=== PATIENT | female | born 1950 | race Caucasian/White ===

== ENCOUNTER → 2016-06-24 | Outpatient (CLI) | payer MEDICARE, BC ==
--- NOTE | 2016-06-27 09:24 | MM ---
Reason for exam: screening (asymptomatic). Last mammogram was performed 1 year and 2 months ago. History: Patient is postmenopausal. Family history of premenopausal breast cancer in sister at age 53. Excisional biopsy of the left breast, 1986. Taking estrogen for 15 years beginning at age 48. Physical Findings: A clinical breast exam by your physician is recommended on an annual basis and results should be correlated with mammographic findings. MG Screening Mammo w CAD Bilateral CC and MLO view(s) were taken. Prior study comparison: May 07, 2015, bilateral MG screening mammo w CAD. April 03, 2014, bilateral MG screening mammo w CAD. There are scattered fibroglandular densities. Finding: There are typically benign calcifications in both breasts. There is a chronic nodularity in the left breast. No significant changes in finding since May 07, 2015 and April 03, 2014. ASSESSMENT: Benign, BI-RAD 2 RECOMMENDATION: Routine screening mammogram of both breasts in 1 year.
== END | disposition home or self-care (01) ==
LOC: RADMAMWWP 10:40
PROVIDERS: ATTEND Obstetrics & Gynecology
DX: Z12.31 Encounter for screening mammogram for malignant neoplasm of breast (principal); Z80.3 Family history of malignant neoplasm of breast

== ENCOUNTER → 2016-08-15 | Outpatient (CLI) | payer MEDICARE, BC ==
--- NOTE | 2016-08-15 15:14 | BD ---
EXAMINATION TYPE: MG DEXA axial skeleton. DATE OF EXAM: 08/15/2016 1:08 PM COMPARISON: NONE CLINICAL HISTORY: 66-year-old female postmenopausal screening Height: 63 Weight: 202.4 FRAX RISK QUESTIONS: Alcohol (3 or more units per day): yes Family History (Parent hip fracture): no Glucocorticoids (More than 3mos): no (Ex: prednisone, prednisolone, methylprednisolone, dexamethasone, and hydrocortisone). History of Fracture in Adulthood: no Secondary Osteoporosis: 1. Type 1 Diabetes: no 2. Hyperthyroidism: no 3. Menopause before 45: no 4. Malnutrition: no 5. Chronic liver disease: no Rheumatoid Arthritis: no Current Tobacco Use: no RISK FACTORS HISTORY OF: Hip Fracture (Right/Left): no Spine Fracture: no History of Wrist Fracture: no Surgery to Spine/Hip(right/left)/Wrist (right/left): lumbar spine -fusion When: 2012 Family History of Osteoporosis: yes Active: yes Diet low in dairy products/other sources of calcium: no Postmenopausal woman: hysterectomy age 43 Lost more than 2 inches in height since high school: yes Frequent falls: no Poor Health: no Adrenal Insufficiency: no MEDICATIONS: Thyroid Medications: levothyroxine How Lon years Additional History: EXAM MEASUREMENTS: Bone mineral densitometry was performed using the [employer] System. Bone mineral density about the R hip (g/cm2): 1.242 Bone mineral density about the L hip (g/cm2): 1.192 T Score values are as follows: -----R Neck: 1.5 -----L Neck: 1.1 -----R Intertrochanter: 0.9 -----L Intertrochanter: 0.0 Bone mineral density has: baseline here IMPRESSION: Normal bone mineral density as measured in the hips. Rescreen in 5 years. NOTE: T-SCORE=SD OF THE YOUNG ADULT MEAN.
== END | disposition home or self-care (01) ==
LOC: RADBDWWP 12:49
PROVIDERS: ATTEND Internal Medicine
DX: M81.0 Age-related osteoporosis without current pathological fracture (principal)
CPT/HCPCS: 77080

== ENCOUNTER → 2017-02-08 | Outpatient (CLI) | payer MEDICARE, BC ==
[2017-02-08 13:52] LABS: Blood Urea Nitrogen 24 mg/dL (7-17); Non-African American GFR(MDRD) 50 (>60 ml/min/1.73 sqM)
--- NOTE | 2017-02-08 15:49 | CT ---
EXAMINATION TYPE: CT urogram wo/w con DATE OF EXAM: 02/08/2017 HISTORY: Microscopic hematuria CT DLP: 3228mGycm Automated Exposure Control for Dose Reduction was Utilized. CONTRAST: CT scan of the abdomen and pelvis is performed without and with IV Contrast, patient injected with 80 ml mL of Visipaque 320. Urogram protocol with Three-D reconstructed images created on independent wo rkstation and reviewed. COMPARISON: None. FINDINGS: KUB: Noncontrast images show no renal calculi identified bilaterally. Postcontrast images show symmet bret cortical medullary uptake and excretion from both kidneys without evidence of concerning renal ma ss or hydronephrosis seen bilaterally. Visualized portion of both ureters show no suspicious filling defect. Urinary bladder is satisfactorily distended without abnormal intraluminal mass or wall thicke vidal. There are few scattered small pelvic phlebolith inferior to the bladder. LUNG BASES: No significant abnormality is appreciated. LIVER/GB: Liver is diffusely low dense consistent with fatty infiltration. There is 3.0 x 2.0 cm simp le appearing cyst right hepatic lobe on axial image 26. PANCREAS: No significant abnormality is seen. SPLEEN: There is tiny splenule anteriorly and laterally to the spleen seen on axial series 6 image 26 ADRENALS: No significant abnormality is seen. BOWEL: Diverticula are seen scattered throughout the colon most prominent in the sigmoid colon. There is no CT evidence for acute diverticulitis. UTERUS/ADNEXA: Uterus is surgically absent. LYMPH NODES: No greater than 1cm abdominal or pelvic lymph nodes are appreciated. OSSEOUS STRUCTURES: There is multilevel posterior fusion hardware from L2 through S1 level in the lum bar spine. There is artifact metallic disc material L4-L5 level. There are multilevel bilateral michael ectomy defects and spinous process resection. There is moderate joint space loss and spurring in both hips. There is moderate multilevel spurring in the thoracic spine. OTHER: There is mild to moderate atherosclerotic change of aorta extending into branch vessels. IMPRESSION: No significant finding is seen to account for patient's clinical symptoms.
== END ==
LOC: RADCTMAIN 13:11
PROVIDERS: ATTEND Internal Medicine
DX: R31.29 Other microscopic hematuria (principal)
CPT/HCPCS: 82565; 84520; 74178; 36415; 74400; Q9967

== ENCOUNTER → 2017-07-27 | Outpatient (CLI) | payer MEDICARE, BC ==
--- NOTE | 2017-07-28 08:09 | MM ---
Reason for exam: screening (asymptomatic). Last mammogram was performed 1 year and 1 month ago. History: Patient is postmenopausal. Family history of premenopausal breast cancer in sister at age 53. Excisional biopsy of the left breast, 1986. Taking estrogen for 15 years beginning at age 48. Physical Findings: A clinical breast exam by your physician is recommended on an annual basis and results should be correlated with mammographic findings. MG 3D Screening Mammo W/Cad Bilateral CC and MLO view(s) were taken. Prior study comparison: June 24, 2016, bilateral MG screening mammo w CAD. May 07, 2015, bilateral MG screening mammo w CAD. There are scattered fibroglandular densities. There is no discrete abnormality. No significant changes when compared with prior studies. ASSESSMENT: Negative, BI-RAD 1 RECOMMENDATION: Routine screening mammogram of both breasts in 1 year.
== END | disposition home or self-care (01) ==
LOC: RADMAMWWP 12:17
PROVIDERS: ATTEND Obstetrics & Gynecology
DX: Z12.31 Encounter for screening mammogram for malignant neoplasm of breast (principal); Z80.3 Family history of malignant neoplasm of breast
CPT/HCPCS: 77063; 77067

== ENCOUNTER → 2017-08-11 | Outpatient (CLI) | payer MEDICARE, BC ==
--- NOTE | 2017-08-11 20:52 | CT ---
EXAMINATION TYPE: CT lumbar spine wo con DATE OF EXAM: 08/11/2017 6:26 PM COMPARISON: NONE HISTORY: Low back and bilateral hip pain, worse on right. CT DLP: 931 mGycm Automated exposure control for dose reduction was used. Unenhanced CT of the lumbar spine was performed. Bone and soft tissue window settings are submitted as well as coronal and sagittal reconstructions. There are rods and screws fusing posteriorly the lumbar spine from L2 to S1. There is a few millimete r anterior subluxation of L4 in relation L5 and also 5 mm subluxation of L3 in relation L4. There is a disc prosthesis at L4-5. This appears in good position. Exam is limited by the metal artifact. Ther e is no lumbar paraspinal mass. There is no compression fracture. There is multilevel laminectomy def ect. Sacroiliac joints are intact. I see no focal bone destruction. There is osteosclerosis on both s ides of the L1-2 disc. There is vacuum disc at L1-2. I do not see evidence of obvious bony spinal beti nosis at the surgery levels. The spinal canal is narrowed at L1-2 due to facet arthropathy and mild p osterior disc herniation.. IMPRESSION: Multilevel fusion surgery. Degenerative mild subluxation at L3-4 L4-5. There is a mild spinal stenosi s at L-1-2 level due to posterior central disc herniation and hypertrophic facet arthropathy. No comp ression fracture.
== END | disposition home or self-care (01) ==
LOC: RADCTMAIN 18:05
PROVIDERS: ATTEND Internal Medicine
DX: M51.26 Other intervertebral disc displacement, lumbar region (principal); M46.96 Unspecified inflammatory spondylopathy, lumbar region
CPT/HCPCS: 72131

== ENCOUNTER → 2017-09-11 | Outpatient (CLI) | payer MEDICARE, BC ==
[2017-09-06 15:03] VITALS: BMI 33.7
[2017-09-11 14:24] VITALS: BP 140/82; PULSE 94; RESP 16
--- NOTE | 2017-09-11 15:17 | P.CONS ---
History of Present Illness - Reason for Consult Consult date: 09/11/17 - Chief Complaint Lower back pain - History of Present Illness This is a 67-year-old pleasant patient with a history of chronic lower back pain with radiation to the left knee and occasionally to the left ankle. The patient denies any numbness or tingling in the left leg or any weakness. She also denies any bowel or bladder dysfunction. The pain wakes her up at night but she denies any weight loss recently. Her pain gets worse by prolonged activities and improves by sitting down or lying down in bed. The patient takes ibuprofen for her pain. She tried tramadol and baclofen that she had to stop using them because of side effects. She used small dose of [place] previously which helped her pain. The patient had 2 back surgeries one in 1982 and a second one in 2012 and ended with fusion between L2 and S1. She had a computed tomography scan of the lumbar spine in July 2017 which showed rods and screws using posteriorly the lumbar spine from L2 to S1 and a vacuum disc at L1-L2 level also it showed spinal stenosis at the L1-L2. The patient lives with her and she denies using tobacco Review of Systems Constitutional: Denies as per HPI, Denies anorexia, Denies chills, Denies chronic headaches, Denies chronic pain, Denies daytime sleepiness, Denies fatigue, Denies fever, Denies lethargy, Denies malaise, Denies night sweats, Denies poor appetite, Denies sweats, Denies weakness, Denies weight gain, Denies weight loss Eyes: denies blurred vision, denies pain Cardiovascular: Denies chest pain, Denies shortness of breath Respiratory: Denies cough Gastrointestinal: Denies abdominal pain, Denies diarrhea, Denies nausea, Denies vomiting Musculoskeletal: Reports as per HPI Past Medical History Past Medical History: Asthma, Hyperlipidemia, Thyroid Disorder Additional Past Medical History / Comment(s): varicose veins, allergy induced asthma, arthritis, degenerative disks, History of Any Multi-Drug Resistant Organisms: None Reported Past Surgical History: Back Surgery, Hysterectomy, Joint Replacement, Orthopedic Surgery, Tonsillectomy Additional Past Surgical History / Comment(s): spinal fusion, laminectomy, rt carpal tunnel, partial left knee replacement, rt knee replacement, COLONOSCOPY, EGD Past Anesthesia/Blood Transfusion Reactions: Motion Sickness Past Psychological History: No Psychological Hx Reported Smoking Status: Never smoker Past Alcohol Use History: Occasional Past Drug Use History: None Reported - Past Family History Father Family Medical History: Cancer Sister(s) Family Medical History: Cancer Medications and Allergies Home Medications Medication Instructions Recorded Confirmed Type Levothyroxine Sodium [Synthroid] 50 mcg PO DAILY 01/28/14 09/11/17 History Estrogens, Conjugated [Premarin] 0.3 mg PO DAILY 09/06/17 09/11/17 History Ibuprofen [Advil] 400 - 600 mg PO Q8HR PRN 09/06/17 09/11/17 History Loratadine [Claritin] 10 mg PO DAILY 09/06/17 09/11/17 History Allergies Allergy/AdvReac Type Severity Reaction Status Date / Time Sulfa (Sulfonamide Allergy swelling,hi Verified 09/11/17 14:07 Antibiotics) ves adhesive tape AdvReac raw skin Uncoded 09/11/17 14:07 Physical Exam Vitals: Vital Signs Pulse Resp BP 09/11/17 14:10 94 16 140/82 - Constitutional General appearance: obese - EENT Eyes: PERRLA - Neurologic Neurologic: CNII-XII intact - Psychiatric Psychiatric: A&O x's 3, appropriate affect, intact judgment & insight Neuro exam of the lower extremities showed normal muscle strength and symmetrically and decreased knee reflexes bilaterally plus absent ankle reflexes bilaterally. Straight leg raising test negative bilaterally. Positive tenderness around the left sacroiliac joint. Wagner's test positive on the left side. Internal and external rotation of the hip joint on the left side did not elicit any hip pain. She has well-healed lumbar scar from her previous surgeries. She has tenderness in the lumbar paravertebral area bilaterally. Assessment and Plan Plan: This is a 67-year-old female with history of chronic lower back pain with radiation to the left leg with no paresthesia. The patient also does not have any weakness in the lower extremities or any bowel or bladder dysfunction. She might have left sacroiliac joint dysfunction and inflammation/sacroiliitis. He also has lumbar postlaminectomy pain syndrome. The patient may benefit from getting left sacroiliac joint steroid injection under fluoroscopic guidance. If this procedure does not help the patient's pain then we'll try caudal epidural steroid injection with lysis of adhesions. The patient also may be a candidate for spinal cord stimulator in the future. I'll give the patient prescription for [place] 5 mg 60 pills for one month if needed for severe pain. I thank you for the consultation
== END | disposition home or self-care (01) ==
LOC: PNWHC3 13:20
PROVIDERS: ATTEND Anesthesiology
DX: G89.29 Other chronic pain (principal); M54.5 Low back pain; M48.061 Spinal stenosis, lumbar region without neurogenic claudication; M96.1 Postlaminectomy syndrome, not elsewhere classified; M46.1 Sacroiliitis, not elsewhere classified; M53.88 Other specified dorsopathies, sacral and sacrococcygeal region; E78.5 Hyperlipidemia, unspecified; E07.9 Disorder of thyroid, unspecified; J45.909 Unspecified asthma, uncomplicated; Z79.891 Long term (current) use of opiate analgesic; Z79.1 Long term (current) use of non-steroidal anti-inflammatories (NSAID); Z98.890 Other specified postprocedural states; Z98.1 Arthrodesis status; Z96.653 Presence of artificial knee joint, bilateral; Z79.899 Other long term (current) drug therapy; Z88.2 Allergy status to sulfonamides; Z88.8 Allergy status to other drugs, medicaments and biological substances; Z79.52 Long term (current) use of systemic steroids
CPT/HCPCS: 99211

== ENCOUNTER 2017-09-14 08:16 | Day surgery (SDC) | payer MEDICARE, BC ==
[2017-09-12 11:23] VITALS: BMI 34.3
[2017-09-14 09:33] VITALS: TEMP 98.1
[2017-09-14] MEDS ORDERED: LACTATED RINGERS 1,000 ML IV ONE (09:41)
[2017-09-14] MEDS ORDERED: LIDOCAINE 1% 20 ML VIAL (10MG/ML) FOR IV START INTRADERMA ONE (09:43)
--- NOTE | 2017-09-14 10:17 | P.PCN ---
Date of Procedure: 09/14/17 Surgeon: Salomón Yeung Description of Procedure: Preoperative diagnoses: Left sacroilitis Postoperative diagnoses: Left sacroilitis. Procedure: Left sacroiliac joint steroid injection under fluoroscopic guidance. Surgeon: Salomón Yeung MD Anesthesia: IV sedation per hospital guidelines EBL: None Procedure indication: The patient had a history of severe chronic low back pain , diagnosed with sacroiliitis and lumbar sacral facet arthropathy unresponsive to conservative treatment. She has a history of previous back surgery. She has pain in her back and also significantly in her left sacroiliac joint. It radiates down her leg as well. Procedure description: The patient was seen and identified in the preoperative holding area, risks and benefits and alternative of the procedure and possible complications discussed with the patient, and he agreed with the preceding, patient signed the consent, an IV was started, and vital signs were monitored and were stable throughout the procedure, patient was placed in the prone position or table and the lumbosacral area was prepped and draped with a sterile fashion, vital signs were closely monitored during the procedure, the fluoroscopy camera was placed in the contralateral oblique view on the left sacroiliac joint and the lower part of the joint was identified a 2 mL then a 25 -gauge Quincke-type spinal needle advanced slowly under fluoroscopy and placed in the posterior and inferior border of the left sacroiliac joint, placement confirmed with AP and lateral view, and after appropriate needle placement confirmed and after negative aspiration for heme and CSF and there was , 3 ml of Marcaine 0.5% and 40 mg of Kenalog injected after negative aspiration, no paresthesia during the injection, no resistance to injection, and the needle was removed. The entire same procedure was repeated for the left sacroiliac joint Patient tolerated the procedure well without any complication. The patient returned to supine position after the back was cleaned and a Band- Aid applied, the patient transported to recovery room in stable condition and he was monitored for 30 minutes before he was discharged home and then patient was reexamined before going home and patient was discharged in stable condition and patient will follow up for repeat of left sacroiliac joint injection followed by caudal epidural steroid injection.
[2017-09-14] MEDS ORDERED: IV FLUID CONTINUATION 1,000 ML IV ONE (10:32)
[2017-09-14 10:38] VITALS: RESP 18
[2017-09-14 10:51] VITALS: BP 168/78; PULSE 71
--- NOTE | 2017-09-14 11:12 | FL ---
EXAMINATION TYPE: FL guided pain mgmt statistic DATE OF EXAM: 09/14/2017 CLINICAL HISTORY: Low back and left sacroiliac joint pain. TECHNIQUE: Fluoroscopy. COMPARISON: None. FINDINGS: Fluoroscopic guidance was provided during pain relief procedure performed by Dr. Yeung . A total of 1 second of fluoroscopic time was utilized during the procedure and single spot fluorosco pic image is acquired. Single image acquired shows needle localization at level of right sacroiliac joint. There is partial visualization of surgical change in the lower lumbar spine. IMPRESSION: As Above.
== END 2017-09-14 11:04 | disposition home or self-care (01) ==
LOC: ORPAIN 08:16
PROVIDERS: ATTEND Anesthesiology
DX: G89.29 Other chronic pain (principal); M46.1 Sacroiliitis, not elsewhere classified; M96.1 Postlaminectomy syndrome, not elsewhere classified; M46.97 Unspecified inflammatory spondylopathy, lumbosacral region; Z98.1 Arthrodesis status; J45.909 Unspecified asthma, uncomplicated; E78.5 Hyperlipidemia, unspecified; E07.9 Disorder of thyroid, unspecified; I83.90 Asymptomatic varicose veins of unspecified lower extremity; M19.90 Unspecified osteoarthritis, unspecified site; Z96.653 Presence of artificial knee joint, bilateral; Z79.890 Hormone replacement therapy; Z79.899 Other long term (current) drug therapy; Z88.2 Allergy status to sulfonamides
CPT/HCPCS: J2250; J1030; G0260; 27096

== ENCOUNTER → 2017-10-09 | Outpatient (CLI) | payer MEDICARE, BC ==
[2017-10-09 13:28] VITALS: BP 145/89; PULSE 82; RESP 16
--- NOTE | 2017-10-09 13:51 | P.PN ---
Progress Note - Text Progress Note Date: 10/09/17 his is a 67-year-old female with history of chronic lower back pain with radiation to the left leg with no paresthesia. The patient also does not have any weakness in the lower extremities or any bowel or bladder dysfunction. She might have left sacroiliac joint dysfunction and inflammation/sacroiliitis. He also has lumbar postlaminectomy pain syndrome. The patient had more than 50% of pain relief after her sacroiliac joint steroid injection recently. She still gets pain in the right groin anteriorly and in the back of her right thigh. The patient was told by her primary care physician to stop using ibuprofen which she thinks it will be a hardship for her because of her dependence on this medicine for many years. She was only 3 pills of [place] since last time we saw her and she still has 37 pills left of the last prescription that she received from us for 60 pills. By physical exam she is alert oriented 3 in no apparent distress Neuro exam of the lower extremities within normal limits with no changes from previously. Internal and external rotation of the right hip joint did not elicit any pain. The patient is going to receive her second sacroiliac joint steroid injection tomorrow. The patient will come off ibuprofen and now she will depend completely on [place] for her pain. We will see how many pills of [place] we will be needed to control her pain. If the patient gets good results of the sacroiliac joint injection for the second time then we plan on doing RFA of L5,S1,2,3 MB in the future, however the patient understands that sometimes RFA does not give the same results as the SI injection injection. We will see the patient 4 weeks from now.
== END | disposition home or self-care (01) ==
LOC: PNWHC3 13:05
PROVIDERS: ATTEND Anesthesiology
DX: G89.29 Other chronic pain (principal); M53.3 Sacrococcygeal disorders, not elsewhere classified; M46.1 Sacroiliitis, not elsewhere classified; M96.1 Postlaminectomy syndrome, not elsewhere classified; Z79.891 Long term (current) use of opiate analgesic
CPT/HCPCS: 99211

== ENCOUNTER → 2017-10-10 | Day surgery (SDC) | payer MEDICARE, BC ==
[2017-10-04 16:12] VITALS: BMI 34.3
[~2017-10-10] MED LIST: IV FLUID CONTINUATION 1,000 ML IV ONE; LACTATED RINGERS 1,000 ML IV ONE; LACTATED RINGERS 1,000 ML IV SCH; LIDOCAINE 1% 20 ML VIAL (10MG/ML) FOR IV START INTRADERMA ONE
[2017-10-10 09:01] VITALS: RESP 16; TEMP 98.1
[2017-10-10 09:07] LABS: Glucose,Whole Blood 73 mg/dL (75-99)
--- NOTE | 2017-10-10 10:33 | P.PCN ---
Date of Procedure: 10/10/17 Surgeon: Deo Mueller Pathology: none sent Condition: stable Disposition: PACU Description of Procedure: PREOPERATIVE DIAGNOSIS: 1-Bilateral sacroiliitis. 2 Lumbar DDD POSTOPERATIVE DIAGNOSIS:. 1-Bilateral sacroiliitis. 2 Lumbar DDD PROCEDURES: Left Sacroiliac joint steroid injection with fluoroscopic guidance ANESTHESIA: Local with 1% lidocaine; conscious sedation EBL: Minimal. PROCEDURE INDICATIONS: This patient with a history of low back pain secondary to sacroiliitis and lumbar DDD unresponsive to conservative management, #2 in series. No use of blood thinners. PROCEDURE DESCRIPTION: The patient was seen and identified in the preoperative area. Risks, benefits, complications, and alternatives were discussed with the patient (including but not limited to incomplete pain relief, bleeding, infection, nerve damage, and allergies to medications), the patient agreed to proceed with the procedure and signed the consent after all questions were answered. Patient was taken to the OR and time out was completed to verify proper patient , position, laterality of pain, and allergies. Pt was placed in the prone position and a pillow was placed under the abdomen to reduce lumbar lordosis. The lumbosacral area was prepped and draped in the usual sterile fashion. Critical pause was taken. Vital signs were closely monitored during the procedure. The fluoroscopic camera was placed in contralateral oblique view and right sacroiliiac joint lower pole was identified. After local infiltration with 1% lidocaine 2 ml, Subsequently, a 22-gauge 3.5 inch spinal needle was introduced into the posteroinferior aspect of the left sacroiliac joint under direct fluoroscopic visualization. Subsequently, 4 ml of a solution of a total of 4 ml solution containing total 3 mL of 0.5% preservative-free bupivicaine mixed with 40 mg of Kenalog was injected after negative aspiration for CSF, blood, and air and negative for paresthesia. Needle was withdrawn intact. Skin was cleansed, and bandages were applied. COMPLICATIONS: None. COMMENTS: DISPOSITION / PLANS: The patient was placed in a supine position and transferred to the recovery area in a stable condition for observation and was discharged from the recovery room after meeting discharge criteria. Home discharge instructions given to the patient by the staff. The patient was reexamined prior to discharge and there were no issues. The patient will schedule a follow up visit in clinic in 4 weeks.
--- NOTE | 2017-10-10 10:40 | FL ---
EXAMINATION TYPE: FL guided pain mgmt statistic DATE OF EXAM: 10/10/2017 HISTORY: Flouroscopy time 9 seconds of fluoroscopy provided. IMPRESSION: 1. Fluoroscopy time.
[2017-10-10 10:55] VITALS: BP 150/84; PULSE 60
== END | disposition home or self-care (01) ==
LOC: ORPAIN 08:29
PROVIDERS: ATTEND Anesthesiology
DX: G89.29 Other chronic pain (principal); M46.1 Sacroiliitis, not elsewhere classified; M96.1 Postlaminectomy syndrome, not elsewhere classified; M51.16 Intervertebral disc disorders with radiculopathy, lumbar region; Z88.2 Allergy status to sulfonamides; Z91.048 Other nonmedicinal substance allergy status
CPT/HCPCS: J2250; J3301; Q9966; G0260; 27096

== ENCOUNTER → 2017-11-07 | Outpatient (CLI) | payer MEDICARE, BC ==
[2017-11-07 12:26] VITALS: BP 151/81; PULSE 76; RESP 16
--- NOTE | 2017-11-07 13:38 | P.PAINPG ---
Subjective Progress Note Date: 11/07/17 This is follow-up visit for this patient with a history of severe and chronic low back pain secondary to left sacroiliac joint dysfunction/sacroiliitis. We have done interventional pain procedures left sacroiliac joint steroid injections 2 and she gets good pain relief Patients currently on [place] 5/325 every 6 hours , she is currently cannot take any NSAIDs because she had deterioration of her kidney functions, he tried Ultram in the past without any significant benefit Patient denies any side effects of the medication, denies excessive drowsiness or sleepiness, denies suicidal ideation, and reports that the current pain medication is helping to control the pain and improve activity of daily living Patient denies any motor or sensory deficit , patient denies any fever or night sweats, denies any change in the bowel movements or urination Physical Examinations : 1-Constitutional : Cooperative , not in acute distress . 2-HEENT : nech ; supple , no Lymphadenopathy , no Thyromegaly , normal thyroid size . eyes : no ptosis , no icterus, no photophobia . ENT : normal of hearing , normal oropharynx , no Thrush . 3- Respiratory : Chest clear to auscultations Bilaterally , no wheezing , no Rhonchi . 4- Cardiovascular : regular rate and rhythem , S1 , S2 , no S3 , no S4. 5- Gastrointestinal : abdomen soft no tenderness , bowel sounds positive all four quadrents , no organomegally . 6- Genitourinary : Defferred . 7- neurologic: Cranial nerve II to XII intact , no focal neurological deffecit . 8- Psychatric: alert , oriented X 3 , appropriate affect , intact judgment and insight . 9- Lymphatic : no Lymphadenopathy . 10- Musculoskeltal : exams of the Lumber spine =motor strength lower extremities ,thigh and legs .5/5 deep tendon reflexes : normal Knee Jerk , normal ankle Jerk . lumber facet Loading Test positive strait leg raising test negative bilaterally Fabere test negative bilaterally Range of motion: Range of motion in flexion of the lumbar spine decreased Range of motion range of motion of extension of the lumbar spine and decreased Sever tenderness over the Sacroiliac joint on the Left side , moderate tenderness on the right sacroiliac joint Assessment and plan = Chronic low back pain secondary to left sacroiliac joint dysfunction, left sacroiliitis, (currently she is having bilateral sacroiliitis) Status post left side sacroiliac joint steroid injections 2 to get good result after the sacroiliac joint steroid injections should he had more than 80 % improvement after the first sacroiliac joint injection and the pain relief lasted for a few weeks, and she had pain relief after the second injection her VNS and dropped from 8/10 -2/10 for a few hours, chronic and current use of high-risk medication (Opioids). The patient was counseled about risk of opioid use, psychological risk associated with opioids and was orally counseled to not overuse , divert,or sell dictations to take medications as prescribed only , and to restore medication in safe location , the patient counseled against driving while using narcotic medications , and also not to use alcohol or any illicit recreational drugs, patient's verbalized understanding that the lack of compliance will result in failure to renew narcotic prescription and possible discharge from the clinic - diagnoses, prognosis, and treatment options including but not limited to physical therapy, surgical interventions, interventional therapies , and medication management including narcotics and adjuvant medication were discussed with the patient and all the questions answered Prescription refill for [place] 5/325 every 8 hours dispensed 60 with 1 refill Patient will be good candidate to have a radiofrequency ablation of the left L5-S1 facet prominence and the radiofrequency ablation of the left lateral branches of S1/S2/S3 Patient very hesitant to have radiofrequency ablation of the left sacroiliac joint , she preferred to have a steroid injection, and because patient currently complaining of pain in both sides she will be good candidate to have bilateral sacroiliac joint steroid injections under fluoroscopy guidance PQRS Measure Charge Sheet Measure #130: Documentation of Current Meds in Medical Chart: Patient's medications documented in chart Measure #226: Tobacco Use: Screen & Cessation Intervention: Pt not a tobacco user Measure #111: Pneumonia Vaccination: Pneumococcal vaccine administered or previously received Measure #47: Advance Care Plan: Advance care planning discussed & documented, plan or surrogate given Measure #412: Opioid Treatment Agreement: Documented signed opioid trtmnt agreemnt min once during opioid trtmnt Measure #408: Opioid Therapy Follow-up Evaluation: Patient had f/u eval minimum every 3 months during opioid therapy Measure #317: Preventitive Care & Scrn High Bld Press & F/U: Pre-hypertensive or hypertensive BP documented, pt will f/u with PCP Measure #128: Body Mass Index (BMI) Screening & Follow-up: BMI documented ABOVE normal parameters - f/u documented Measure #131: Pain Assessment & Follow-up: Pain positive & plan documented, Follow-up scheduled Measure #431: Unhealthy Alcohol Use Preventative Care & Scrn: Patient not identified as an unhealthy alcohol user PQRS Narrative: Smoking Status Never smoker Narcotic Agreement Date Signed 09/11/17 Hx Alcohol Use (MH) Yes: social Home Medications: Ambulatory Orders Estrogens, Conjugated [Premarin] 0.3 mg PO DAILY 09/06/17 Ibuprofen [Advil] 400 - 600 mg PO BID 09/06/17 Loratadine [Claritin] 10 mg PO DAILY PRN 09/06/17 Aspirin 325 mg PO DAILY 09/12/17 Calcium Carbonate [Calcium] 600 mg PO DAILY 09/12/17 Fluticasone Nasal [place] [Flonase Nasal [place]] 1 spray EA NOSTRIL DAILY PRN 09/12 Levothyroxine Sodium [Synthroid] 75 mcg PO DAILY 09/12/17 HYDROcodone/APAP 5-325MG [[place] 5-325] 1 tab PO BID 10/09/17 Controlled Substance Measures - Controlled Substance Measures Is patient prescribed a controlled substance at discharge?: Yes When asked, does pt state using other controlled substances?: Yes If prescribed controlled substance>3 days was MAPS reviewed?: Yes If Rx opioid, was Start Talking consent form obtained?: Yes If opioid is for acute pain is fill amount 7 days or less?: No Was information provided regarding opioid addiction?: Yes
== END | disposition home or self-care (01) ==
LOC: PNWHC3 12:01
PROVIDERS: ATTEND Specialist
DX: G89.29 Other chronic pain (principal); M53.3 Sacrococcygeal disorders, not elsewhere classified; M46.1 Sacroiliitis, not elsewhere classified; Z79.891 Long term (current) use of opiate analgesic; Z79.1 Long term (current) use of non-steroidal anti-inflammatories (NSAID); Z79.82 Long term (current) use of aspirin; Z79.899 Other long term (current) drug therapy
CPT/HCPCS: 99211

== ENCOUNTER 2017-11-22 06:05 | Day surgery (SDC) | payer MEDICARE, BC ==
[2017-11-16 12:44] VITALS: BMI 34.3
--- NOTE | 2017-11-22 06:48 | P.PCN ---
Date of Procedure: 11/22/17 Description of Procedure: PREOPERATIVE DIAGNOSIS: 1-Bilateral sacroiliitis. 2 Lumbar DDD POSTOPERATIVE DIAGNOSIS:. 1-Bilateral sacroiliitis. 2 Lumbar DDD PROCEDURES: Left Sacroiliac joint steroid injection with fluoroscopic guidance ANESTHESIA: Local with 1% lidocaine; conscious sedation EBL: Minimal. PROCEDURE INDICATIONS: This patient with a history of low back pain secondary to sacroiliitis and lumbar DDD unresponsive to conservative management, #2 in series. No use of blood thinners. PROCEDURE DESCRIPTION: The patient was seen and identified in the preoperative area. Risks, benefits, complications, and alternatives were discussed with the patient (including but not limited to incomplete pain relief, bleeding, infection, nerve damage, and allergies to medications), the patient agreed to proceed with the procedure and signed the consent after all questions were answered. Patient was taken to the OR and time out was completed to verify proper patient , position, laterality of pain, and allergies. Pt was placed in the prone position and a pillow was placed under the abdomen to reduce lumbar lordosis. The lumbosacral area was prepped and draped in the usual sterile fashion. Critical pause was taken. Vital signs were closely monitored during the procedure. The fluoroscopic camera was placed in contralateral oblique view and right sacroiliiac joint lower pole was identified. After local infiltration with 1% lidocaine 2 ml, Subsequently, a 25-gauge 3.5 inch spinal needle was introduced into the posteroinferior aspect of the left sacroiliac joint under direct fluoroscopic visualization. Subsequently, 4 ml of a solution of a total of 4 ml solution containing total 3 mL of 0.5% preservative-free bupivicaine mixed with 40 mg of Kenalog was injected after negative aspiration for CSF, blood, and air and negative for paresthesia. Needle was withdrawn intact. Skin was cleansed, and bandages were applied. COMPLICATIONS: None. COMMENTS: DISPOSITION / PLANS: The patient was placed in a supine position and transferred to the recovery area in a stable condition for observation and was discharged from the recovery room after meeting discharge criteria. Home discharge instructions given to the patient by the staff. The patient was reexamined prior to discharge and there were no issues. The patient will schedule a follow up visit in clinic in 4 weeks.
[2017-11-22 06:53] VITALS: RESP 16; TEMP 98.2
[2017-11-22] MEDS ORDERED: LIDOCAINE 1% 20 ML VIAL (10MG/ML) FOR IV START INTRADERMA ONE (06:53)
[2017-11-22] MEDS ORDERED: FAMOTIDINE 20 MG/2 ML VIAL ONE (06:54)
[2017-11-22] MEDS ORDERED: LACTATED RINGERS 1,000 ML IV SCH (07:00)
[2017-11-22] MEDS ORDERED: IV FLUID CONTINUATION 1,000 ML IV ONE ×2 (07:33)
--- NOTE | 2017-11-22 07:41 | FL ---
Fluoroscopy INDICATION: Pain FINDINGS: Fluoroscopy time: 36 seconds. Images obtained: 2. IMPRESSIONS: 1. Documentation of fluoroscopy.
[2017-11-22 07:54] VITALS: BP 149/82; PULSE 67
== END 2017-11-22 08:05 | disposition home or self-care (01) ==
LOC: ORPAIN 06:05
PROVIDERS: ATTEND Anesthesiology
DX: M46.1 Sacroiliitis, not elsewhere classified (principal); M51.36 Other intervertebral disc degeneration, lumbar region; Z79.899 Other long term (current) drug therapy; Z88.2 Allergy status to sulfonamides
CPT/HCPCS: J2250; J3301; J3010; G0260; 99152

== ENCOUNTER → 2017-12-25 | Outpatient (CLI) | payer MEDICARE, BC ==
[2017-12-25 12:03] VITALS: BP 149/84; PULSE 84; RESP 18
--- NOTE | 2017-12-25 15:02 | P.PAINPG ---
Subjective Progress Note Date: 12/25/17 This is follow-up visit for this patient with a history of severe and chronic low back pain secondary to lumbar postlaminectomy pain syndrome, left sacroiliitis, We have done an interventional pain procedure left sacroiliac joint steroid injection she got good relief but for short term The patient currently on [place] 5/325 twice a day and Motrin 600 mg when necessary Patient denies any side effect of the medication , patient denies any excessive drowsiness or sleepiness, patient denies any suicidal ideation, Patient reported that the current medication is helping to control the pain and improve the activity of daily livings, Patient denies any motor or sensory deficit, denies any change in the bowel movement or urination, patient denies any fever or night sweats. Patient here today for follow-up visit and medication refill Objective - Vital Signs Vital signs: Vital Signs Temp Pulse 84 12/25/17 11:54 Resp 18 12/25/17 11:54 BP 149/84 12/25/17 11:54 Pulse Ox 94 L 12/25/17 11:54 Intake & Output 12/24/17 12/25/17 12/25/17 18:59 06:59 18:59 Weight 90.718 kg - Exam Physical Examinations : 1-Constitutiona : Cooperative , not in acute distress . 2-HEENT : nech ; supple , no Lymphadenopathy , normal thyroid size . eyes : no ptosis , no icterus , no photophobia . ENT : normal of hearing , normal oropharynx , no Thrush . 3- Respiratory : Chest clear to auscultations Bilaterally , no wheezing , no Rhonchi . 4- Cardiovascular : regular rate and rhythem , S1 , S2 , no S3 , no S4. 5- Gastrointestinal : abdomen soft no tenderness , bowel sounds , no organomegally . 6- Genitourinary : Defferred . 7- neurologic : Cranial nerve II to XII intact , no focal neurological deffecit . 8-psychatric : alert , oriented X 3 , appropriate affect , intact judgment and insight . 9-Lymphatic : no Lymphadenopathy . 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, left sacroiliitis, she had good result after the left sacroiliac joint steroid injection but only for short chronic and current use of high-risk medication (opioids) Patient denies any side effects of the current pain medication and the current treatment/medication helping the patient to do activity of daily living , Diagnoses, prognosis, treatment options, including but not limited to physical therapy, medication management, interventional therapies, and surgery, were discussed with the patient All the questions answered The narcotic consent was signed and patient agreed and understood the side effects and complications of opioid treatment. Patient signed the narcotic agreement, and was orally counseled, not to overuse, not to abuse, not to Divert , not tp sell pain medication, and to take it as prescribed only, Patient was counseled not to drive or operate heavy equipment while using narcotic medication, and advised not to use alcohol or any Illicit drugs while using the narcotis, the patient's verbalized understanding that lack of compliance with any of the above instructions, will likely to cause discharge from, the pain service, not to renew his narcotic prescriptions Medication managements= patient will be given prescription refills for [place] 5/325 every 12 hours dispense 60 with 1 refill, Interventions= patient will be good candidate for radiofrequency ablation of the left-sided L5-S1 Dorsal ramus , and radiofrequency ablation of the left side lateral branches of S1/S2/S3 Procedure risk and benefit from alternative discussed with the patient she agreed with proceeding , PQRS Measure Charge Sheet Measure #130: Documentation of Current Meds in Medical Chart: Patient's medications documented in chart Measure #226: Tobacco Use: Screen & Cessation Intervention: Pt not a tobacco user Measure #111: Pneumonia Vaccination: Pneumococcal vaccine administered or previously received Measure #47: Advance Care Plan: Advance care planning discussed & documented, pt chose/unable to give Measure #412: Opioid Treatment Agreement: Documented signed opioid trtmnt agreemnt min once during opioid trtmnt Measure #408: Opioid Therapy Follow-up Evaluation: Patient had f/u eval minimum every 3 months during opioid therapy Measure #317: Preventitive Care & Scrn High Bld Press & F/U: Pre-hypertensive or hypertensive BP documented, pt will f/u with PCP Measure #128: Body Mass Index (BMI) Screening & Follow-up: BMI documented ABOVE normal parameters - f/u documented Measure #131: Pain Assessment & Follow-up: Pain positive & plan documented, Follow-up scheduled Measure #431: Unhealthy Alcohol Use Preventative Care & Scrn: Patient not identified as an unhealthy alcohol user PQRS Narrative: Smoking Status Never smoker Do You Want the Pneumonia Yes Vaccine AT THIS TIME? Narcotic Agreement Date Signed 09/11/17 Blood Pressure 149/84 Pain Intensity [Lower Back] 6 Scale Used Numeric (1 - 10) Hx Alcohol Use (MH) Yes: social Home Medications: Ambulatory Orders Estrogens, Conjugated [Premarin] 0.3 mg PO DAILY 09/06/17 Ibuprofen [Advil] 400 - 600 mg PO BID 09/06/17 Loratadine [Claritin] 10 mg PO DAILY PRN 09/06/17 Aspirin 325 mg PO DAILY 09/12/17 Calcium Carbonate [Calcium] 600 mg PO DAILY 09/12/17 Fluticasone Nasal [place] [Flonase Nasal [place]] 1 spray EA NOSTRIL DAILY PRN 09/12 Levothyroxine Sodium [Synthroid] 75 mcg PO DAILY 09/12/17 HYDROcodone/APAP 5-325MG [[place] 5-325] 1 tab PO BID #60 tab 12/25/17 Controlled Substance Measures - Controlled Substance Measures Is patient prescribed a controlled substance at discharge?: Yes When asked, does pt state using other controlled substances?: No If prescribed controlled substance>3 days was MAPS reviewed?: Yes If Rx opioid, was Start Talking consent form obtained?: Yes If opioid is for acute pain is fill amount 7 days or less?: No Was information provided regarding opioid addiction?: Yes
== END | disposition home or self-care (01) ==
LOC: PNWHC3 11:35
PROVIDERS: ATTEND Specialist
DX: G89.29 Other chronic pain (principal); M96.1 Postlaminectomy syndrome, not elsewhere classified; M46.1 Sacroiliitis, not elsewhere classified; Z79.1 Long term (current) use of non-steroidal anti-inflammatories (NSAID); Z79.899 Other long term (current) drug therapy; Z79.82 Long term (current) use of aspirin; Z79.891 Long term (current) use of opiate analgesic
CPT/HCPCS: 99211

== ENCOUNTER 2018-01-16 08:34 | Day surgery (SDC) | payer MEDICARE, BC ==
[2018-01-11 11:52] VITALS: BMI 34.3
[~2018-01-16 08:34] MED LIST changes: -IV FLUID CONTINUATION 1,000 ML IV ONE; -LACTATED RINGERS 1,000 ML IV ONE; -LIDOCAINE 1% 20 ML VIAL (10MG/ML) FOR IV START INTRADERMA ONE
[2018-01-16 10:29] VITALS: PULSE 87; RESP 18; TEMP 99.3
[2018-01-16] MEDS ORDERED: LIDOCAINE 1% 20 ML VIAL (10MG/ML) FOR IV START INTRADERMA ONE (10:42)
[2018-01-16 10:52] LABS: Glucose,Whole Blood 83 mg/dL (75-99)
--- NOTE | 2018-01-16 11:53 | P.PCN ---
Date of Procedure: 01/16/18 Procedure(s) Performed: PREOPERATIVE DIAGNOSIS: 1-Lumbosacral spondylosis with facet arthropathy without myelopathy. 2- sacroiliit. 3- Failed back surgery syndrome lumbar area post operative Diagnosis: . 1-Lumbosacral spondylosis with facet arthropathy without myelopathy. 2- sacroiliit. 3- Failed back surgery syndrome lumbar area PROCEDURES: 1- Left radiofrequency thermocoagulation/ablation of the L5 dorsal ramus. 2- Left multi-site radiofrequency thermocoagulation/ablation of the S1, S2, lateral branchs. The procedure was performed using fluoroscopic guidance during needle placement to assure proper position and maximize safety . ANESTHESIA: LOCAL ANESTHESIA = moderate sedation with intravenous versed 2 mg and Fentanyle 100 mcg EBL: NONE INDICATION/MEDICAL NECESSITY: History of low back pain secondary to sacroiliitis and lumbosacral arthropathy unresponsive to more conservative treatments. The patient reported more than 50 % relief of pain symptoms . PROCEDURE DESCRIPTION: The patient was seen and identified in the preoperative area. Risks, benefits, complications, and alternatives were discussed with the patient. The patient agreed to proceed with the procedure and signed the consent. Vital signs were checked before and after the procedure and they remained stable. Patient ambulated to the procedure room and time out was completed. The patient was placed in the prone position on the procedure table and a pillow was placed under the abdomen to reduce lumbar lordosis. The lumbosacral area was prepped and draped in the usual sterile fashion. Critical pause was taken. L5 Dorsal Ramus RF: Using right oblique fluoroscopy, the junction of the transverse process and the superior articular process of the Left S1 vertebra, which correspond to the fluoroscopic image of the "eye of the Chaz dog" was identified. Subsequently, a 10-cm 20 -gauge ( VENUM ) radiofrequency cannula with a 10-mm active tip was advanced under fluoroscopic guidance until contact was made with periosteum. At this level, the Sensory testing of the L5 dorsal ramus was performed at 50 Hz and 0 to 1 volt with production of concordant pain starting at 0.5 volt. Motor stimulation was done at 2.5 Hz with stimulation of mulitifidus muscle contration . No radicular symptoms or paresthesias were produced during the testing. Subsequently, the L5 dorsal ramus was subjected to a radiofrequency ablation at 80 degree celsius for 90 seconds . after 0.5% Bupivacaine 1 ml mixed with 20 mg Kenalog ,injected at each level after negative aspirations .. S1, S2 Lateral Branch RF: The lateral margins of the Left S1, S2, foramina were identified using AP fluoroscopy. Under fluoroscopic guidance, three 10-cm 20 -gauge ( VENUM ) radiofrequency cannula with a 10-mm active tip were inserted at 8-10 mm peripheral to the posterior S1 foramen, at various locations using clock-face coordinates. The center of the clock was registered at the lateral margin of the foramen. The 9:30, 8:00, and 6:30 oclock positions were used. At this level , the sensory testing of the S1 lateral branch was performed at 50 Hz and 0 to 1 volt at the three levels with production of concordant pain starting at 0.5 volt. Motor stimulation was done at 2.5 Hz. No radicular symptoms or paresthesias were produced during the testing. Subsequently, the S1 lateral branch was subjected to a radiofrequency ablation at a mode of 90 seconds at 80 degrees Celsius at the 3 levels after negative motor and sensory testing and after injecting 0.5 ml of preservative free Bupivacaine 0.5 %. The same procedure was performed at the level of the S2 foramen. I was not able to visualize S3 foramina The needle was withdrawn intact after each injection. COMPLICATIONS: The patient tolerated the procedure well without any acute complications. DISPOSTION/PLAN: The patient ambulated to the recovery area after the procedure in a stable condition for observation. Patient was reexamined prior to discharge. Patient was observed for 30 minutes in the recovery area and was discharged home, accompanied by an adult, after meeting discharged criteria. Discharge instructions were give to the patient by the staff. Patient was specifically instructed not to drive today and to rest for the rest of the day. The patient will schedule a follow up visit in the clinic in weeks or earlier if needed.
[2018-01-16] MEDS ORDERED: IV FLUID CONTINUATION 1,000 ML IV ONE (11:56)
--- NOTE | 2018-01-16 11:59 | FL ---
Fluoroscopy HISTORY: Pain 13 seconds fluoroscopy time supplied to the referring clinician. 7 intraoperative C-arm images docum ent the procedure. See dictated report from anesthesia.
[2018-01-16 12:30] VITALS: BP 153/72
== END 2018-01-16 12:34 | disposition home or self-care (01) ==
LOC: ORPAIN 08:34
PROVIDERS: ATTEND Specialist
DX: M47.817 Spondylosis without myelopathy or radiculopathy, lumbosacral region (principal); M46.1 Sacroiliitis, not elsewhere classified; M96.1 Postlaminectomy syndrome, not elsewhere classified; Z88.2 Allergy status to sulfonamides; Z91.048 Other nonmedicinal substance allergy status; Z90.710 Acquired absence of both cervix and uterus
CPT/HCPCS: 64640; 64635; J2250; J3301; J3010; 99152; 99153

== ENCOUNTER → 2018-02-01 | Outpatient (CLI) | payer MEDICARE, BC ==
[2018-02-01 13:40] VITALS: BP 135/86; PULSE 91; RESP 16
--- NOTE | 2018-02-01 14:04 | P.PN ---
Subjective Progress Note Date: 02/01/18 This is a 68-year-old lady with history of chronic lower back pain due to failed back surgery syndrome. The patient underwent left sacroiliac joint residency ablation lately which relieved part of her pain however she still has pain at the L5-S1 junction. Recently also she notes swelling around the left elbow however she denies any fever or chills. The patient has been taking 2 pills a day of [place] 5 mg for her lower back pain. Today, pt denies new-onset weakness, bowel/bladder incontinence, or any other signs or symptoms of cauda equina syndrome. There are no signs of acute intoxication, and no indications of medication diversion or overuse. In addition to above, 13-point review of systems is also negative for chest pain , shortness of breath, changes in vision, changes in hearing, new onset weakness , abdominal pain, diarrhea, extreme fatigue, malaise, fever, skin changes, homicidal or suicidal ideation, or bowel or bladder incontinence. Vital Signs: Reviewed in EMR Gen: AAOx3, NAD HEENT: PERRLA,hearing grossly normal Pulm: resp unlabored,CTA Heart:S1,S2, No Mur Neck: supple, trachea midline Positive tenderness in the left lumbar paravertebral area Neuro: CN II-XII grossly intact, Imaging: Reviewed in EMR/chart Assessment: Failed back surgery syndrome Lumbar spondylosis without myelopathy Bursitis in the left elbow with possible infection Plan: 1. Explanation: Opioid and psychological risk scores were reviewed. Diagnoses , prognoses, and multiple treatment options including but not limited to physical therapy, interventional therapies, adjuvant medical therapies, narcotic medication therapies, and surgery were discussed with the patient and all questions were answered to the patient's satisfaction. 2. Opioid agreement: Signed with the patient and the patient is warned not to use opioids while driving or before driving and not to combine opioids with benzodiazepines or alcohol. 3. Counseling: The patient was counseled extensively on SMOKING CESSATION, BODY MASS INDEX, EXERCISE. Specifically, the patient was instructed regarding the importance of smoking cessation, obesity, and exercise in the context of both chronic pain and overall health. 4. Procedures: none at this point however she might benefit from getting caudal epidural steroid injection in the future 5. Consultations: The patient will see Dr. Aldridge for possible course of antibiotics because of her left elbow bursitis 6. Investigations: None 7. Medications: Continue [place] 5 mg twice a day and I will give her prescription for 60 pills today 8. Disposition: Return to clinic in 4 weeks from now 9. Maps were reviewed and were appropriate. Objective - Vital Signs Vital signs: Vital Signs Temp Pulse 91 02/01/18 13:30 Resp 16 02/01/18 13:30 BP 135/86 02/01/18 13:30 Pulse Ox Intake & Output 01/31/18 02/01/18 02/01/18 18:59 06:59 18:59 Weight 90.718 kg
== END | disposition home or self-care (01) ==
LOC: PNWHC3 13:14
PROVIDERS: ATTEND Anesthesiology
DX: G89.29 Other chronic pain (principal); M54.5 Low back pain; M96.1 Postlaminectomy syndrome, not elsewhere classified; M47.816 Spondylosis without myelopathy or radiculopathy, lumbar region; M70.32 Other bursitis of elbow, left elbow; Z79.891 Long term (current) use of opiate analgesic
CPT/HCPCS: 99211

== ENCOUNTER → 2018-03-01 | Outpatient (CLI) | payer MEDICARE, BC ==
[2018-03-01 14:12] VITALS: BP 145/79; PULSE 91; RESP 18
--- NOTE | 2018-03-03 14:35 | P.PAINPG ---
Subjective Progress Note Date: 03/01/18 This is follow-up visit for this patient with a history of severe and chronic low back pain secondary to lumbar postlaminectomy pain syndrome, left sacroiliitis, We have done an interventional pain procedure radiofrequency ablation of the left sacroiliac joint steroid injection ( done 2 monthes ago ), which was successful ,she reported that her pain in the low back area on the left side improved significantly, currently she is complaining of severe low back pain on the right side of low back The patient currently on [place] 5/325 twice a day and Motrin 600 mg when necessary Patient denies any side effect of the medication , patient denies any excessive drowsiness or sleepiness, patient denies any suicidal ideation, Patient reported that the current medication is helping to control the pain and improve the activity of daily livings, Patient denies any motor or sensory deficit, denies any change in the bowel movement or urination, patient denies any fever or night sweats. Patient here today for follow-up visit and medication refill Physical Examinations : 1-Constitutiona : Cooperative , not in acute distress . 2-HEENT : nech ; supple , no Lymphadenopathy , normal thyroid size . eyes : no ptosis , no icterus , no photophobia . ENT : normal of hearing , normal oropharynx , no Thrush . 3- Respiratory : Chest clear to auscultations Bilaterally , no wheezing , no Rhonchi . 4- Cardiovascular : regular rate and rhythem , S1 , S2 , no S3 , no S4. 5- Gastrointestinal : abdomen soft no tenderness , bowel sounds , no organomegally . 6- Genitourinary : Defferred . 7- neurologic : Cranial nerve II to XII intact , no focal neurological deffecit . 8-psychatric : alert , oriented X 3 , appropriate affect , intact judgment and insight . 9-Lymphatic : no Lymphadenopathy . 10- musculoskeltal : Lumber spine moter stegnth lower extremities ,thigh and legs 5/5 Right side , 5/5 Left side deep tendon reflexes : normal Knee Jerk , normal ankle Jerk positive lumber facet Loading Test Sever tenderness over the Sacroiliac joint on the Right sides ( new ) , no tenderness on the left side Straight leg raising test negative bilaterally. Wagner test negative bilaterally Assessment and plan= chronic low back pain secondary to lumbar failed back surgery syndrome, left sacroiliitis, she had good result after the radiofrequency ablation of left sacroiliac joint, Patient currently having clinical finding of right sacroiliitis chronic and current use of high-risk medication (opioids) Patient denies any side effects of the current pain medication and the current treatment/medication helping the patient to do activity of daily living , Diagnoses, prognosis, treatment options, including but not limited to physical therapy, medication management, interventional therapies, and surgery, were discussed with the patient All the questions answered The narcotic consent was signed and patient agreed and understood the side effects and complications of opioid treatment. Patient signed the narcotic agreement, and was orally counseled, not to overuse, not to abuse, not to Divert , not tp sell pain medication, and to take it as prescribed only, Patient was counseled not to drive or operate heavy equipment while using narcotic medication, and advised not to use alcohol or any Illicit drugs while using the narcotis, understanding that lack of compliance with any of the above instructions, will likely to cause discharge from, the pain service, not to renew his narcotic prescriptions Medication managements= patient will be given prescription refills for [place] 5/325 every 12 hours dispense 60 with 1 refill, Interventions= patient will be good candidate to have right side sacroiliac joint steroid injection Procedure risk and benefit from alternative discussed with the patient she agreed with proceeding , Objective - Vital Signs Vital signs: Vital Signs Temp Pulse 91 03/01/18 14:04 Resp 18 03/01/18 14:04 BP 145/79 03/01/18 14:04 Pulse Ox 96 03/01/18 14:04 PQRS Measure Charge Sheet Measure #130: Documentation of Current Meds in Medical Chart: Patient's medications documented in chart Measure #226: Tobacco Use: Screen & Cessation Intervention: Pt not a tobacco user Measure #111: Pneumonia Vaccination: Pneumococcal vaccine administered or previously received Measure #47: Advance Care Plan: Advance care planning discussed & documented, pt chose/unable to give Measure #412: Opioid Treatment Agreement: Documented signed opioid trtmnt agreemnt min once during opioid trtmnt Measure #408: Opioid Therapy Follow-up Evaluation: Patient had f/u eval minimum every 3 months during opioid therapy Measure #317: Preventitive Care & Scrn High Bld Press & F/U: Pre-hypertensive or hypertensive BP documented, pt will f/u with PCP Measure #128: Body Mass Index (BMI) Screening & Follow-up: BMI documented ABOVE normal parameters - f/u documented Measure #131: Pain Assessment & Follow-up: Pain positive & plan documented, Follow-up scheduled Measure #431: Unhealthy Alcohol Use Preventative Care & Scrn: Patient not identified as an unhealthy alcohol user PQRS Narrative: Smoking Status Never smoker Do You Want the Pneumonia Vaccine Up to Date Vaccine AT THIS TIME? Narcotic Agreement Date Signed 09/11/17 Blood Pressure 145/79 Pain Intensity [Right Buttock] 4 Scale Used Numeric (1 - 10) Hx Alcohol Use (MH) Yes: social Home Medications: Ambulatory Orders Estrogens, Conjugated [Premarin] 0.3 mg PO DAILY 09/06/17 Loratadine [Claritin] 10 mg PO DAILY PRN 09/06/17 Aspirin 325 mg PO DAILY 09/12/17 Calcium Carbonate [Calcium] 600 mg PO DAILY 09/12/17 Fluticasone Nasal [place] [Flonase Nasal [place]] 1 spray EA NOSTRIL DAILY PRN 09/12 Levothyroxine Sodium [Synthroid] 75 mcg PO DAILY 09/12/17 HYDROcodone/APAP 5-325MG [[place] 5-325] 1 tab PO BID #60 tab 12/25/17 Controlled Substance Measures - Controlled Substance Measures Is patient prescribed a controlled substance at discharge?: Yes When asked, does pt state using other controlled substances?: No If prescribed controlled substance>3 days was MAPS reviewed?: Yes If Rx opioid, was Start Talking consent form obtained?: Yes If opioid is for acute pain is fill amount 7 days or less?: No Was information provided regarding opioid addiction?: Yes
== END | disposition home or self-care (01) ==
LOC: PNWHC3 13:42
PROVIDERS: ATTEND Specialist
DX: G89.29 Other chronic pain (principal); M54.5 Low back pain; M96.1 Postlaminectomy syndrome, not elsewhere classified; M46.1 Sacroiliitis, not elsewhere classified; F11.90 Opioid use, unspecified, uncomplicated; Z98.890 Other specified postprocedural states; Z79.1 Long term (current) use of non-steroidal anti-inflammatories (NSAID); Z79.82 Long term (current) use of aspirin
CPT/HCPCS: 99211

== ENCOUNTER → 2018-03-06 | Day surgery (SDC) | payer MEDICARE, BC ==
[2018-03-06 09:23] VITALS: TEMP 98.1
--- NOTE | 2018-03-06 09:48 | P.PCN ---
Date of Procedure: 03/06/18 Procedure(s) Performed: Procedure= Right sacral iliac joints steroid injection under fluoroscopy guidance Preoperative diagnosis= 1- Right sacroiliitis 2-lumbar facet arthropathy Postoperative diagnosis= same as preop diagnosis Complication = none Condition= stable . Anesthesia= moderate sedation with intravenous Versed 2 mg , and fentanyl 50 micrograms and local infiltration with lidocaine 1% 3 mL Indication for the procedure= patient complaining of low back pain , examination was positive for severe tenderness over the right sacroiliac joints , patient diagnosed with sacroiliitis, for this reason , she was good candidate for sacroiliac joint steroid injection. Description of the procedure= procedure risk and benefits discussed with the patient, including but not limited, risk of infection and bleeding, and ALLERGIC reaction to the medication and not complete pain relief and patient agreed with the preceding patient taken to the operating room, placed in prone position or standard monitors applied to the patient then after induction of anesthesia back prepped with chlorhexidine 3 times , Then under strict sterile technique, the right sacroiliac joint the which was identified under fluoroscopy guidance been local infiltration of the skin and subcu interstitial with lidocaine 1% then 25-gauge [place] Needle advanced slowly under fluoroscopy and placed in the right sacroiliac joint needle placement confirmed with AP and oblique and lateral view and after appropriate needle placement confirmed and after negative aspiration, or heme , then Ropivacaine 0.5% 4 mL, and 40 mg of Kenalog mixed together and injected in the right sacroiliac joint after negative aspiration patient tolerated the procedure well without any complication.
[2018-03-06 10:00] VITALS: RESP 18
--- NOTE | 2018-03-06 10:10 | FL ---
Fluoroscopy INDICATION: Pain FINDINGS: Fluoroscopy time: 2 seconds. Images obtained: 1. IMPRESSIONS: 1. Documentation of fluoroscopy.
[2018-03-06 10:35] VITALS: BP 163/80; PULSE 68
== END ==
LOC: ORPAIN 09:07
PROVIDERS: ATTEND Specialist
DX: G89.29 Other chronic pain (principal); M96.1 Postlaminectomy syndrome, not elsewhere classified; M46.1 Sacroiliitis, not elsewhere classified; Z79.891 Long term (current) use of opiate analgesic; Z79.82 Long term (current) use of aspirin; Z79.890 Hormone replacement therapy; Z79.899 Other long term (current) drug therapy; Z88.2 Allergy status to sulfonamides; Z91.048 Other nonmedicinal substance allergy status
CPT/HCPCS: J2250; J3301; J3010; G0260; 27096; 99152

== ENCOUNTER → 2018-03-26 | Day surgery (SDC) | payer MEDICARE, BC ==
[2018-03-19 09:13] VITALS: BMI 34.3
[~2018-03-26] MED LIST changes: -LACTATED RINGERS 1,000 ML IV SCH; +SODIUM CHLORIDE 0.9% 500 ML 500 ML IV ONE; +SODIUM CHLORIDE 0.9% 500 ML 500 ML IV SCH
[2018-03-26 07:21] VITALS: TEMP 98.1
--- NOTE | 2018-03-26 07:49 | P.PCN ---
Date of Procedure: 03/26/18 Procedure(s) Performed: Procedure= Right sacral iliac joints steroid injection under fluoroscopy guidance Preoperative diagnosis= 1-sacroiliitis 2-Failed Back surgery syndrome lumbar area 3-lumbar facet arthropathy Postoperative diagnosis=1-sacroiliitis 2-failed back surgery syndrome and lumbar area 3-lumbar facet arthropathy Complication = none Condition= stable Anesthesia= moderate sedation with intravenous Versed 2 mg , and fentanyl 100 micrograms . Indication for the procedure= patient complaining of low back pain , examination was positive for severe tenderness over the sacroiliac joints bilaterally and patient diagnosed with sacroiliitis, for this reason he/ she was good candidate for sacroiliac joint steroid injection. Description of the procedure= procedure risk and benefits discussed with the patient, including but not limited, risk of infection and bleeding, and ALLERGIC reaction to the medication and not complete pain relief and patient agreed with the preceding patient taken to the operating room, placed in prone position or standard monitors applied to the patient then after induction of anesthesia back prepped with chlorhexidine 3 times , Then under strict sterile technique, first I did the right sacroiliac joint the which was identified under fluoroscopy guidance been local infiltration of the skin and subcu interstitial with lidocaine 1% then 22-gauge [place] Needle advanced slowly under fluoroscopy and placed in the right sacroiliac joint needle placement confirmed with AP and oblique and lateral view and after appropriate needle placement confirmed and after negative aspiration, or heme , then Ropivacaine 0.5% 3 mL, and 40 mg of Depo-Medrol mixed together and injected in the right sacroiliac joint after negative aspiration patient tolerated the procedure well without any complication.,and she will follow up in clinic 3 weeks
[2018-03-26 07:55] VITALS: RESP 18
[2018-03-26 08:11] VITALS: BP 151/82; PULSE 66
--- NOTE | 2018-03-26 08:26 | FL ---
EXAMINATION TYPE: FL guided pain mgmt statistic DATE OF EXAM: 03/26/2018 COMPARISON: NONE HISTORY: Back pain and sacroiliac joint pain TECHNIQUE: Fluoroscopy. FINDINGS/ IMPRESSION: Fluoroscopic guidance was provided during procedure performed by Dr. Martinez. A total of 3 seconds of fluoroscopic time was utilized during the procedure and 1 spot images was acquired de monstrating localization of the sacroiliac joint.
== END | disposition home or self-care (01) ==
LOC: ORPAIN 06:27
PROVIDERS: ATTEND Specialist
DX: M46.1 Sacroiliitis, not elsewhere classified (principal); M96.1 Postlaminectomy syndrome, not elsewhere classified; Z88.2 Allergy status to sulfonamides; Z91.048 Other nonmedicinal substance allergy status
CPT/HCPCS: J2250; J1030; J3010; G0260; 27096

== ENCOUNTER → 2018-04-16 | Outpatient (CLI) | payer MEDICARE, BC ==
--- NOTE | 2018-04-16 15:42 | P.PN ---
Subjective Progress Note Date: 04/16/18 This is follow-up visit for this patient with a history of severe and chronic low back pain secondary to lumbar postlaminectomy pain syndrome, Bilateral sacroiliitis, We have done an interventional pain procedure radiofrequency ablation of the left sacroiliac joint steroid injection,she reported that her pain in the low back area on the left side improved significantly, later on she was complaining of severe low back pain on the right side, and right side sacroiliac joint steroid injection, pain on the right side improved significantly RVS before the block was 7-8/10 dropped to 0 after the block on 2 different occasions, she reported that her pain still under control since within the last right sacroiliac joint steroid injection a totalThe patient currently on [place] 5/325 twice a day and Motrin 600 mg when necessary Patient denies any side effect of the medication , patient denies any excessive drowsiness or sleepiness, patient denies any suicidal ideation, Patient reported that the current medication is helping to control the pain and improve the activity of daily livings, Patient denies any motor or sensory deficit, denies any change in the bowel movement or urination, patient denies any fever or night sweats. Patient here today for follow-up visit and medication refill Physical Examinations : 1-[place]stitutiona : Cooperative , not in acute distress . 2-HEENT : nech ; supple , no Lymphadenopathy , normal thyroid size . eyes : no ptosis , no icterus , no photophobia . ENT : normal of hearing , normal oropharynx , no Thrush . 3- Respiratory : Chest clear to auscultations Bilaterally , no wheezing , no Rhonchi . 4- Cardiovascular : regular rate and rhythem , S1 , S2 , no S3 , no S4. 5- Gastrointestinal : abdomen soft no tenderness , bowel sounds , no organomegally . 6- Genitourinary : Defferred . 7- neurologic : Cranial nerve II to XII intact , no focal neurological deffecit . 8-psychatric : alert , oriented X 3 , appropriate affect , intact judgment and insight . 9-Lymphatic : no Lymphadenopathy . 10- musculoskeltal : Lumber spine moter stegnth lower extremities ,thigh and legs 5/5 Right side , 5/5 Left side deep tendon reflexes : normal Knee Jerk , normal ankle Jerk positive lumber facet Loading Test Sever tenderness over the Sacroiliac joint on the Right sides , mild tenderness on the left side Straight leg raising test negative bilaterally. Wagner test negative bilaterally Assessment and plan= chronic low back pain secondary to lumbar failed back surgery syndrome, bilateral sacroiliitis, she had good result after the radiofrequency ablation of left sacroiliac joint, Patient currently having clinical finding of right sacroiliitis ,pain improved after the right-sided sacroiliac joint steroid injection chronic and current use of high-risk medication (opioids) Patient denies any side effects of the current pain medication and the current treatment/medication helping the patient to do activity of daily living , Diagnoses, prognosis, treatment options, including but not limited to physical therapy, medication management, interventional therapies, and surgery, were discussed with the patient All the questions answered The narcotic consent was signed and patient agreed and understood the side effects and complications of opioid treatment. Patient signed the narcotic agreement, and was orally counseled, not to overuse, not to abuse, not to Divert , not tp sell pain medication, and to take it as prescribed only, Patient was counseled not to drive or operate heavy equipment while using narcotic medication, and advised not to use alcohol or any Illicit drugs while using the narcotis, understanding that lack of compliance with any of the above instructions, will likely to cause discharge from, the pain service, not to renew his narcotic prescriptions Medication managements= patient will be given prescription refills for [place] 5/325 every 12 hours dispense 60 with 1 refill, Interventions= patient will be good candidate to have radiofrequency ablation right side sacroiliac joint but because patient reported that her pain improved significantly After the injection we will not schedule her for now, in the future if she had pain,she will be scheduled to have RFA on the right sacroiliac joint Patient will follow up in the pain clinic in 2 months for medication refill , Objective - Vital Signs Vital signs: Intake & Output 04/15/18 04/16/18 04/16/18 18:59 06:59 18:59 Weight 90.718 kg
== END ==
LOC: PNWHC3 14:16
PROVIDERS: ATTEND Specialist
DX: G89.29 Other chronic pain (principal); M46.1 Sacroiliitis, not elsewhere classified; M96.1 Postlaminectomy syndrome, not elsewhere classified; Z79.891 Long term (current) use of opiate analgesic; Z79.899 Other long term (current) drug therapy
CPT/HCPCS: 99211

== ENCOUNTER → 2018-05-02 | Outpatient (CLI) | payer MEDICARE, BC ==
--- NOTE | 2018-05-02 18:56 | US ---
EXAMINATION TYPE: US venous doppler duplex LE BI DATE OF EXAM: 05/02/2018 6:44 PM COMPARISON: NONE CLINICAL HISTORY: R60.9 Edema. Bilateral leg edema. SIDE PERFORMED: Bilateral TECHNIQUE: The lower extremity deep venous system is examined utilizing real time linear array sonog serjio with graded compression, doppler sonography and color-flow sonography. VESSELS IMAGED: External Iliac Vein (EIV) Common Femoral Vein Deep Femoral Vein Greater Saphenous Vein * Femoral Vein Popliteal Vein Small Saphenous Vein * Proximal Calf Veins (* superficial vessels) Right Leg: Negative for DVT Left Leg: Negative for DVT No evidence of DVT bilateral legs. IMPRESSION: Normal bilateral leg duplex venous sonogram.
== END | disposition home or self-care (01) ==
LOC: RADUSMAIN 18:05
PROVIDERS: ATTEND Internal Medicine
DX: R60.9 Edema, unspecified (principal)
CPT/HCPCS: 93970

== ENCOUNTER → 2018-05-14 | Outpatient (CLI) | payer MEDICARE, BC ==
--- NOTE | 2018-05-15 06:07 | XR ---
EXAMINATION TYPE: XR tibia fibula LT DATE OF EXAM: 05/14/2018 CLINICAL HISTORY: Distal pain and swelling. TECHNIQUE: Two views of the left leg are obtained. COMPARISON: None. FINDINGS: There is no acute fracture or dislocation seen in the left tibia or fibula. Metallic hardw are from left knee MARGOT-plasty is identified. Left ankle joint appears within normal limits. There is mild diffuse subcutaneous edema. A few scattered soft tissue phleboliths are noted. IMPRESSION: As above.
== END ==
LOC: RADXRMAIN 15:45
PROVIDERS: ATTEND Internal Medicine
DX: M79.605 Pain in left leg (principal)

== ENCOUNTER → 2018-06-26 | Outpatient (CLI) | payer MEDICARE, BC ==
[2018-06-26 12:28] VITALS: BP 169/92; PULSE 76; RESP 20
--- NOTE | 2018-06-27 19:37 | P.PN ---
Subjective Progress Note Date: 06/26/18 This is follow-up visit for this patient with a history of severe and chronic low back pain secondary to lumbar postlaminectomy pain syndrome, Bilateral sacroiliitis, We have done an interventional pain procedure radiofrequency ablation of the left sacroiliac joint , and also later on we did right-sided sacroiliac joint steroid injection x2 Patient currently complaining of severe localized pain in the left buttock area , pain is not radiated to the lower extremity , she continued to use [place] 5/ 325 when necessary Patient denies any side effect of the medication , patient denies any excessive drowsiness or sleepiness, patient denies any suicidal ideation, Patient reported that the current medication is helping to control the pain and improve the activity of daily livings, Patient denies any motor or sensory deficit, denies any change in the bowel movement or urination, patient denies any fever or night sweats. Physical Examinations : -[place]stitutiona : Cooperative , not in acute distress . -HEENT : nech ; supple , no Lymphadenopathy , normal thyroid size . eyes : no ptosis , no icterus , no photophobia . - musculoskeltal : Lumber spine moter stegnth lower extremities ,thigh and legs 5/5 Right side , 5/5 Left side deep tendon reflexes : normal Knee Jerk , normal ankle Jerk lumber facet Loading Test, negative bilaterally Sever tenderness in the left buttock area, localized, at the location of the gluteus minor muscle Straight leg raising test negative bilaterally. Wagner test negative bilaterally Assessment and plan= chronic low back pain secondary to lumbar failed back surgery syndrome, bilateral sacroiliitis, THE patient having localized pain, and the location of the gluteus minor muscle ( left ) Patient could benefit from lidocaine 5% ointment to be applied to the left area , and then also patient could benefit from massage therapy to the left buttock area, In the future patient could be referred for physical therapy evaluation and treatment if she continued to have severe left buttock pain chronic and current use of high-risk medication (opioids) Patient denies any side effects of the current pain medication and the current treatment/medication helping the patient to do activity of daily living , Diagnoses, prognosis, treatment options, including but not limited to physical therapy, medication management, interventional therapies, and surgery, were discussed with the patient All the questions answered The narcotic consent was signed and patient agreed and understood the side effects and complications of opioid treatment. Patient signed the narcotic agreement, and was orally counseled, not to overuse, not to abuse, not to Divert , not tp sell pain medication, and to take it as prescribed only, Patient was counseled not to drive or operate heavy equipment while using narcotic medication, and advised not to use alcohol or any Illicit drugs while using the narcotis, understanding that lack of compliance with any of the above instructions, will likely to cause discharge from, the pain service, not to renew his narcotic prescriptions Medication managements= patient will be given prescription refills for [place] 5/325 every 12 hours dispense 60 with 1 refill, , Objective - Vital Signs Vital signs: Vital Signs Temp Pulse 76 06/26/18 12:22 Resp 20 06/26/18 12:22 BP 169/92 06/26/18 12:22 Pulse Ox
== END ==
LOC: PNWHC3 12:08
PROVIDERS: ATTEND Specialist
DX: G89.29 Other chronic pain (principal); M96.1 Postlaminectomy syndrome, not elsewhere classified; M46.1 Sacroiliitis, not elsewhere classified; Z79.891 Long term (current) use of opiate analgesic
CPT/HCPCS: 99211

== ENCOUNTER → 2018-08-21 | Outpatient (CLI) | payer MEDICARE, BC ==
[2018-08-21 14:00] VITALS: BP 136/75; PULSE 85; RESP 16
--- NOTE | 2018-08-21 19:10 | P.PAINPG ---
Subjective Progress Note Date: 08/21/18 This is follow-up visit for this patient with a history of severe and chronic low back pain secondary to lumbar postlaminectomy pain syndrome, Bilateral sacroiliitis, We have done an interventional pain procedure radiofrequency ablation of the left sacroiliac joint steroid injection, currently she is complaining of increasing low back pain mainly on the right side, previously we have done right-sided sacroiliac joint steroid injection which helped her low back pain on the right side significantly a totalThe patient currently on [place] 5/325 twice a day and Motrin 600 mg when necessary Patient denies any side effect of the medication , patient denies any excessive drowsiness or sleepiness, patient denies any suicidal ideation, Patient reported that the current medication is helping to control the pain and improve the activity of daily livings, Patient denies any motor or sensory deficit, denies any change in the bowel movement or urination, patient denies any fever or night sweats. Patient here today for follow-up visit and medication refill Physical Examinations : -Constitutiona : Cooperative , not in acute distress . -HEENT : nech ; supple , no Lymphadenopathy , normal thyroid size . eyes : no ptosis , no icterus, no photophobia .. - musculoskeltal : Lumber spine moter stegnth lower extremities ,thigh and legs 5/5 Right side , 5/5 Left side deep tendon reflexes : normal Knee Jerk , normal ankle Jerk positive lumber facet Loading Test Range of motion of the lumbar spine Flexion 30 degrees, extension 10 degrees strait leg raising test negative bilaterally Fabere test negative bilaterally Sever tenderness over the Sacroiliac joint on the Right sides , mild tenderness on the left side [place] test positive bilaterally. Seated flexion test positive bilaterally. Assessment and plan= chronic low back pain secondary to lumbar failed back surgery syndrome, bilateral sacroiliitis, she had good result after the radiofrequency ablation of left sacroiliac joint, Patient currently having clinical finding of right sacroiliitis , patient had good pain relief after right sacroiliac steroid injections 2 chronic and current use of high-risk medication (opioids) Patient denies any side effects of the current pain medication and the current treatment/medication helping the patient to do activity of daily living , Diagnoses, prognosis, treatment options, including but not limited to physical therapy, medication management, interventional therapies, and surgery, were discussed with the patient All the questions answered The narcotic consent was signed and patient agreed and understood the side effects and complications of opioid treatment. Patient signed the narcotic agreement, and was orally counseled, not to overuse, not to abuse, not to Divert , not tp sell pain medication, and to take it as prescribed only, Patient was counseled not to drive or operate heavy equipment while using narcotic medication, and advised not to use alcohol or any Illicit drugs while using the narcotis, understanding that lack of compliance with any of the above instructions, will likely to cause discharge from, the pain service, not to renew his narcotic prescriptions Medication managements= patient will be given prescription refills for [place] 5/325 every 12 hours dispense 60 with 1 refill, MAPS reviewed and it was appropriate Interventions= patient will be good candidate to have radiofrequency ablation right side sacroiliac joint (RFA of L5 and S1 dorsal drowsiness and RFA Lateral branches S1 ,S2 ,S3 Patient will follow up in the pain clinic in 2 months for medication refill . , Objective - Vital Signs Vital signs: Vital Signs Temp Pulse 85 08/21/18 13:50 Resp 16 08/21/18 13:50 BP 136/75 08/21/18 13:50 Pulse Ox 98 08/21/18 13:50 Intake & Output 08/21/18 08/21/18 08/22/18 06:59 18:59 06:59 Weight 88.451 kg PQRS Measure Charge Sheet Measure #130: Documentation of Current Meds in Medical Chart: Patient's medications documented in chart Measure #226: Tobacco Use: Screen & Cessation Intervention: Pt not a tobacco user Measure #111: Pneumonia Vaccination: Pneumococcal vaccine NOT administered or previously given Measure #47: Advance Care Plan: Advance care planning discussed & documented, pt chose/unable to give Measure #412: Opioid Treatment Agreement: Documented signed opioid trtmnt agreemnt min once during opioid trtmnt Measure #408: Opioid Therapy Follow-up Evaluation: Patient had f/u eval minimum every 3 months during opioid therapy Measure #317: Preventitive Care & Scrn High Bld Press & F/U: Normal blood pressure, f/u not required Measure #128: Body Mass Index (BMI) Screening & Follow-up: BMI documented ABOVE normal parameters - f/u documented Measure #131: Pain Assessment & Follow-up: Pain positive & plan documented, Follow-up scheduled Measure #431: Unhealthy Alcohol Use Preventative Care & Scrn: Patient not identified as an unhealthy alcohol user PQRS Narrative: Smoking Status Never smoker Do You Want the Pneumonia Vaccine Up to Date Vaccine AT THIS TIME? Narcotic Agreement Date Signed 09/11/17 Blood Pressure 136/75 Pain Intensity [Bilateral 7 Lower Back] Scale Used Numeric (1 - 10) Hx Alcohol Use (MH) Yes: social Home Medications: Ambulatory Orders Loratadine [Claritin] 10 mg PO DAILY PRN 09/06/17 Aspirin 325 mg PO DAILY 09/12/17 Calcium Carbonate [Calcium] 600 mg PO DAILY 09/12/17 Fluticasone Nasal [place] [Flonase Nasal [place]] 1 spray EA NOSTRIL DAILY PRN 09/12/17 Levothyroxine Sodium [Synthroid] 75 mcg PO DAILY 09/12/17 HYDROcodone/APAP 5-325MG [[place] 5-325] 1 tab PO BID #60 tab 12/25/17 Atorvastatin [Lipitor] 20 mg PO DAILY 06/26/18 Ibuprofen [Advil] 3 tab PO TID PRN 08/21/18 Controlled Substance Measures - Controlled Substance Measures Is patient prescribed a controlled substance at discharge?: Yes When asked, does pt state using other controlled substances?: No If prescribed controlled substance>3 days was MAPS reviewed?: Yes If Rx opioid, was Start Talking consent form obtained?: Yes If opioid is for acute pain is fill amount 7 days or less?: No Was information provided regarding opioid addiction?: Yes
== END | disposition home or self-care (01) ==
LOC: PNWHC3 13:09
PROVIDERS: ATTEND Specialist
DX: G89.29 Other chronic pain (principal); M96.1 Postlaminectomy syndrome, not elsewhere classified; M46.1 Sacroiliitis, not elsewhere classified; F11.90 Opioid use, unspecified, uncomplicated; Z98.890 Other specified postprocedural states; Z79.1 Long term (current) use of non-steroidal anti-inflammatories (NSAID); Z79.82 Long term (current) use of aspirin
CPT/HCPCS: 99211

== ENCOUNTER 2018-09-03 09:29 | Day surgery (SDC) | payer MEDICARE, BC ==
[2018-08-29 16:13] VITALS: BMI 33.5
[~2018-09-03 09:29] MED LIST changes: +LACTATED RINGERS 1,000 ML IV SCH; -SODIUM CHLORIDE 0.9% 500 ML 500 ML IV ONE; -SODIUM CHLORIDE 0.9% 500 ML 500 ML IV SCH
[2018-09-03 10:17] VITALS: TEMP 99
[2018-09-03] MEDS ORDERED: LIDOCAINE 1% 20 ML VIAL (10MG/ML) FOR IV START INTRADERMA ONE (10:23)
[2018-09-03] MEDS ORDERED: LACTATED RINGERS 1,000 ML IV ONE (11:31)
[2018-09-03 11:35] VITALS: BP 181/89; PULSE 80; RESP 18
--- NOTE | 2018-09-03 11:45 | FL ---
EXAMINATION TYPE: FL guided pain mgmt statistic DATE OF EXAM: 09/03/2018 HISTORY: Pain 24sec fluoro time,4 images scanned
--- NOTE | 2018-09-03 12:00 | P.PCN ---
Date of Procedure: 09/03/18 Procedure(s) Performed: PREOPERATIVE DIAGNOSIS: 1-Lumbosacral spondylosis with facet arthropathy without myelopathy. 2- Bilateral sacroiliit. 3-failed back surgery syndrome lumbar post operative Diagnosis: . 1-Lumbosacral spondylosis with facet arthropathy without myelopathy. 2-Bilateral sacroiliit. 3-failed back surgery syndrome lumbar PROCEDURES: . 1- Right multi-site radiofrequency thermocoagulation/ablation of the S1, S2, and S3 lateral branchs. The procedure was performed using fluoroscopic guidance during needle placement to assure proper position and maximize safety . ANESTHESIA: LOCAL ANESTHESIA = moderate sedation with intravenous versed 2 mg and Fentanyle 150 mcg EBL: NONE INDICATION/MEDICAL NECESSITY: History of low back pain secondary to bilateral sacroiliitis and lumbosacral arthropathy unresponsive to more conservative treatments. The patient reported more than 50% relief of pain symptoms following 2 previous diagnostic blocks with Bupivacaine. PROCEDURE DESCRIPTION: The patient was seen and identified in the preoperative area. Risks, benefits, complications, and alternatives were discussed with the patient. The patient agreed to proceed with the procedure and signed the consent. Vital signs were checked before and after the procedure and they remained stable. Patient ambulated to the procedure room and time out was completed. The patient was placed in the prone position on the procedure table and a pillow was placed under the abdomen to reduce lumbar lordosis. The lumbosacral area was prepped and draped in the usual sterile fashion. Critical pause was taken. L5 Dorsal Ramus RF: I was not able to do it, because patient had a lot of hardware, and the location of the hardware was at the location of the L5 dorsal ramus, S1, S3, and S3 Lateral Branch RF: The lateral margins of the Right S1, S2, and S3 foramina were identified using AP fluoroscopy. Under fluoroscopic guidance, three 10-cm 20 -gauge radiofrequency cannula with a 10-mm active tip were inserted at 8-10 mm peripheral to the posterior S1 foramen, at various locations using clock-face coordinates. The center of the clock was registered at the lateral margin of the foramen. The 2:30, 4:00, and 5:30 o clock positions were used. At this level, the sensory testing of the S1 lateral branch was performed at 50 Hz and 0 to 1 volt at the three levels with production of concordant pain starting at 0.5 volt. Motor stimulation was done at 2.5 Hz. there was radicular symptoms and paresthesias were produced during the testing for the S1 and S2 and S3, for this reason , I changed the location of the needle to the medial aspect of the right sacroiliac joint, total of 6 needle was placed at the medial aspect of the right sacroiliac joint starting from the inferior border of the joint going superiorly, then we did the motor stimulation which was negative for any contractions in the right lower extremity, and we did the sensory testing which was positive for paresthesia at 0.5 volts , then after that thermocoagulation done at 80C for 90 seconds, the thermocoagulation done through all 6 needles, and before the needles removed ropivacaine 0.5% 6 a N mixed with 40 mg of Kenalog and 1 mL injected through each needle after negative aspiration . . COMPLICATIONS: The patient tolerated the procedure well without any acute complications. DISPOSTION/PLAN: The patient ambulated to the recovery area after the procedure in a stable condition for observation. Patient was reexamined prior to discharge. Patient was observed for 30 minutes in the recovery area and was discharged home, accompanied by an adult, after meeting discharged criteria. Discharge instructions were give to the patient by the staff. Patient was specifically instructed not to drive today and to rest for the rest of the day. The patient will schedule a follow up visit in the clinic in weeks or earlier if needed.
== END 2018-09-03 12:01 | disposition home or self-care (01) ==
LOC: ORPAIN 09:29
PROVIDERS: ATTEND Specialist
DX: M47.817 Spondylosis without myelopathy or radiculopathy, lumbosacral region (principal); M96.1 Postlaminectomy syndrome, not elsewhere classified; E03.9 Hypothyroidism, unspecified; M46.1 Sacroiliitis, not elsewhere classified; Z88.2 Allergy status to sulfonamides; Z91.048 Other nonmedicinal substance allergy status
CPT/HCPCS: 64640 ×3; J2250; J1030; J3010; 64635; 64636; 99152; 99153

== ENCOUNTER → 2018-10-05 | Outpatient (CLI) | payer MEDICARE, BC ==
--- NOTE | 2018-10-05 12:00 | BD ---
EXAMINATION TYPE: Axial Bone Density DATE OF EXAM: 10/05/2018 COMPARISON: 08.15.2016 CLINICAL HISTORY: 68 YR OLD FEMALE....ICD-10 CODE: M81.0 AGE RELATED OSTEOPOROSIS Height: 62 Weight: 194 FRAX RISK QUESTIONS: Glucocorticoids (More than 3mos): YES, INJECTIONS (Ex: prednisone, prednisolone, methylprednisolone, dexamethasone, and hydrocortisone). RISK FACTORS HISTORY OF: HX OF CLAVICLE FX A CHILD Surgery to Spine RODDING AND FUSION L2-S1 IN 2012 Postmenopausal woman: YES HYST AT AGE 45...HORMONES FOR 15 YRS, NONE NOW Lost more than 2 inches in height since high school: YES MEDICATIONS: Prednisone or other steroids: STEROIDAL BACK INJECTIONS FROM PAIN CLINIC ON REG. BASIS Thyroid Medications: GEN. SYNTHROID, 10 YRS Additional Medications: CALCIUM WITH D, ZANTAC PRN, STATIN FOR CHOLESTEROL, IBUPROFEN, PAIN MEDS Additional History: ARTHRITIS, BILAT KNEE REPLACEMENTS, EXAM MEASUREMENTS: Bone mineral densitometry was performed using the [email or web address] System. SPINE NOT SCANNED.....JENNIE AND FUSION LUMBAR SPINE Bone mineral density about the R hip (g/cm2): 1.254 Bone mineral density about the L hip (g/cm2): 1.214 T Score values are as follows: -----R Neck: 1.7 -----L Neck: 1.5 -----R Total: 2.0 -----L Total: 1.6 Bone mineral density has: Increased 3.5% since study of: 08.15.2016 FRAX%s: THERE IS A 7.8% CHANCE FOR A MAJOR OSTEOPOROTIC FX AND 0.2% FOR HIP....PROBABILITY FOR FX IN 10 YRS TIME Bone mineral density about the L Wrist (g/cm2): 0.627 T Score values are as follows: -----Dist. R+U: 2.2 -----Prox. R+U: 0.4 -----Radius total: 0.0 Bone mineral density FIRST WRIST SCAN FOR PATIENT.....BASELINE STUDY IMPRESSION: Normal (Values between +1 and -1 indicate normal bone mass). Consider repeating this study in 5 year s or sooner if there is some new clinical indication. NOTE: T-SCORE=SD OF THE YOUNG ADULT MEAN.
--- NOTE | 2018-10-08 09:35 | MM ---
Reason for exam: screening (asymptomatic). Last mammogram was performed 1 year and 2 months ago. History: Patient is postmenopausal. Family history of premenopausal breast cancer in sister at age 53. Excisional biopsy of the left breast, 1986. Taking estrogen for 15 years beginning at age 48. Physical Findings: A clinical breast exam by your physician is recommended on an annual basis and results should be correlated with mammographic findings. MG 3D Screening Mammo W/Cad Bilateral CC and MLO view(s) were taken. Prior study comparison: July 27, 2017, bilateral MG 3d screening mammo w/cad. June 24, 2016, bilateral MG screening mammo w CAD. There are scattered fibroglandular densities. No suspicious abnormality. No significant changes when compared with prior studies. ASSESSMENT: Negative, BI-RAD 1 RECOMMENDATION: Routine screening mammogram of both breasts in 1 year.
== END | disposition home or self-care (01) ==
LOC: RADMAMWWP 10:29
PROVIDERS: ATTEND Internal Medicine
DX: Z12.31 Encounter for screening mammogram for malignant neoplasm of breast (principal); M81.0 Age-related osteoporosis without current pathological fracture
CPT/HCPCS: 77063; 77067; 77080

== ENCOUNTER → 2018-10-16 | Outpatient (CLI) | payer MEDICARE, BC ==
[2018-10-16 14:12] VITALS: BP 158/80; PULSE 95; RESP 18
--- NOTE | 2018-10-16 14:45 | P.PAINPG ---
Subjective Progress Note Date: 10/16/18 This is follow-up visit for this 68 years old female with a history of severe and chronic low back pain secondary to lumbar postlaminectomy pain syndrome, Bilateral sacroiliitis, recently We have done an interventional pain procedure radiofrequency ablation of the Right sacroiliac joint steroid injection, currently she is complaining of severe left hip pain, and the pain increases with any hip movement a totalThe patient currently on [place] 5/325 twice a day and Motrin 600 mg when necessary Patient denies any side effect of the medication , patient denies any excessive drowsiness or sleepiness, patient denies any suicidal ideation, Patient reported that the current medication is helping to control the pain and improve the activity of daily livings, Patient denies any motor or sensory deficit, denies any change in the bowel movement or urination, patient denies any fever or night sweats. Patient here today for follow-up visit and medication refill Physical Examinations : -Constitutiona : Cooperative , not in acute distress . -HEENT : nech ; supple , no Lymphadenopathy , normal thyroid size . eyes : no ptosis , no icterus, no photophobia .. - musculoskeltal : Lumber spine moter stegnth lower extremities ,thigh and legs 5/5 Right side , 5/5 Left side deep tendon reflexes : normal Knee Jerk , normal ankle Jerk positive lumber facet Loading Test Range of motion of the lumbar spine Flexion 30 degrees, extension 10 degrees strait leg raising test negative bilaterally Fabere test negative bilaterally mild tenderness over the Sacroiliac joint on the Right sides , mild tenderness on the left side Abduction and abduction and lateral rotation of the left hip associated with severe pain Assessment and plan= chronic low back pain secondary to lumbar failed back surgery syndrome, bilateral sacroiliitis, Patient currently having symptoms of of left hip osteoarthritis, patient already scheduled appointment to see orthopedic surgeon Dr. Perez for evaluation chronic and current use of high-risk medication (opioids) Patient denies any side effects of the current pain medication and the current treatment/medication helping the patient to do activity of daily living , Diagnoses, prognosis, treatment options, including but not limited to physical therapy, medication management, interventional therapies, and surgery, were discussed with the patient All the questions answered The narcotic consent was signed and patient agreed and understood the side effects and complications of opioid treatment. Patient signed the narcotic agreement, and was orally counseled, not to overuse, not to abuse, not to Divert , not tp sell pain medication, and to take it as prescribed only, Patient was counseled not to drive or operate heavy equipment while using narcotic medication, and advised not to use alcohol or any Illicit drugs while using the narcotis, understanding that lack of compliance with any of the above instructions, will likely to cause discharge from, the pain service, not to renew his narcotic prescriptions Medication managements= patient will be given prescription refills for [place] 5/325 every 12 hours dispense 60 with 1 refill, MAPS reviewed and it was appropriate Interventions= none , Objective - Vital Signs Vital signs: Vital Signs Temp Pulse 95 10/16/18 14:07 Resp 18 10/16/18 14:07 BP 158/80 10/16/18 14:07 Pulse Ox 97 10/16/18 14:07 Intake & Output 10/15/18 10/16/18 10/16/18 18:59 06:59 18:59 Weight 88.451 kg PQRS Measure Charge Sheet Measure #130: Documentation of Current Meds in Medical Chart: Patient's medications documented in chart Measure #226: Tobacco Use: Screen & Cessation Intervention: Pt not a tobacco user Measure #111: Pneumonia Vaccination: Pneumococcal vaccine administered or previously received Measure #47: Advance Care Plan: Advance care planning discussed & documented, pt chose/unable to give Measure #412: Opioid Treatment Agreement: Documented signed opioid trtmnt agreemnt min once during opioid trtmnt Measure #408: Opioid Therapy Follow-up Evaluation: Patient had f/u eval minimum every 3 months during opioid therapy Measure #317: Preventitive Care & Scrn High Bld Press & F/U: Pre-hypertensive or hypertensive BP documented, pt will f/u with PCP Measure #128: Body Mass Index (BMI) Screening & Follow-up: BMI documented ABOVE normal parameters - f/u documented Measure #131: Pain Assessment & Follow-up: Pain positive & plan documented, Follow-up scheduled Measure #431: Unhealthy Alcohol Use Preventative Care & Scrn: Patient not identified as an unhealthy alcohol user PQRS Narrative: Smoking Status Never smoker Narcotic Agreement Date Signed 09/11/17 Blood Pressure 158/80 Pain Intensity [Left Hip] 4 Scale Used Numeric (1 - 10) Hx Alcohol Use (MH) Yes: social Home Medications: Ambulatory Orders Loratadine [Claritin] 10 mg PO DAILY PRN 09/06/17 Aspirin 325 mg PO DAILY 09/12/17 Calcium Carbonate [Calcium] 600 mg PO DAILY 09/12/17 Fluticasone Nasal [place] [Flonase Nasal [place]] 1 spray EA NOSTRIL DAILY PRN 09/12/17 Levothyroxine Sodium [Synthroid] 75 mcg PO DAILY 09/12/17 HYDROcodone/APAP 5-325MG [[place] 5-325] 1 tab PO BID #60 tab 12/25/17 Atorvastatin [Lipitor] 20 mg PO DAILY 06/26/18 Ibuprofen [Advil] 3 tab PO TID PRN 08/21/18 Controlled Substance Measures - Controlled Substance Measures Is patient prescribed a controlled substance at discharge?: Yes When asked, does pt state using other controlled substances?: No If prescribed controlled substance>3 days was MAPS reviewed?: Yes If Rx opioid, was Start Talking consent form obtained?: Yes If opioid is for acute pain is fill amount 7 days or less?: No Was information provided regarding opioid addiction?: Yes
== END | disposition home or self-care (01) ==
LOC: PNWHC3 13:44
PROVIDERS: ATTEND Specialist
DX: G89.29 Other chronic pain (principal); M96.1 Postlaminectomy syndrome, not elsewhere classified; M46.1 Sacroiliitis, not elsewhere classified; Z98.890 Other specified postprocedural states; Z79.891 Long term (current) use of opiate analgesic
CPT/HCPCS: 99211

== ENCOUNTER → 2018-11-30 | Outpatient (CLI) | payer MEDICARE, BC ==
[2018-11-30 13:12] LABS: Basophils # (A) 0.1 k/uL (0-0.2); Basophils % (A) 1 %; Eosinophils # (A) 0.6 k/uL (0-0.7); Eosinophils % (A) 7 %; HCT 42.4 % (34.0-46.0); HGB 13.5 gm/dL (11.4-16.0); Lymphocytes # (A) 2.7 k/uL (1.0-4.8); Lymphocytes % (A) 28 %; MCH 30.1 pg (25.0-35.0); MCHC 31.9 g/dL (31.0-37.0); MCV 94.5 fL (80.0-100.0); Mean Platelet Volume 6.7; Monocytes # (A) 0.6 k/uL (0-1.0); Monocytes % (A) 6 %; Neutrophils # (A) 5.4 k/uL (1.3-7.7); Neutrophils % (A) 56 %; Platelet Count 333 k/uL (150-450); RBC 4.48 m/uL (3.80-5.40); RDW 13.9 % (11.5-15.5); WBC 9.7 k/uL (3.8-10.6)
[2018-11-30 13:18] LABS: INR 0.9 (<1.2); Prothrombin Time 9.9 sec (9.0-12.0)
[2018-11-30 13:21] LABS: Potassium 3.9 mmol/L (3.5-5.1)
== END | disposition home or self-care (01) ==
LOC: LABPAT 12:28
PROVIDERS: ATTEND Orthopaedic Surgery
DX: R58 Hemorrhage, not elsewhere classified (principal); Z01.812 Encounter for preprocedural laboratory examination; M16.12 Unilateral primary osteoarthritis, left hip
CPT/HCPCS: 36415; 80051; 85025; 85610; 86850; 86900; 86901; 87070

== ENCOUNTER 2018-12-10 10:15 | Inpatient (IN) | payer MEDICARE, BC ==
[2018-12-03 14:22] VITALS: BMI 33.5
--- NOTE | 2018-12-09 10:03 | HP ---
HISTORY AND PHYSICAL SURGERY: 12/10/2018 Elba Haas is a 68-year-old patient seen with symptomatic left hip osteoarthritis. We discussed options for treatment. She elected to proceed with left total hip arthroplasty. Consent regarding the procedure was obtained. Medical clearance was provided by Dr. Yi. PAST MEDICAL HISTORY: Hypothyroidism. PAST SURGICAL HISTORY: Hysterectomy, total knee arthroplasty, cervical fusion. DAILY MEDICATIONS: Synthroid, ibuprofen, Lipitor, [place]. ALLERGIES: SULFA. SOCIAL HISTORY: She denies current tobacco use. PHYSICAL EXAMINATION: Evaluation of the left hip: There is limited range of motion with severe pain. Positive hip impingement sign. Straight leg raise is negative. Her distal neurovascular exam is intact. RADIOGRAPHS: Radiographs of the left hip reveal severe osteoarthritis. IMPRESSION: 1. Left hip osteoarthritis. 2. Hypothyroidism. PLAN: Direct anterior left total hip arthroplasty. MMODL / IJN: [id number] /
[~2018-12-10 10:15] MED LIST changes: +ACETAMINOPHEN TAB 500 MG TAB PO ONE; +DEXAMETHASONE SOD PHOSPHATE 10 MG/ML 1 ML VIAL IV ONE; +HYDROmorphone 0.5 MG/0.5 ML SYRINGE IVP PRN; -LACTATED RINGERS 1,000 ML IV SCH; +LIDOCAINE 1% 20 ML VIAL (10MG/ML) FOR IV START INTRADERMA PRN; +MELOXICAM 7.5 MG TAB PO ONE; +ONDANSETRON 4 MG/2 ML VIAL IVP PRN; +TRANEXAMIC ACID 1,000 MG in SODIUM CHLORIDE 0.9% 100 ML IVPB ONE; +VANCOMYCIN 1,250 MG in SODIUM CHLORIDE 0.9% 250 ML IVPB ONE
[2018-12-10] MEDS: LACTATED RINGERS 1,000 ML IV SCH ×2 (11:51→21:09)
[2018-12-10] MEDS ORDERED: MIDAZOLAM (PF) 2 MG/2 ML VIAL IVP ONE (11:58)
[2018-12-10] MEDS ORDERED: ROPIVACAINE 246.25 MG, EPINEPHrine 0.5 MG, KETOROLAC 30 MG, cloNIDine HCL/PF 80 MCG, WA... MISCELLANE ONE ×5 (12:51)
[2018-12-10] MEDS ORDERED: PROPOFOL 10 MG/ML 20 ML VIAL IV ONE (13:29)
[2018-12-10] MEDS ORDERED: TRANEXAMIC ACID 1,000 MG/10 ML VIAL ONE (13:29)
[2018-12-10] MEDS ORDERED: fentaNYL (PF) 50 MCG/ML 2 ML AMP ONE (13:29)
[2018-12-10] MEDS ORDERED: MIDAZOLAM 2 MG/2 ML VIAL ONE (13:29)
[2018-12-10] MEDS ORDERED: LIDOCAINE 1% INJ 10MG/ML (20 ML MDV) ONE (13:29)
[2018-12-10] MEDS ORDERED: ROCURONIUM BROMIDE 10 MG/ML 10 ML VIAL IV ONE (13:29)
[2018-12-10] MEDS ORDERED: GLYCOPYRROLATE 0.2 MG/ML 2 ML VIAL ONE (13:29)
[2018-12-10] MEDS ORDERED: SUCCINYLCHOLINE CHLORIDE 100 MG/5 ML SYR IV ONE (13:29)
[2018-12-10] MEDS ORDERED: SODIUM CHLORIDE 0.9% 100 ML BAG ONE (13:29)
[2018-12-10] MEDS ORDERED: HYDROmorphone (PF) 1 MG/ML ONE (13:29)
[2018-12-10] MEDS ORDERED: NEOSTIGMINE 1 MG/ML 10 ML VIAL ONE (13:29)
[2018-12-10] MEDS ORDERED: ceFAZolin 3,000 MG in SODIUM CHLORIDE 0.9% IRRIGATIO 3,000 ML IRRIGATION ONE (14:17)
[2018-12-10] MEDS ORDERED: ONDANSETRON 4 MG/2 ML VIAL IVP PRN (15:30)
[2018-12-10] MEDS ORDERED: HYDROcodone/APAP 5-325MG 1 EACH TAB PO PRN (15:30)
[2018-12-10] MEDS ORDERED: NALOXONE 0.4 MG/ML 1 ML VIAL IV PRN (15:30)
[2018-12-10] MEDS ORDERED: HYDROmorphone 0.5 MG/0.5 ML SYRINGE IVP PRN ×2 (15:30)
--- NOTE | 2018-12-10 15:30 | P.OP ---
Date of Procedure: 12/10/18 Preoperative Diagnosis: Left hip osteoarthritis Postoperative Diagnosis: Left hip osteoarthritis Procedure(s) Performed: Direct anterior left total hip arthroplasty Implants: 1. Depuy Corail KA size 11 press-fit femoral stem 2. Depuy pinnacle 54 mm press-fit multi hole acetabular shell 3. Depuy pinnacle polyethylene acetabular liner 54 mm OD 36 mm ID 4. Biolox delta ceramic femoral head +1.5 36 mm Anesthesia: BAILEYA, local Surgeon: Horacio Perez Poultry Sexer #1: Rafael Ga Estimated Blood Loss (ml): 300 Pathology: other (Femoral head) Condition: stable Disposition: PACU Indications for Procedure: 68-year-old patient seen with symptomatic left hip osteoarthritis. After having treatment options discussed, she elected to proceed with total hip arthroplasty. Operative Findings: See description of procedure Description of Procedure: The patient was taken to the operative suite. Patient underwent a general anesthetic by the department of anesthesia. Patient was then transferred to the [place] table. Patient was given preoperative IV antibiotics and TXA. Both lower extremities were placed in standard leg spars. The hip was then prepped and draped in the normal sterile orthopedic fashion. A standard anterior incision was made beginning 3 cm lateral and 1 cm distal to the ASIS extending 10 cm. Dissection was then carried down through the subcutaneous soft tissues down to the fascia overlying the tensor fascia eron. An incision was now made through the fascia. Careful dissection was taken down exposing the tensor fascia eron muscle. A Cobra retractor was now placed along the medial femoral neck and a second one along the lateral femoral neck. The venous circumflex vessels were now identified, cauterized and clipped. We identified the anterior hip capsule. An incision was made through the hip capsule along the lateral border. I performed a partial anterior capsulectomy. Retractors were now placed around the femoral neck itself. A femoral neck cut was now made with a sagittal saw. It was completed with an osteotome at the lateral neck area. The femoral head was now removed without difficulty. The extremity was now rotated to 45 of external rotation. It was locked in position. Residual labrum was now debrided out. Serial reaming was performed of the acetabulum while Cachorro DC assisted holding an anterior retractor for exposure. Once we reached the appropriate size and a trial was position and fit nicely. The appropriate size was now chosen opened and made available. It was introduced into the acetabulum without difficulty. The C-arm/fluoroscopy was now brought into the operative field. We made sure we had a true AP pelvic view. We now under direct C- arm/fluoroscopy introduced into the acetabular component with appropriate version and inclination. I held the cup in appropriate position well Cachorro DC used a mallet to seat the acetabular component. I noted the component now to be well seated and stable. Acetabular cup introduce her was removed. The C-arm was pulled back. An appropriate liner was introduced and clicked into position. It was felt to be stable. At this point retractors were removed. The extremity was now placed into 125 external rotation with no traction. The leg was now dropped to the ground and adducted. Appropriate retractors were now positioned along the proximal femur. We also placed our femoral look into position. Additional capsular releasing was performed to gain access to the proximal femur. We now used a box osteotome. A canal finder was now utilized. Serial broaching was now performed with the assistance of Cachorro DC tapping the broaches down with a mallet while held the broach in appropriate rotation and position. This was done until we reached the appropriate size with good overall rotational stability. Appropriate calcar planing was performed. A trial head/neck was placed into position. The hip was now reduced. The C- arm/fluoroscopy was brought back into the operative field. There appeared be good positioning of the components. Lesser trochanters appeared to align evenly confirming adequate leg length alignment. The C-arm/fluoroscopy was pulled back. Retractors were repositioned and the hip was dislocated. The leg was again taken down to the ground and adducted. Appropriate retractors were repositioned as well as the femoral hook. All trial components were removed. The femoral implant was opened along with the femoral head. The femoral implant was introduced on the appropriate handle into our pre-broached area. I held the component position well Cachorro DC used a mallet to seat the femoral component. The femoral component was now noted to be well seated and stable.. The femoral head was introduced with good positioning and fixation noted. Retractors were now removed. The hip was now reduced. There appeared be good positioning of the hip confirmed on intraoperative fluoroscopy. Spot films were obtained to document this. A second gram of TXA was given. The deep and superficial soft tissues were infiltrated with local analgesic. Bipolar cautery had been utilized intermittently through the procedure for hemostasis. The wound was irrigated copiously with pulse lavage mechanical irrigation. The fascia was repaired with Vicryl suture. The subcutaneous soft tissues were re paired in layers with Vicryl suture. The skin was approximated with pernio/Dermabond. Sterile dressings were applied. Patient was then awakened, transferred to a bed and taken to recovery in stable condition. Cachorro DC assisted with the complex procedure.
--- NOTE | 2018-12-10 15:36 | XR ---
Fluoroscopy History: HARDWARE PLACEMENT 18 sec fluoro, 1 image scanned
[2018-12-10] MEDS: HYDROmorphone 0.5 MG/0.5 ML SYRINGE IVP PRN ×3 (15:55→21:03)
[2018-12-10] MEDS: SENNOSIDES-DOCUSATE SODIUM 1 EACH TAB PO SCH (21:07)
[2018-12-11] MEDS: HYDROmorphone 0.5 MG/0.5 ML SYRINGE IVP PRN (00:11)
[2018-12-11] MEDS: HYDROcodone/APAP 5-325MG 1 EACH TAB PO PRN ×3 (06:01→18:27)
[2018-12-11] MEDS: LACTATED RINGERS 1,000 ML IV SCH ×3 (07:21→17:23)
[2018-12-11 07:22] LABS: Basophils # (A) 0.1 k/uL (0-0.2); Basophils % (A) 1 %; Eosinophils # (A) 0.3 k/uL (0-0.7); Eosinophils % (A) 4 %; HCT 31.9 % (34.0-46.0); Lymphocytes # (A) 2.1 k/uL (1.0-4.8); Lymphocytes % (A) 23 %; MCH 30.8 pg (25.0-35.0); MCHC 32.6 g/dL (31.0-37.0); MCV 94.4 fL (80.0-100.0); Mean Platelet Volume 7.2; Monocytes # (A) 0.5 k/uL (0-1.0); Monocytes % (A) 6 %; Neutrophils # (A) 5.8 k/uL (1.3-7.7); Neutrophils % (A) 65 %; Platelet Count 238 k/uL (150-450); RBC 3.38 m/uL (3.80-5.40); RDW 14.7 % (11.5-15.5)
[2018-12-11 07:30] LABS: HGB 10.4 gm/dL (11.4-16.0)
[2018-12-11] MEDS ORDERED: LORATADINE 10 MG TAB PO PRN (09:34)
[2018-12-11] MEDS ORDERED: FLUTICASONE 50MCG/SPRAY NASAL 16GM EA NOSTRIL PRN (09:34)
[2018-12-11] MEDS: ENOXAPARIN 40 MG/0.4 ML SYRINGE SQ SCH (09:47)
[2018-12-11] MEDS: MELOXICAM 7.5 MG TAB PO SCH (09:48)
[2018-12-11] MEDS: FAMOTIDINE 20 MG TAB PO SCH (09:48)
--- NOTE | 2018-12-11 12:52 | P.PN ---
Subjective Progress Note Date: 12/11/18 Principal diagnosis: Status post left total hip arthroplasty Patient evaluated at bedside today, she is resting in a hospital chair. She states she didn't sleep very well last night, she's had some increase in pain in the leg region. She is ambulating well with therapy. She denies any chest pain or shortness of breath. Objective - Vital Signs Vital signs: Vital Signs Temp 98.3 F 12/11/18 07:44 Pulse 79 12/11/18 07:44 Resp 16 12/11/18 04:00 BP 101/60 12/11/18 07:44 Pulse Ox 94 L 12/11/18 07:44 Intake & Output 12/10/18 12/11/18 12/11/18 18:59 06:59 18:59 Intake Total 651 Output Total 300 Balance 351 Intake: IV 651 Output: Estimated Blood Loss 300 Other: Voiding Method Toilet # Voids 1 - Exam Left lower extremity: Incision is clean, dry, and intact. The candido is in good condition. There is minimal soft tissue swelling and ecchymosis surrounding the medial and lateral aspects of the incision. Calf is soft, no tenderness with palpation. Plantar flexion, dorsiflexion, EHL, FHL are intact. Sensory exam to light touch throughout the extremity is intact, dorsal pedis pulses 2+. - Labs CBC & Chem 7: 12/11/18 06:36 Labs: Abnormal Lab Results - Last 24 Hours (Table) 12/11/18 Range/Units 06:36 RBC 3.38 L (3.80-5.40) m/uL Hgb 10.4 L D (11.4-16.0) gm/dL Hct 31.9 L (34.0-46.0) % Assessment and Plan Plan: Assessment: Postoperative day #1 status post right anterior left total hip arthroplasty Plan: Pain control, continue use of current medication GI and DVT prophylaxis, continue current medication Daily dressing changes/ice the hip region Continue work with physical therapy Encourage incentive spirometer Medical recommendations Discharge planning: Hopeful discharge to home tomorrow Time with Patient: Less than 30
--- NOTE | 2018-12-11 12:54 | P.DS ---
Providers Date of admission: 12/10/18 12:50 Attending physician: Horacio Perez Consults: 12/10/18 15:30 Consult Physician Routine Consulting Provider: Kendall Wilkins Reason/Comments: Medical management Do you want consulting provider notified?: Yes Primary care physician: Ania Yi Hospital Course: Date of admission: 12/10/2018 Date of discharge: [] Admission diagnosis: Status post direct anterior left total hip arthroplasty Discharge diagnosis: Same Attending physician: Dr. Perez Surgical procedures: Direct anterior left total hip arthroplasty Brief history: Patient is a 68-year-old female with a history of progressive primary left posterior arthritis. At this point patient has failed conservative treatment measures and has opted to proceed with a elective direct anterior left total hip arthroplasty. Hospital course: Details of patient's surgery can be found in operative report. Patient tolerated the procedure well and was subsequently transported to orthopedic floor. Patient's orthopeidc and medical care was provided daily. Patient had daily laboratory tests performed for evaluation of overall blood counts. Patient had daily physical therapy to include strengthening range of motion as well as education with walker ambulation. Patient was treated with Lovenox for their postoperative DVT prophylaxis during their inpatient stay. Patient was noted to have a relatively uneventful postoperative course. Patient reported satisfactory pain control with oral pain medications by postoperative day 0. Patient showed satisfactory progress with physical therapy. Patient moved steadily through the program and had no difficulty meeting the goals by postoperative day []. Given patient's otherwise satisfactory course and having met physical therapy goals, plan is to discharge patient [home] on postoperative day []. Discharge condition/disposition: Patient will be discharged [home] in stable condition. Discharge medications: Instructions are given on resumption of patient's normal daily medications per primary care recommendation, in addition patient will be prescribed []. Discharge instructions: 1. Wound care and infection precautions, [keep incision dry and covered while showering], no lotions, creams, moisturizers. No soaking, tubs, pools, hottubs. Do not scrub over the incision. 2. Weight-bear [as tolerated] with walker / cane until follow-up. 3. Ice and elevate when necessary. Do not exceed 20 minutes per hour with ice pack. 4. Utilize compression sleeve until seen at first follow up appointment. 5. Visiting nursing care. 6. Home physical therapy 7. Pain meds and anticoagulants per prescription. 8. Pain medication has potential to cause constipation. Increase oral fluid and fiber intake. Contact primary care provider if you have not had a bowel movement within 48 hours after discharge 9. No anti-inflammatory medication until discussed at first post operative visit, this including Motrin, Aleve, Mobic, Diclofenac 10. Follow up in office at 2 weeks postop with Cachorro Ga PA-C 11. Follow up with your primary care doctor 7-10 days after discharge. 12. Contact [facility] with any questions, . Procedures: Direct anterior left total hip arthroplasty Patient Condition at Discharge: Good Plan - Discharge Summary Discharge Rx Participant: Yes New Discharge Prescriptions: No Action Loratadine [Claritin] 10 mg PO DAILY PRN PRN Reason: congestion Levothyroxine Sodium [Synthroid] 75 mcg PO QAM Aspirin 325 mg PO DAILY Fluticasone Nasal [place] [Flonase Nasal [place]] 1 spray EA NOSTRIL DAILY PRN PRN Reason: Allergy Symptoms Calcium Carbonate [Calcium] 600 mg PO DAILY HYDROcodone/APAP 5-325MG [[place] 5-325] 1 tab PO BID #60 tab Atorvastatin [Lipitor] 20 mg PO DAILY Ibuprofen [Advil] 600 mg PO TID PRN PRN Reason: Pain Discharge Medication List Loratadine [Claritin] 10 mg PO DAILY PRN 09/06/17 [History] Aspirin 325 mg PO DAILY 09/12/17 [History] Calcium Carbonate [Calcium] 600 mg PO DAILY 09/12/17 [History] Fluticasone Nasal [place] [Flonase Nasal [place]] 1 spray EA NOSTRIL DAILY PRN 09/12/17 [History] Levothyroxine Sodium [Synthroid] 75 mcg PO QAM 09/12/17 [History] HYDROcodone/APAP 5-325MG [[place] 5-325] 1 tab PO BID #60 tab 12/25/17 [Rx] Atorvastatin [Lipitor] 20 mg PO DAILY 06/26/18 [History] Ibuprofen [Advil] 600 mg PO TID PRN 08/21/18 [History] Follow up Appointment(s)/Referral(s): Rafael Ga PAC [PHYSICIAN TRACTOR OPERATOR] - 2 Weeks Activity/Diet/Wound Care/Special Instructions: Orthopedic Discharge Instructions: 1. Wound care and infection precautions, keep incision dry and covered while showering, no lotions, creams, moisturizers. No soaking, pools, hot tubs. Do not scrub over incision. 2. Weight-bear as tolerated with walker / cane until follow-up. 3. Ice and elevate when necessary. Do not exceed 20 minutes per hour with ice pack. 4. Utilize compression sleeve until seen at first follow up appointment. 5. Pain meds and anticoagulants per prescription. 6. Pain medication has potential to cause constipation. Increase oral fluid and fiber intake. Contact primary care provider if you have not had a bowel movement within 48 hours after discharge. 7. No anti-inflammatory medication until discussed at first post operative visit, this including Motrin, Aleve, Mobic, Diclofenac. 8. Follow up in office at 2 weeks postop with Cachorro Ga PA-C 9. Follow up with your primary care doctor 7-10 days after discharge. 10. Contact [facility] with any questions, . Discharge Disposition: HOME WITH HOME HEALTH SERVICES
[2018-12-11] MEDS: traMADol 50 MG TAB PO PRN ×2 (14:44→22:02)
--- NOTE | 2018-12-11 15:25 | P.CONS ---
History of Present Illness - Reason for Consult Consult date: 12/11/18 Medical management - History of Present Illness This is a 68-year-old female patient Dr. Yi with past medical history of hyperlipidemia, gastroesophageal disease, hypothyroidism, degenerative disc disease and chronic back pain, generalized osteoarthritis. Patient has been brought into the hospital at care Dr. Perez status post left total hip arthroplasty, anterior approach. The patient is seen on post operative day #1. She has been afebrile, heart rate was 79, blood pressure 101/60, pulse ox 94% on room air. Hemoglobin is 10.5. Patient denies any nausea or vomiting. Pain has been issues through the night. She is complaining of left thigh discomfort. The patient's discharge plan is to return home. She has been started on Lovenox for DVT prophylaxis. Review of Systems All systems: negative Constitutional: Denies chills, Denies fatigue, Denies fever, Denies weight loss Eyes: denies blurred vision, denies pain Ears, nose, mouth and throat: Denies dysphagia, Denies headache, Denies nasal congestion, Denies nasal discharge, Denies sore throat, Denies vertigo Cardiovascular: Denies chest pain, Denies dyspnea on exertion, Denies edema, Denies leg edema, Denies lightheadedness, Denies shortness of breath, Denies syncope Respiratory: Denies cough, Denies cough with sputum, Denies dyspnea, Denies excessive sputum, Denies hemoptysis, Denies home oxygen, Denies wheezing Gastrointestinal: Denies abdominal pain, Denies diarrhea, Denies loss of appetite, Denies nausea, Denies vomiting Genitourinary: Denies dysuria, Denies hematuria Musculoskeletal: Denies myalgias Integumentary: Denies pruritus, Denies rash Neurological: Denies aphasia, Denies change in mentation, Denies confusion, Denies convulsions, Denies numbness, Denies weakness Psychiatric: Denies anxiety, Denies depression Endocrine: Denies fatigue, Denies weight change Past Medical History Past Medical History: GERD/Reflux, Hyperlipidemia, Osteoarthritis (OA), Thyroid Disorder Additional Past Medical History / Comment(s): varicose veins, degenerative disks, hx hiatal hernia, lichens planus History of Any Multi-Drug Resistant Organisms: None Reported Past Surgical History: Back Surgery, Hysterectomy, Joint Replacement, Orthopedic Surgery, Tonsillectomy Additional Past Surgical History / Comment(s): spinal fusion, laminectomy, rt carpal tunnel, partial left knee replacement, rt knee replacement, COLONOSCOPY, EGD, PAIN CLINIC PROCEDURES Past Anesthesia/Blood Transfusion Reactions: Motion Sickness Additional Past Anesthesia/Blood Transfusion Reaction / Comm: no hx blood transfusion complications Smoking Status: Never smoker Additional Past Alcohol Use History / Comment(s): Patient is a lifelong nonsmoker. Occasional alcohol use. No illicit drug use. Patient is - Past Family History Father Family Medical History: Cancer Additional Family Medical History / Comment(s): Father at age 64 from lung cancer. Sister(s) Family Medical History: Cancer Additional Family Medical History / Comment(s): Patient has 2 sisters. One has from brain cancer. One assist survivor of breast cancer. Mother Additional Family Medical History / Comment(s): Mother at age 81 from CVA consultations. She had her first CVA at age 70. Patient has 1 brother with no major medical problems. Patient has 3 sons with no major medical problems. Medications and Allergies Home Medications Medication Instructions Recorded Confirmed Type Loratadine [Claritin] 10 mg PO DAILY PRN 09/06/17 12/10/18 History Aspirin 325 mg PO DAILY 09/12/17 12/10/18 History Calcium Carbonate [Calcium] 600 mg PO DAILY 09/12/17 12/10/18 History Fluticasone Nasal [place] [Flonase 1 spray EA NOSTRIL DAILY PRN 09/12/17 12/10/18 History Nasal [place]] Levothyroxine Sodium [Synthroid] 75 mcg PO QAM 09/12/17 12/10/18 History HYDROcodone/APAP 5-325MG [[place] 1 tab PO BID #60 tab 12/25/17 12/10/18 Rx 5-325] Atorvastatin [Lipitor] 20 mg PO DAILY 06/26/18 12/10/18 History Ibuprofen [Advil] 600 mg PO TID PRN 08/21/18 12/10/18 History Allergies Allergy/AdvReac Type Severity Reaction Status Date / Time Sulfa (Sulfonamide Allergy swelling,hi Verified 12/10/18 15:39 Antibiotics) ves "mycin antibiotic unsure AdvReac severe Uncoded 12/10/18 15:40 exact 1" nausea adhesive tape AdvReac raw skin Uncoded 12/10/18 15:40 Physical Exam Vitals: Vital Signs Temp Pulse Resp BP Pulse Ox 12/11/18 07:44 98.3 F 79 101/60 94 L 12/11/18 04:00 16 12/11/18 00:41 98.2 F 74 14 93/52 94 L 12/10/18 23:50 14 12/10/18 21:00 14 12/10/18 19:30 71 99/63 12/10/18 19:15 84 100/59 12/10/18 19:00 86 100/62 12/10/18 18:45 84 116/63 12/10/18 18:30 83 110/60 12/10/18 18:15 88 116/89 12/10/18 18:00 67 131/84 12/10/18 17:57 72 18 114/70 98 12/10/18 17:45 70 114/70 12/10/18 17:30 98.2 F 62 12 120/68 97 12/10/18 16:55 72 16 126/62 97 12/10/18 16:40 73 18 128/65 96 12/10/18 16:25 64 18 132/63 95 12/10/18 16:10 64 16 111/55 100 12/10/18 15:55 50 L 16 138/75 99 12/10/18 15:41 97.8 F 73 16 158/80 98 Intake and Output 12/10/18 12/11/18 12/11/18 22:59 06:59 14:59 Intake Total 0 Output Total 300 Balance -300 Intake: IV 0 Output: Estimated Blood Loss 300 Other: Voiding Method Toilet Toilet # Voids 1 1 Gen: This is a 68-year-old female. She is resting in a recliner appears to be comfortable and in no acute distress. HEENT: Head is atraumatic, normocephalic. Pupils equal, round. Sclerae is anicteric. NECK: Supple. No JVD. No lymphadenopathy. No thyromegaly. LUNGS: Clear to auscultation. No wheezes or rhonchi. No intercostal retractions. HEART: Regular rate and rhythm. No murmur. ABDOMEN: Soft. Bowel sounds are present. No masses. No tenderness. EXTREMITIES: No pedal edema. No calf tenderness. Small wound to the left anterior chest with no significant erythema, edema, drainage. NEUROLOGICAL: Patient is awake, alert and oriented x3. Cranial nerves 2 through 12 are grossly intact. Results CBC & Chem 7: 12/11/18 06:36 Labs: Abnormal Lab Results - Last 24 Hours (Table) 12/11/18 Range/Units 06:36 RBC 3.38 L (3.80-5.40) m/uL Hgb 10.4 L D (11.4-16.0) gm/dL Hct 31.9 L (34.0-46.0) % Assessment and Plan Plan: 1. Osteoarthritis status post left total knee arthroplasty. Patient has had no postop comp occasions. She is on Lovenox for DVT prophylaxis. Continue current pain management per orthopedics. Continue PT OT per orthopedics. 2. Hyperlipidemia. Continue Lipitor 20 mg daily. 3. Seasonal ALLERGIES. Continue Claritin and Flonase. Discharge plan: home Impression and plan of care have been directed as dictated by the signing physician. Alma Redmond nurse practitioner acting as scribe for signing physician.
[2018-12-11] MEDS: SENNOSIDES-DOCUSATE SODIUM 1 EACH TAB PO SCH (22:02)
[2018-12-12] MEDS: HYDROcodone/APAP 5-325MG 1 EACH TAB PO PRN ×2 (00:31→07:58)
[2018-12-12] MEDS: traMADol 50 MG TAB PO PRN ×2 (05:35→12:34)
[2018-12-12] MEDS: LACTATED RINGERS 1,000 ML IV SCH ×2 (05:41)
[2018-12-12] MEDS ORDERED: LEVOTHYROXINE 75 MCG TAB PO SCH (06:30)
[2018-12-12 07:35] VITALS: BP 123/61; PULSE 83; RESP 16; TEMP 98.2
[2018-12-12] MEDS: MELOXICAM 7.5 MG TAB PO SCH (07:56)
[2018-12-12] MEDS: FAMOTIDINE 20 MG TAB PO SCH (07:56)
[2018-12-12] MEDS: ENOXAPARIN 40 MG/0.4 ML SYRINGE SQ SCH (07:56)
[2018-12-12] MEDS ORDERED: ATORVASTATIN 20 MG TAB PO SCH (09:00)
--- NOTE | 2018-12-12 11:26 | P.PN ---
Subjective Progress Note Date: 12/12/18 Principal diagnosis: Status post left total hip arthroplasty Patient evaluated at bedside today, she is resting in a hospital bed. She is ambulating well with therapy. She denies any chest pain or shortness of breath. Objective - Vital Signs Vital signs: Vital Signs Temp 98.2 F 12/12/18 07:33 Pulse 83 12/12/18 07:33 Resp 16 12/12/18 07:33 BP 123/61 12/12/18 07:33 Pulse Ox 97 12/12/18 07:33 Intake & Output 12/11/18 12/12/18 12/12/18 18:59 06:59 18:59 Intake Total 1000 200 Balance 1000 200 Intake: Oral 1000 200 Other: Voiding Method Toilet Toilet # Voids 4 1 - Exam Left lower extremity: Incision is clean, dry, and intact. The candido is in good condition. There is minimal soft tissue swelling and ecchymosis surrounding the medial and lateral aspects of the incision. Calf is soft, no tenderness with palpation. Plantar flexion, dorsiflexion, EHL, FHL are intact. Sensory exam to light touch throughout the extremity is intact, dorsal pedis pulses 2+. - Labs CBC & Chem 7: 12/11/18 06:36 Assessment and Plan Plan: Assessment: Postoperative day #2 status post right anterior left total hip arthroplasty Plan: Pain control, plan for discharge on oral medication GI and DVT prophylaxis, will resume aspirin 325 mg daily Daily dressing changes/ice the hip region Continue work with physical therapy Encourage incentive spirometer Medical recommendations Discharge planning: Plan for discharge home today Time with Patient: Less than 30
--- NOTE | 2018-12-12 11:35 | P.DS ---
Providers Date of admission: 12/10/18 12:50 Expected date of discharge: 12/12/18 Attending physician: Horacio Perez Consults: 12/10/18 15:30 Consult Physician Routine Consulting Provider: Kendall Wilkins Reason/Comments: Medical management Do you want consulting provider notified?: Yes Primary care physician: Ania Yi Hospital Course: Date of admission: 12/10/2018 Date of discharge: 12/12/2018 Admission diagnosis: Status post direct anterior left total hip arthroplasty Discharge diagnosis: Same Attending physician: Dr. Perez Surgical procedures: Direct anterior left total hip arthroplasty Brief history: Patient is a 68-year-old female with a history of progressive primary left hip osteoarthritis. At this point patient has failed conservative treatment measures and has opted to proceed with a elective direct anterior left total hip arthroplasty. Hospital course: Details of patient's surgery can be found in operative report. Patient tolerated the procedure well and was subsequently transported to orthopedic floor. Patient's orthopeidc and medical care was provided daily. Patient had daily laboratory tests performed for evaluation of overall blood counts. Patient had daily physical therapy to include strengthening range of motion as well as education with walker ambulation. Patient was treated with Lovenox for their postoperative DVT prophylaxis during their inpatient stay. Patient was noted to have a relatively uneventful postoperative course. Patient reported satisfactory pain control with oral pain medications by postoperative day 0. Patient showed satisfactory progress with physical therapy. Patient moved steadily through the program and had no difficulty meeting the goals by postoperative day 2. Given patient's otherwise satisfactory course and having met physical therapy goals, plan is to discharge patient home on postoperative day 2. Discharge condition/disposition: Patient will be discharged home in stable cond ition. Discharge medications: Instructions are given on resumption of patient's normal daily medications per primary care recommendation, in addition patient will be prescribed [place] 5 mg/325 mg, Colace 100 mg ,tramadol 50 mg. Discharge instructions: 1. Wound care and infection precautions, keep incision dry and covered while showering, no lotions, creams, moisturizers. No soaking, tubs, pools, hottubs. Do not scrub over the incision. 2. Weight-bear as tolerated with walker / cane until follow-up. 3. Ice and elevate when necessary. Do not exceed 20 minutes per hour with ice pack. 4. Utilize compression sleeve until seen at first follow up appointment. 5. Visiting nursing care. 6. Home physical therapy. 7. Pain meds and anticoagulants per prescription. 8. Pain medication has potential to cause constipation. Increase oral fluid and fiber intake. Contact primary care provider if you have not had a bowel movement within 48 hours after discharge 9. No anti-inflammatory medication until discussed at first post operative visit, this including Motrin, Aleve, Mobic, Diclofenac. 10. Follow up in office at 2 weeks postop with Cachorro Ga PA-C 11. Follow up with your primary care doctor 7-10 days after discharge. 12. Contact [facility] with any questions, . Procedures: Direct anterior left total hip arthroplasty Patient Condition at Discharge: Good Plan - Discharge Summary Discharge Rx Participant: Yes New Discharge Prescriptions: New Docusate [Colace] 100 mg PO DAILY #30 capsule Hydrocodone/Acetaminophen [[place] 5-325] 1 - 2 each PO Q6HR PRN #56 tab PRN Reason: Pain traMADol HCl [Ultram] 50 mg PO Q6H PRN #28 tab PRN Reason: Pain Continue Loratadine [Claritin] 10 mg PO DAILY PRN PRN Reason: congestion Levothyroxine Sodium [Synthroid] 75 mcg PO QAM Aspirin 325 mg PO DAILY Fluticasone Nasal [place] [Flonase Nasal [place]] 1 spray EA NOSTRIL DAILY PRN PRN Reason: Allergy Symptoms Calcium Carbonate [Calcium] 600 mg PO DAILY Atorvastatin [Lipitor] 20 mg PO DAILY Ibuprofen [Advil] 600 mg PO TID PRN PRN Reason: Pain Discharge Medication List Loratadine [Claritin] 10 mg PO DAILY PRN 09/06/17 [History] Aspirin 325 mg PO DAILY 09/12/17 [History] Calcium Carbonate [Calcium] 600 mg PO DAILY 09/12/17 [History] Fluticasone Nasal [place] [Flonase Nasal [place]] 1 spray EA NOSTRIL DAILY PRN 09/12/17 [History] Levothyroxine Sodium [Synthroid] 75 mcg PO QAM 09/12/17 [History] Atorvastatin [Lipitor] 20 mg PO DAILY 06/26/18 [History] Ibuprofen [Advil] 600 mg PO TID PRN 08/21/18 [History] Docusate [Colace] 100 mg PO DAILY #30 capsule 12/12/18 [Rx] Hydrocodone/Acetaminophen [[place] 5-325] 1 - 2 each PO Q6HR PRN #56 tab 12/12/18 [Rx] traMADol HCl [Ultram] 50 mg PO Q6H PRN #28 tab 12/12/18 [Rx] Follow up Appointment(s)/Referral(s): [facility], [NON-STAFF] - Ania Yi MD [Primary Care Provider] - 12/19/18 1:30 pm Rafael Ga PAC [PHYSICIAN G[employer]ER] - 12/26/18 2:30 pm Activity/Diet/Wound Care/Special Instructions: Orthopedic Discharge Instructions: 1. Wound care and infection precautions, keep incision dry and covered while showering, no lotions, creams, moisturizers. No soaking, pools, hot tubs. Do not scrub over incision. 2. Weight-bear as tolerated with walker / cane until follow-up. 3. Ice and elevate when necessary. Do not exceed 20 minutes per hour with ice pack. 4. Utilize compression sleeve until seen at first follow up appointment. 5. Pain meds and anticoagulants per prescription. 6. Pain medication has potential to cause constipation. Increase oral fluid and fiber intake. Contact primary care provider if you have not had a bowel movement within 48 hours after discharge. 7. No anti-inflammatory medication until discussed at first post operative visit, this including Motrin, Aleve, Mobic, Diclofenac. 8. Follow up in office at 2 weeks postop with Cachorro Ga PA-C 9. Follow up with your primary care doctor 7-10 days after discharge. 10. Contact [facility] with any questions, . Discharge Disposition: HOME WITH HOME HEALTH SERVICES
--- NOTE | 2018-12-12 14:38 | P.PN ---
Subjective Progress Note Date: 12/12/18 This is a 68-year-old female patient Dr. Yi with past medical history of hyperlipidemia, gastroesophageal disease, hypothyroidism, degenerative disc disease and chronic back pain, generalized osteoarthritis. Patient has been brought into the hospital at care Dr. Perez status post left total hip arthroplasty, anterior approach. The patient is seen on postoperative day #1. She has been afebrile, heart rate was 79, blood pressure 101/60, pulse ox 94% on room air. Hemoglobin is 10.5. Patient denies any nausea or vomiting. Pain has been issues through the night. She is complaining of left thigh discomfort. The patient's discharge plan is to return home. She has been started on Lovenox for DVT prophylaxis. 12/12: Patient states that her pain is much more controlled today. She is scheduled for discharge home. She is on full-strength aspirin for DVT prophylaxis. She has been afebrile, heart rate 83, blood pressure 123/61, pulse ox 97% on room air Objective - Vital Signs Vital signs: Vital Signs Temp 98.2 F 12/12/18 07:33 Pulse 83 12/12/18 07:33 Resp 16 12/12/18 07:33 BP 123/61 12/12/18 07:33 Pulse Ox 97 12/12/18 07:33 Intake & Output 12/11/18 12/12/18 12/12/18 18:59 06:59 18:59 Intake Total 1000 200 Balance 1000 200 Intake: Oral 1000 200 Other: Voiding Method Toilet Toilet # Voids 4 1 - Exam Review of Systems Constitutional: Denies chills, Denies fatigue, Denies fever, Denies weight loss Eyes: denies blurred vision, denies pain Ears, nose, mouth and throat: Denies dysphagia, Denies headache, Denies nasal congestion, Denies nasal discharge, Denies sore throat, Denies vertigo Cardiovascular: Denies chest pain, Denies dyspnea on exertion, Denies edema, Denies leg edema, Denies lightheadedness, Denies shortness of breath, Denies syncope Respiratory: Denies cough, Denies cough with sputum, Denies dyspnea, Denies excessive sputum, Denies hemoptysis, Denies home oxygen, Denies wheezing Gastrointestinal: Denies abdominal pain, Denies diarrhea, Denies loss of appetite, Denies nausea, Denies vomiting Genitourinary: Denies dysuria, Denies hematuria Musculoskeletal: Denies myalgias, pain left hip Integumentary: Denies pruritus, Denies rash Neurological: Denies aphasia, Denies change in mentation, Denies confusion, Denies convulsions, Denies numbness, Denies weakness Psychiatric: Denies anxiety, Denies depression Endocrine: Denies fatigue, Denies weight change Gen: This is a 68-year-old female. She is resting in a recliner appears to be comfortable. HEENT: Head is atraumatic, normocephalic. Pupils equal, round. Sclerae is anicteric. NECK: Supple. No JVD. No lymphadenopathy. No thyromegaly. LUNGS: Clear to auscultation. No wheezes or rhonchi. No intercostal retractions. HEART: Regular rate and rhythm. No murmur. ABDOMEN: Soft. Bowel sounds are present. No masses. No tenderness. EXTREMITIES: No pedal edema. No calf tenderness. Small wound to the left anterior chest with no significant erythema, edema, drainage. NEUROLOGICAL: Patient is awake, alert and oriented x3. Cranial nerves 2 through 12 are grossly intact. - Labs CBC & Chem 7: 12/11/18 06:36 Assessment and Plan Plan: 1. Osteoarthritis status post left total knee arthroplasty. Patient has had no postop comp occasions. She is on aspirin for DVT prophylaxis. Continue current pain management per orthopedics. Continue PT OT per orthopedics. 2. Hyperlipidemia. Continue Lipitor 20 mg daily. 3. Seasonal ALLERGIES. Continue Claritin and Flonase. Discharge plan: home Impression and plan of care have been directed as dictated by the signing physician. Alma Redmond nurse practitioner acting as scribe for signing physician.
== END 2018-12-12 13:00 | disposition home or self-care (01) | DRG 470 ==
LOC: 2ORMAIN 12:50 → 4SSUR 16:38
PROVIDERS: ADMIT Orthopaedic Surgery; ATTEND Orthopaedic Surgery
PROC: 0SRB03A Replacement of Left Hip Joint with Ceramic Synthetic Substitute, Uncemented, Open Approach (ICD-10-PCS; principal; 2018-12-10 13:00)
DX: M16.12 Unilateral primary osteoarthritis, left hip (principal); E03.9 Hypothyroidism, unspecified; E78.5 Hyperlipidemia, unspecified; G89.29 Other chronic pain; K21.9 Gastro-esophageal reflux disease without esophagitis; Z96.653 Presence of artificial knee joint, bilateral; M19.90 Unspecified osteoarthritis, unspecified site; J30.2 Other seasonal allergic rhinitis; Z79.82 Long term (current) use of aspirin; Z79.890 Hormone replacement therapy; Z79.899 Other long term (current) drug therapy; Z80.1 Family history of malignant neoplasm of trachea, bronchus and lung; Z80.3 Family history of malignant neoplasm of breast; Z80.8 Family history of malignant neoplasm of other organs or systems; Z82.3 Family history of stroke; Z90.710 Acquired absence of both cervix and uterus; Z98.1 Arthrodesis status; Z88.2 Allergy status to sulfonamides; Z90.89 Acquired absence of other organs; Z90.49 Acquired absence of other specified parts of digestive tract; Z88.1 Allergy status to other antibiotic agents; Z91.048 Other nonmedicinal substance allergy status
CPT/HCPCS: 36415; 73501; 85025; 86850; 86900; 86901; 88300

== ENCOUNTER 2019-01-04 11:16 | Inpatient (IN) | payer MEDICARE, BC ==
[2019-01-04] MEDS ORDERED: MORPHINE SULFATE 4 MG/ML SYRINGE IVP STA (11:25)
--- NOTE | 2019-01-04 11:41 | ED ---
Lower Extremity Injury HPI - General Source: patient, EMS, RN notes reviewed Mode of arrival: EMS Limitations: physical limitation <Darrian Crews - Last Filed: 01/04/19 13:27> <Mckinley Rojas - Last Filed: 01/04/19 13:35> - General Chief Complaint: Extremity Injury, Lower Stated Complaint: LEFT HIP PAIN FROM FALL, POST OP 3 WEEKS Time Seen by Provider: 01/04/19 11:19 - History of Present Illness Initial Comments: 68-year-old female presents emergency department via EMS chief complaint of left hip pain. Patient is 3 weeks postop hip replacement by Dr. Perez. Patient states that she was going to discharge states that she bent over slightly and felt a pop. Patient states then she fell directly to the ground. Patient states she has extreme pain to her left hip and buttocks region. Patient was given fentanyl placed by EMS. Patient denies any head injury no loss conscious. Patient did contact orthopedics office. (Darrian Crews) - Related Data Home Medications Medication Instructions Recorded Confirmed Loratadine [Claritin] 10 mg PO DAILY PRN 09/06/17 12/10/18 Aspirin 325 mg PO DAILY 09/12/17 12/10/18 Calcium Carbonate [Calcium] 600 mg PO DAILY 09/12/17 12/10/18 Fluticasone Nasal [place] [Flonase 1 spray EA NOSTRIL DAILY PRN 09/12/17 12/10/18 Nasal [place]] Levothyroxine Sodium [Synthroid] 75 mcg PO QAM 09/12/17 12/10/18 Atorvastatin [Lipitor] 20 mg PO DAILY 06/26/18 12/10/18 Ibuprofen [Advil] 600 mg PO TID PRN 08/21/18 12/10/18 Previous Rx's Medication Instructions Recorded Docusate [Colace] 100 mg PO DAILY #30 capsule 12/12/18 Hydrocodone/Acetaminophen [[place] 1 - 2 each PO Q6HR PRN #56 tab 12/12/18 5-325] traMADol HCl [Ultram] 50 mg PO Q6H PRN #28 tab 12/12/18 Allergies Allergy/AdvReac Type Severity Reaction Status Date / Time Sulfa (Sulfonamide Allergy swelling,hi Verified 12/10/18 15:39 Antibiotics) ves "mycin antibiotic unsure AdvReac severe Uncoded 12/10/18 15:40 exact 1" nausea adhesive tape AdvReac raw skin Uncoded 12/10/18 15:40 Review of Systems ROS Other: All systems not noted in ROS Statement are negative. <Darrian Crews - Last Filed: 01/04/19 13:27> ROS Other: All systems not noted in ROS Statement are negative. <Mckinley Rojas - Last Filed: 01/04/19 13:35> ROS Statement: Those systems with pertinent positive or pertinent negative responses have been documented in the HPI. Past Medical History Past Medical History: GERD/Reflux, Hyperlipidemia, Thyroid Disorder Additional Past Medical History / Comment(s): varicose veins, degenerative disks, hx hiatal hernia, lichens planus History of Any Multi-Drug Resistant Organisms: None Reported Past Surgical History: Back Surgery, Hysterectomy, Joint Replacement, Orthopedic Surgery, Tonsillectomy Additional Past Surgical History / Comment(s): spinal fusion, laminectomy, rt carpal tunnel, partial left knee replacement, rt knee replacement, COLONOSCOPY, EGD, PAIN CLINIC PROCEDURES, left hip replacement Past Anesthesia/Blood Transfusion Reactions: Motion Sickness Additional Past Anesthesia/Blood Transfusion Reaction / Comment(s): no hx blood transfusion complications Past Psychological History: No Psychological Hx Reported Smoking Status: Never smoker Past Alcohol Use History: Occasional Past Drug Use History: None Reported - Past Family History Father Family Medical History: Cancer Additional Family Medical History / Comment(s): Father at age 64 from lung cancer. Sister(s) Family Medical History: Cancer Additional Family Medical History / Comment(s): Patient has 2 sisters. One has from brain cancer. One assist survivor of breast cancer. Mother Additional Family Medical History / Comment(s): Mother at age 81 from CVA consultations. She had her first CVA at age 70. Patient has 1 brother with no major medical problems. Patient has 3 sons with no major medical problems. <Darrian Crews - Last Filed: 01/04/19 13:27> General Exam Limitations: no limitations General appearance: alert, in no apparent distress Neck exam: Present: normal inspection, full ROM. Absent: tenderness, meningismus, lymphadenopathy Respiratory exam: Present: normal lung sounds bilaterally. Absent: respiratory distress, wheezes, rales, rhonchi, stridor Cardiovascular Exam: Present: regular rate, normal rhythm, normal heart sounds. Absent: systolic murmur, diastolic murmur, rubs, gallop, clicks Extremities exam: Present: other (Left lower extremity noted shortening on the left, healing incision to left anterior hip region with palpable seroma, neurovascular intact there is tenderness in the posterior aspect) Skin exam: Present: warm, dry, intact, normal color. Absent: rash <Darrian Crews M - Last Filed: 01/04/19 13:27> Course <BobMckinley - Last Filed: 01/04/19 13:35> Vital Signs 01/04/19 01/04/19 01/04/19 11:24 11:32 13:05 Temperature 98.6 F Pulse Rate 90 97 87 Respiratory 18 18 Rate Blood Pressure 148/94 164/86 O2 Sat by Pulse 97 99 100 Oximetry 01/04/19 01/04/19 13:13 13:21 Temperature Pulse Rate 90 83 Respiratory 16 18 Rate Blood Pressure 158/86 148/75 O2 Sat by Pulse 99 100 Oximetry - Reevaluation(s) Reevaluation #1: 01/04/19 13:30 PA supervision: I proceeded a [id number] evaluation the patient she did recently have a left hip replacement. She did apparently bent over this morning felt a pop in the hip subsequently subluxed. Attempt was made to reduce the subluxation under moderate sedation without success. Case is discussed with multiple family members as well as with Dr. Alcantara Patient will be admitted. (Mckinley Rojas) Procedures - Procedural Sedation Procedural Sedation Start Time: 13:10 Procedural Sedation Stop Time: 13:00 ASA Class: II Mallampati Airway Score: 2 Preparation: ekg monitor tech applied, pulse oximeter, capnometry used, supplemental O2 applied, reversal agents at bedside, suction/airway equipment at bedside, IV secured IV Propofol Dose (mgs): 90 Patient Tolerated Procedure: other (Patient did tolerate the procedure however we were unsuccessful in reducing the subluxation.) <Mckinley Rojas - Last Filed: 01/04/19 13:35> Medical Decision Making <Darrian Crews - Last Filed: 01/04/19 13:27> - Medical Decision Making 68-year-old female presented for left hip pain. Patient has a dislocation of her prosthesis. Patient case discussed with Dr. Cintron covering for Dr. Perez. Patient hip attempted to be reduced in the emergency department unsuccessful. Patient be admitted to be reduced in the operating room (Darrian Crews) Disposition <Darrian Crews - Last Filed: 01/04/19 13:27> <Mckinley Rojas - Last Filed: 01/04/19 13:35> Clinical Impression: Hip dislocation, left Disposition: ADMITTED IP TO THIS HOSP Referrals: Kendall Wilkins MD [Primary Care Provider] - 1-2 days
--- NOTE | 2019-01-04 12:17 | XR ---
EXAMINATION TYPE: XR Hip LT and AP Pelvis DATE OF EXAM: 01/04/2019 COMPARISON: NONE HISTORY: Left hip pain and dislocation TECHNIQUE: A single AP view of the pelvis is obtained. Two views of the left hip are obtained. FINDINGS: Superolateral left hip arthroplasty dislocation is seen. No gross fracture is seen of the a cetabular or femoral components nor of the [place] surrounding bone. Postsurgical changes of the lumbo sacral spine are present. Overall pelvic osseous structures appear grossly intact. IMPRESSION: Superolateral left hip arthroplasty dislocation.
[2019-01-04] MEDS: PROPOFOL 10 MG/ML 20 ML VIAL IV STA ×2 (13:10→13:12)
[2019-01-04] MEDS ORDERED: HYDROmorphone 0.5 MG/0.5 ML SYRINGE IVP STA (13:16)
[2019-01-04] MEDS ORDERED: LORazepam 2 MG/ML INJ IV STA (13:16)
[2019-01-04] MEDS ORDERED: HYDROmorphone 1 MG/ML 1 ML SYRINGE IVP PRN (13:17)
[2019-01-04] MEDS ORDERED: ONDANSETRON 4 MG/2 ML VIAL IVP PRN (13:18)
[2019-01-04] MEDS ORDERED: HYDROmorphone 0.5 MG/0.5 ML SYRINGE IVP PRN (13:18)
[2019-01-04] MEDS ORDERED: LACTATED RINGERS 1,000 ML IV ONE (15:19)
[2019-01-04] MEDS: fentaNYL (PF) 50 MCG/ML 2 ML AMP IV ONE ×2 (15:37→16:28)
[2019-01-04] MEDS ORDERED: MIDAZOLAM (PF) 2 MG/2 ML VIAL IV ONE ×2 (15:37)
[2019-01-04] MEDS ORDERED: ONDANSETRON 4 MG/2 ML VIAL IVP ONE (15:43)
[2019-01-04] MEDS ORDERED: SUCCINYLCHOLINE CHLORIDE 100 MG/5 ML SYR IV ONE (16:31)
[2019-01-04] MEDS ORDERED: PROPOFOL 10 MG/ML 20 ML VIAL IV ONE (16:31)
[2019-01-04] MEDS ORDERED: fentaNYL (PF) 50 MCG/ML 2 ML AMP ONE (16:31)
[2019-01-04] MEDS ORDERED: LIDOCAINE 1% INJ 10MG/ML (20 ML MDV) ONE (16:31)
--- NOTE | 2019-01-04 16:39 | P.HPOR ---
History of Present Illness H&P Date: 01/04/19 Chief Complaint: Left hip pain The patient's a 68-year-old female who underwent left total hip arthroplasty by Dr. Perez on 12/10/2018 presents after injuring herself today. She notes she was trying to clean the base of her shower and bent over. She felt a pop and was unable to bear weight after that. She had been ambulating without any assistive devices up until this point. She recently was started on oral antibiotics per her PCP for left hip swelling. She denies any fevers or chills. Review of Systems Constitutional: Reports as per HPI (No fevers or chills) Past Medical History Past Medical History: GERD/Reflux, Hyperlipidemia, Thyroid Disorder Additional Past Medical History / Comment(s): varicose veins, degenerative disks, hx hiatal hernia, lichens planus History of Any Multi-Drug Resistant Organisms: None Reported Past Surgical History: Back Surgery, Hysterectomy, Joint Replacement (Bilateral total knee arthroplasty, left anterior total hip arthroplasty), Orthopedic Surgery, Tonsillectomy Additional Past Surgical History / Comment(s): spinal fusion, laminectomy, rt carpal tunnel, partial left knee replacement, rt knee replacement, COLONOSCOPY, EGD, PAIN CLINIC PROCEDURES, left hip replacement Past Anesthesia/Blood Transfusion Reactions: Motion Sickness Additional Past Anesthesia/Blood Transfusion Reaction / Comment(s): no hx blood transfusion complications Past Psychological History: No Psychological Hx Reported Smoking Status: Never smoker Past Alcohol Use History: Occasional Additional Past Alcohol Use History / Comment(s): Patient is a lifelong nonsmoker. Occasional alcohol use. No illicit drug use. Patient is Past Drug Use History: None Reported - Past Family History Father Family Medical History: Cancer Additional Family Medical History / Comment(s): Father at age 64 from lung cancer. Sister(s) Family Medical History: Cancer Additional Family Medical History / Comment(s): Patient has 2 sisters. One has from brain cancer. One assist survivor of breast cancer. Mother Additional Family Medical History / Comment(s): Mother at age 81 from CVA consultations. She had her first CVA at age 70. Patient has 1 brother with no major medical problems. Patient has 3 sons with no major medical problems. Medications and Allergies Home Medications Medication Instructions Recorded Confirmed Type Loratadine [Claritin] 10 mg PO DAILY PRN 09/06/17 01/04/19 History Aspirin 325 mg PO DAILY 09/12/17 01/04/19 History Calcium Carbonate [Calcium] 600 mg PO DAILY 09/12/17 01/04/19 History Fluticasone Nasal [place] [Flonase 1 spray EA NOSTRIL DAILY PRN 09/12/17 01/04/19 History Nasal [place]] Levothyroxine Sodium [Synthroid] 75 mcg PO QAM 09/12/17 01/04/19 History Atorvastatin [Lipitor] 20 mg PO DAILY 06/26/18 01/04/19 History Ibuprofen [Advil] 600 mg PO TID PRN 08/21/18 01/04/19 History Docusate [Colace] 100 mg PO DAILY #30 capsule 12/12/18 01/04/19 Rx traMADol HCl [Ultram] 50 mg PO Q6H PRN #28 tab 12/12/18 01/04/19 Rx Doxycycline Hyclate 100 mg PO BID 01/04/19 01/04/19 History Hydrocodone/Acetaminophen [[place] 1 - 2 tab PO Q6HR PRN 01/04/19 01/04/19 History 5-325] Allergies Allergy/AdvReac Type Severity Reaction Status Date / Time Sulfa (Sulfonamide Allergy swelling,hi Verified 01/04/19 15:15 Antibiotics) ves adhesive tape AdvReac RAW SKIN Verified 01/04/19 15:15 "mycin antibiotic unsure AdvReac severe Uncoded 01/04/19 15:15 exact 1" nausea Physical Examination - Hip left Gait: other (Nonambulatory) Tenderness with palpation: anterior (Moderate anterior incisional swelling, no warmth or erythema or drainage) Pain with motion: other (Pain with any attempted passive motion, shortening flexion and external rotation left leg) ROM: extension: 0 degrees ROM: flexion: 30 degrees Results - Diagnostic results Hip x-ray: image reviewed (Left anterior/superior hip dislocation, no definite fracture) Assessment and Plan Assessment: Left hip dislocation status post total hip arthroplasty Plan: I talked with the patient and her family regarding her condition and options at this point. We will attempt closed reduction utilizing anesthesia and fluoroscopy. Risks and benefits were discussed at length in layman's terms. Time with Patient: Greater than 30
[2019-01-04] MEDS ORDERED: HYDROcodone/APAP 7.5-325MG 1 EACH TAB PO PRN (16:50)
[2019-01-04] MEDS ORDERED: NALOXONE 0.4 MG/ML 1 ML VIAL IV PRN (16:50)
[2019-01-04] MEDS: HYDROcodone/APAP 7.5-325MG 1 EACH TAB PO PRN (21:31)
--- NOTE | 2019-01-04 22:10 | P.OP ---
Date of Procedure: 01/04/19 Preoperative Diagnosis: Left hip dislocation/status post total hip arthroplasty Postoperative Diagnosis: same Procedure(s) Performed: closed reduction left hip dislocation with general anesthesia/fluoroscopy Anesthesia: SANDRA Surgeon: Jacob Alcantara Estimated Blood Loss (ml): 0 Pathology: none sent Condition: stable Disposition: PACU Indications for Procedure: The patient is a 68 year old female who underwent left total hip arthroplasty [address] Perez who presents after dislocation today after bending over. A discussion of the risks and benefits of attempted closed reduction of her dislocation was made with the patient and her family. She opted to proceed. Operative Findings: as below Description of Procedure: The patient was brought to the operating room and after induction of general anesthesia, the left hip was reduced with longitudinal traction and manipulation. This was verified with fluoroscopy. Stability was checked in extension and 90 degrees of flexion. An abductor pillow was placed and the patient was awoken from general anesthesia. She was transferred to the recovery room in good condition. No complications were incurred. There was no blood loss.
[2019-01-05] MEDS: HYDROcodone/APAP 7.5-325MG 1 EACH TAB PO PRN ×2 (02:05→08:29)
[2019-01-05 07:11] LABS: Basophils # (A) 0.1 k/uL (0-0.2); Basophils % (A) 1 %; Eosinophils # (A) 0.5 k/uL (0-0.7); Eosinophils % (A) 6 %; HCT 30.7 % (34.0-46.0); Lymphocytes # (A) 2.6 k/uL (1.0-4.8); Lymphocytes % (A) 34 %; MCH 30.6 pg (25.0-35.0); MCHC 32.5 g/dL (31.0-37.0); Mean Platelet Volume 7.2; Monocytes # (A) 0.5 k/uL (0-1.0); Monocytes % (A) 7 %; Neutrophils # (A) 3.7 k/uL (1.3-7.7); Neutrophils % (A) 48 %; Platelet Count 294 k/uL (150-450); RBC 3.26 m/uL (3.80-5.40); WBC 7.6 k/uL (3.8-10.6)
[2019-01-05 08:25] VITALS: BP 121/69; PULSE 85; RESP 16; TEMP 98.1
[2019-01-05] MEDS ORDERED: ASPIRIN 325 MG TAB PO SCH (09:00)
[2019-01-05] MEDS ORDERED: FLUTICASONE 50MCG/SPRAY NASAL 16GM EA NOSTRIL PRN (09:25)
[2019-01-05] MEDS ORDERED: LORATADINE 10 MG TAB PO PRN (09:25)
[2019-01-05] MEDS ORDERED: LEVOTHYROXINE 75 MCG TAB PO SCH (09:30)
[2019-01-05] MEDS ORDERED: DOXYCYCLINE 100 MG CAP PO SCH (09:30)
--- NOTE | 2019-01-05 11:34 | P.PN ---
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 Objective - Vital Signs Vital signs: Vital Signs Temp 98.1 F 01/05/19 07:00 Pulse 85 01/05/19 07:00 Resp 16 01/05/19 07:00 BP 121/69 01/05/19 07:00 Pulse Ox 98 01/05/19 07:00 Intake & Output 01/04/19 01/05/19 01/05/19 18:59 06:59 18:59 Intake Total 700 236 Output Total 0 400 Balance 700 -400 236 Weight 88.451 kg Intake: IV 700 Oral 236 Output: Urine 400 Estimated Blood Loss 0 Other: Voiding Method Bedpan Bedpan Diaper Diaper # Voids 2 1 - Constitutional General appearance: Present: no acute distress - Musculoskeletal Musculoskeletal Comment(s): Moderate anterior swelling left hip, no erythema or warmth. Distal neurovascular exam intact left lower extremity. - Labs CBC & Chem 7: 01/05/19 06:44 Labs: Abnormal Lab Results - Last 24 Hours (Table) 01/05/19 Range/Units 06:44 RBC 3.26 L (3.80-5.40) m/uL Hgb 10.0 L (11.4-16.0) gm/dL Hct 30.7 L (34.0-46.0) % Assessment and Plan Assessment: Status post closed reduction left hip dislocation Plan: At this point we will discharge the patient home with hip precautions as instructed by physical therapy. We will have her use her walker for balance and support. She should follow with Dr. Perez this week. She can resume her home pain medications if needed. Time with Patient: Less than 30
--- NOTE | 2019-01-05 11:37 | P.DS ---
Providers Date of admission: 01/04/19 13:29 Expected date of discharge: 01/05/19 Attending physician: Jacob Alcantara Primary care physician: [place] [facility] Course: The patient underwent closed reduction of her dislocated left total hip arthroplasty without complication. She is able to ambulate with assistance and a walker after this. She had some soreness however her pain was under control with oral analgesics. Procedures: Closed reduction left hip dislocation Patient Condition at Discharge: Fair Plan - Discharge Summary Discharge Rx Participant: No New Discharge Prescriptions: No Action Loratadine [Claritin] 10 mg PO DAILY PRN PRN Reason: congestion Levothyroxine Sodium [Synthroid] 75 mcg PO QAM Aspirin 325 mg PO DAILY Fluticasone Nasal [place] [Flonase Nasal [place]] 1 spray EA NOSTRIL DAILY PRN PRN Reason: Allergy Symptoms Calcium Carbonate [Calcium] 600 mg PO DAILY Atorvastatin [Lipitor] 20 mg PO DAILY Ibuprofen [Advil] 600 mg PO TID PRN PRN Reason: Pain Docusate [Colace] 100 mg PO DAILY #30 capsule traMADol HCl [Ultram] 50 mg PO Q6H PRN #28 tab PRN Reason: Pain Hydrocodone/Acetaminophen [[place] 5-325] 1 - 2 tab PO Q6HR PRN PRN Reason: Pain Doxycycline Hyclate 100 mg PO BID Discharge Medication List Loratadine [Claritin] 10 mg PO DAILY PRN 09/06/17 [History] Aspirin 325 mg PO DAILY 09/12/17 [History] Calcium Carbonate [Calcium] 600 mg PO DAILY 09/12/17 [History] Fluticasone Nasal [place] [Flonase Nasal [place]] 1 spray EA NOSTRIL DAILY PRN 09/12/17 [History] Levothyroxine Sodium [Synthroid] 75 mcg PO QAM 09/12/17 [History] Atorvastatin [Lipitor] 20 mg PO DAILY 06/26/18 [History] Ibuprofen [Advil] 600 mg PO TID PRN 08/21/18 [History] Docusate [Colace] 100 mg PO DAILY #30 capsule 12/12/18 [Rx] traMADol HCl [Ultram] 50 mg PO Q6H PRN #28 tab 12/12/18 [Rx] Doxycycline Hyclate 100 mg PO BID 01/04/19 [History] Hydrocodone/Acetaminophen [[place] 5-325] 1 - 2 tab PO Q6HR PRN 01/04/19 [History] Follow up Appointment(s)/Referral(s): Kendall Wilkins MD [Primary Care Provider] - 1-2 days Horacio Perez DO [Doctor of Osteopathic Medicine] - 3 Days Activity/Diet/Wound Care/Special Instructions: Weightbearing as tolerated left leg with walker. Hip precautions as instructed. Avoid low chairs. Discharge Disposition: HOME SELF-CARE
[2019-01-05] MEDS ORDERED: CALCIUM CARBONATE 500 MG CHEWABLE PO SCH (12:00)
--- NOTE | 2019-01-05 12:14 | XR ---
Fluoroscopy INDICATION: Pain FINDINGS: Images obtained: 1. IMPRESSIONS: 1. Documentation of fluoroscopy.
--- NOTE | 2019-01-05 14:03 | FL ---
Fluoroscopy INDICATION: Pain FINDINGS: None IMPRESSIONS: 1. Documentation of fluoroscopy.
[2019-01-06] MEDS ORDERED: DOCUSATE 100 MG CAP PO SCH (09:00)
[2019-01-06] MEDS ORDERED: ATORVASTATIN 20 MG TAB PO SCH (09:00)
== END 2019-01-05 13:00 | disposition home or self-care (01) | DRG 561 ==
LOC: EC 11:16 → 4SSUR 13:29
PROVIDERS: ADMIT Orthopaedic Surgery; ATTEND Orthopaedic Surgery
PROC: 0SSBXZZ Reposition Left Hip Joint, External Approach (ICD-10-PCS; principal; 2019-01-04 14:54)
DX: T84.021A Dislocation of internal left hip prosthesis, initial encounter (principal); E78.5 Hyperlipidemia, unspecified; K21.9 Gastro-esophageal reflux disease without esophagitis; Z96.653 Presence of artificial knee joint, bilateral; W19.XXXA Unspecified fall, initial encounter; Y79.2 Prosthetic and other implants, materials and accessory orthopedic devices associated with adverse incidents; Z79.82 Long term (current) use of aspirin; Z79.890 Hormone replacement therapy; Z79.899 Other long term (current) drug therapy; Z80.1 Family history of malignant neoplasm of trachea, bronchus and lung; Z80.3 Family history of malignant neoplasm of breast; Z80.8 Family history of malignant neoplasm of other organs or systems; Z82.3 Family history of stroke; Z90.710 Acquired absence of both cervix and uterus; Z98.1 Arthrodesis status; Z88.1 Allergy status to other antibiotic agents; Z88.2 Allergy status to sulfonamides; Z91.048 Other nonmedicinal substance allergy status; Z90.89 Acquired absence of other organs; Z98.890 Other specified postprocedural states
CPT/HCPCS: 73501; 73502; 85025; 96374; 96375; 99285

== ENCOUNTER 2019-02-07 10:36 | Inpatient (IN) | payer MEDICARE, BC ==
[2019-02-07] MEDS ORDERED: LORazepam 2 MG/ML INJ IV STA (10:45)
[2019-02-07] MEDS ORDERED: HYDROmorphone 1 MG/ML 1 ML SYRINGE IVP STA (10:45)
--- NOTE | 2019-02-07 11:04 | ED ---
Lower Extremity Injury HPI - General Chief Complaint: Extremity Injury, Lower Stated Complaint: Dislocated L hip Time Seen by Provider: 02/07/19 10:40 Source: patient, EMS, RN notes reviewed, old records reviewed Mode of arrival: EMS Limitations: physical limitation - History of Present Illness Initial Comments: This is a 69-year-old female with a history of a left replacement and subsequent left location who presents now with complaints of a dislocated left hip with severe pain. She states she was bending over to put socks on and it popped out. Patient was brought in by EMS she states the pain is initially was 15/10 severity now is 12/10 after 100 g of fentanyl. No other injury reported no other complaints MD Complaint: hip injury - Related Data Home Medications Medication Instructions Recorded Confirmed Loratadine [Claritin] 10 mg PO DAILY PRN 09/06/17 02/07/19 Aspirin 325 mg PO DAILY 09/12/17 02/07/19 Calcium Carbonate [Calcium] 600 mg PO DAILY 09/12/17 02/07/19 Fluticasone Nasal [place] [Flonase 1 spray EA NOSTRIL DAILY PRN 09/12/17 02/07/19 Nasal [place]] Levothyroxine Sodium [Synthroid] 75 mcg PO QAM 09/12/17 02/07/19 Atorvastatin [Lipitor] 20 mg PO DAILY 06/26/18 02/07/19 Ibuprofen [Advil] 600 mg PO TID PRN 08/21/18 02/07/19 Hydrocodone/Acetaminophen [[place] 2 tab PO Q6HR PRN 01/04/19 02/07/19 5-325] Allergies Allergy/AdvReac Type Severity Reaction Status Date / Time Sulfa (Sulfonamide Allergy swelling,hi Verified 02/07/19 10:51 Antibiotics) ves adhesive tape AdvReac RAW SKIN Verified 02/07/19 10:51 "mycin antibiotic unsure AdvReac severe Uncoded 02/07/19 10:51 exact 1" nausea Review of Systems ROS Statement: Those systems with pertinent positive or pertinent negative responses have been documented in the HPI. ROS Other: All systems not noted in ROS Statement are negative. Past Medical History Past Medical History: GERD/Reflux, Hyperlipidemia, Thyroid Disorder Additional Past Medical History / Comment(s): varicose veins, degenerative disks, hx hiatal hernia, lichens planus History of Any Multi-Drug Resistant Organisms: None Reported Past Surgical History: Back Surgery, Hysterectomy, Joint Replacement, Orthopedic Surgery, Tonsillectomy Additional Past Surgical History / Comment(s): spinal fusion, laminectomy, rt carpal tunnel, partial left knee replacement, rt knee replacement, COLONOSCOPY, EGD, PAIN CLINIC PROCEDURES, left hip replacement Past Anesthesia/Blood Transfusion Reactions: Motion Sickness Additional Past Anesthesia/Blood Transfusion Reaction / Comment(s): no hx blood transfusion complications Past Psychological History: No Psychological Hx Reported Smoking Status: Never smoker Past Alcohol Use History: Occasional Past Drug Use History: None Reported - Past Family History Father Family Medical History: Cancer Additional Family Medical History / Comment(s): Father at age 64 from lung cancer. Sister(s) Family Medical History: Cancer Additional Family Medical History / Comment(s): Patient has 2 sisters. One has from brain cancer. One assist survivor of breast cancer. Mother Additional Family Medical History / Comment(s): Mother at age 81 from CVA consultations. She had her first CVA at age 70. Patient has 1 brother with no major medical problems. Patient has 3 sons with no major medical problems. General Exam - General Exam Comments Initial Comments: Is a well-developed well-nourished awake alert oriented 3 female who is in distress Limitations: physical limitation General appearance: alert, anxious, in distress Head exam: Present: atraumatic, normocephalic, normal inspection Eye exam: Present: normal appearance, PERRL, EOMI. Absent: scleral icterus, conjunctival injection, periorbital swelling ENT exam: Present: normal exam, mucous membranes moist Neck exam: Present: normal inspection. Absent: tenderness, meningismus, lymphadenopathy Respiratory exam: Present: normal lung sounds bilaterally. Absent: respiratory distress, wheezes, rales, rhonchi, stridor Cardiovascular Exam: Present: regular rate, normal rhythm, normal heart sounds. Absent: systolic murmur, diastolic murmur, rubs, gallop, clicks GI/Abdominal exam: Present: soft, normal bowel sounds. Absent: distended, tenderness, guarding, rebound, rigid Extremities exam: Present: tenderness, normal capillary refill, other (The left hip is held in a flexed position evidence of shortening consistent with sub luxation.). Absent: full ROM, pedal edema, joint swelling, calf tenderness Back exam: Present: normal inspection Neurological exam: Present: alert, oriented X3, CN II-XII intact Psychiatric exam: Present: normal affect, anxious Skin exam: Present: warm, dry, intact, normal color. Absent: rash Course Vital Signs 02/07/19 10:45 Pulse Rate 93 Respiratory 16 Rate Blood Pressure 172/105 O2 Sat by Pulse 99 Oximetry Medical Decision Making - Medical Decision Making The case is discussed with Dr. Perez group patient will be admitted for operative reduction of the prosthetic hip - Radiology Data Radiology results: report reviewed (I did review the imaging and reports patient does have a dislocated left hip prosthesis.), image reviewed Disposition Clinical Impression: Dislocation of hip joint prosthesis Disposition: ADMITTED IP TO THIS HOSP Condition: Fair Referrals: Kendall Wilkins MD [Primary Care Provider] - 1-2 days
--- NOTE | 2019-02-07 12:50 | XR ---
EXAMINATION TYPE: XR Hip Limited LT DATE OF EXAM: 02/07/2019 COMPARISON: 01/04/2019 HISTORY: Pain TECHNIQUE: One view submitted FINDINGS: Posterior dislocation of the femoral component of the prostheses. No definite acute fractur e. IMPRESSION: Posterior hip dislocation.
[2019-02-07] MEDS ORDERED: fentaNYL (PF) 50 MCG/ML 2 ML AMP IV STA (13:25)
[2019-02-07] MEDS ORDERED: DIAZEPAM 5 MG/ML 2 ML INJ IVP STA (13:38)
[2019-02-07] MEDS ORDERED: ONDANSETRON 4 MG/2 ML VIAL IVP PRN ×2 (13:40→20:47)
[2019-02-07] MEDS ORDERED: NALOXONE 0.4 MG/ML 1 ML VIAL IV PRN ×2 (13:40→20:47)
--- NOTE | 2019-02-07 14:13 | P.HPOR ---
History of Present Illness H&P Date: 02/07/19 Chief Complaint: Left periprosthetic hip dislocation Patient is a 69-year-old female presented to [facility] today with regards to an injury involving her left hip. Patient was recently admitted to [facility] in early December with a left periprosthetic hip dislocation. She underwent a closed reduction with the aid of fluoroscopy by Dr. Alcantara. Patient underwent her initial direct anterior left total hip arthroplasty by Dr. Perez on 12/10/2018. Leading up to the first dislocation, patient been doing very well. EMS to bring the patient to the hospital today, x-rays demonstrated a dislocation of the left hip. No other bony abnormalities were present. Patient was evaluated in the emergency room by myself, she had multiple family members present at bedside. Patient was made nothing by mouth as soon as she reported to the hospital, she was scheduled for a revision left total hip arthroplasty, surgery to take place on 02/07/2019. Patient has no other orthopedic complaints this time. Patient will be admitted to [facility] for an hospital under orthopedic care, internal medicine we placed on consult. Review of Systems Constitutional: Reports as per HPI Past Medical History Past Medical History: GERD/Reflux, Hyperlipidemia, Thyroid Disorder Additional Past Medical History / Comment(s): varicose veins, degenerative disks, hx hiatal hernia, lichens planus History of Any Multi-Drug Resistant Organisms: None Reported Past Surgical History: Back Surgery, Hysterectomy, Joint Replacement, Orthopedic Surgery, Tonsillectomy Additional Past Surgical History / Comment(s): spinal fusion, laminectomy, rt carpal tunnel, partial left knee replacement, rt knee replacement, COLONOSCOPY, EGD, PAIN CLINIC PROCEDURES, left hip replacement Past Anesthesia/Blood Transfusion Reactions: Motion Sickness Additional Past Anesthesia/Blood Transfusion Reaction / Comment(s): no hx blood transfusion complications Past Psychological History: No Psychological Hx Reported Smoking Status: Never smoker Past Alcohol Use History: Occasional Past Drug Use History: None Reported - Past Family History Father Family Medical History: Cancer Additional Family Medical History / Comment(s): Father at age 64 from lung cancer. Sister(s) Family Medical History: Cancer Additional Family Medical History / Comment(s): Patient has 2 sisters. One has from brain cancer. One assist survivor of breast cancer. Mother Additional Family Medical History / Comment(s): Mother at age 81 from CVA consultations. She had her first CVA at age 70. Patient has 1 brother with no major medical problems. Patient has 3 sons with no major medical problems. Medications and Allergies Home Medications Medication Instructions Recorded Confirmed Type Loratadine [Claritin] 10 mg PO DAILY PRN 09/06/17 02/07/19 History Aspirin 325 mg PO DAILY 09/12/17 02/07/19 History Calcium Carbonate [Calcium] 600 mg PO DAILY 09/12/17 02/07/19 History Fluticasone Nasal [place] [Flonase 1 spray EA NOSTRIL DAILY PRN 09/12/17 02/07/19 History Nasal [place]] Levothyroxine Sodium [Synthroid] 75 mcg PO QAM 09/12/17 02/07/19 History Atorvastatin [Lipitor] 20 mg PO DAILY 06/26/18 02/07/19 History Ibuprofen [Advil] 600 mg PO TID PRN 08/21/18 02/07/19 History Hydrocodone/Acetaminophen [[place] 2 tab PO Q6HR PRN 01/04/19 02/07/19 History 5-325] Allergies Allergy/AdvReac Type Severity Reaction Status Date / Time Sulfa (Sulfonamide Allergy swelling,hi Verified 02/07/19 10:51 Antibiotics) ves adhesive tape AdvReac RAW SKIN Verified 02/07/19 10:51 "mycin antibiotic unsure AdvReac severe Uncoded 02/07/19 10:51 exact 1" nausea Physical Examination Left lower extremity, No obvious open lesions or sores present,no areas of erythema The incisions well healed Obvious shortening of the leg is noted, she has a propped up in a flexed position on multiple pillows Range of motion is not assessed due to significant pain Sensory exam to light touch throughout the extremities intact Dorsal pedis pulses 2+ Results - Diagnostic results Hip x-ray: report reviewed, image reviewed Assessment and Plan Plan: Assessment: 1. Left periprosthetic hip dislocation 2. Recent left hip periprosthetic hip dislocation with closed reduction 3. History of left direct anterior replacement Plan: Dr. Perez was available today to examine the patient and discussed treatment options. We would like to proceed with a revision direct anterior left total hip arthroplasty. Patient was made nothing by mouth upon arrival to the hospital. Pain control Obtain consent Medical recommendations GI and DVT prophylaxis, we'll begin subcu medication after surgery Further recommendations to follow Time with Patient: Less than 30
[2019-02-07] MEDS: HYDROmorphone 1 MG/ML 1 ML SYRINGE IVP PRN (15:29)
[2019-02-07] MEDS: SODIUM CHLORIDE 0.9% 1,000 ML IV SCH ×4 (16:00→23:05)
[2019-02-07] MEDS ORDERED: VANCOMYCIN IV PER PHARMACY 1 EACH MISC MISCELLANE PRN (17:32)
[2019-02-07] MEDS ORDERED: IV FLUID CONTINUATION 1,000 ML IV ONE (17:37)
[2019-02-07 17:38] LABS: Basophils # (A) 0.1 k/uL (0-0.2); Basophils % (A) 1 %; Eosinophils # (A) 0.2 k/uL (0-0.7); Eosinophils % (A) 2 %; HCT 38.3 % (34.0-46.0); HGB 12.2 gm/dL (11.4-16.0); Lymphocytes % (A) 19 %; MCH 30.7 pg (25.0-35.0); MCHC 31.9 g/dL (31.0-37.0); MCV 96.2 fL (80.0-100.0); Mean Platelet Volume 6.5; Monocytes # (A) 0.5 k/uL (0-1.0); Monocytes % (A) 5 %; Neutrophils # (A) 7.3 k/uL (1.3-7.7); Neutrophils % (A) 71 %; Platelet Count 302 k/uL (150-450); RBC 3.98 m/uL (3.80-5.40); RDW 13.7 % (11.5-15.5); WBC 10.3 k/uL (3.8-10.6)
[2019-02-07] MEDS ORDERED: VANCOMYCIN 1,250 MG in SODIUM CHLORIDE 0.9% 250 ML IVPB ONE (17:45)
[2019-02-07 17:52] LABS: Calcium 9.6 mg/dL (8.4-10.2); Potassium 3.8 mmol/L (3.5-5.1)
[2019-02-07] MEDS ORDERED: fentaNYL (PF) 50 MCG/ML 2 ML AMP IV ONE (18:08)
[2019-02-07] MEDS ORDERED: ROPIVACAINE 246.25 MG, EPINEPHrine 0.5 MG, KETOROLAC 30 MG, cloNIDine HCL/PF 80 MCG, WA... MISCELLANE ONE ×5 (18:27)
[2019-02-07] MEDS ORDERED: ONDANSETRON 4 MG/2 ML VIAL ONE (18:31)
[2019-02-07] MEDS ORDERED: GLYCOPYRROLATE 0.2 MG/ML 2 ML VIAL ONE (18:31)
[2019-02-07] MEDS ORDERED: ROCURONIUM BROMIDE 10 MG/ML 10 ML VIAL IV ONE (18:31)
[2019-02-07] MEDS ORDERED: SUCCINYLCHOLINE CHLORIDE 100 MG/5 ML SYR IV ONE (18:31)
[2019-02-07] MEDS ORDERED: PROPOFOL 10 MG/ML 20 ML VIAL IV ONE (18:31)
[2019-02-07] MEDS ORDERED: LIDOCAINE 1% INJ 10MG/ML (20 ML MDV) ONE (18:31)
[2019-02-07] MEDS ORDERED: MIDAZOLAM 2 MG/2 ML VIAL ONE (18:31)
[2019-02-07] MEDS ORDERED: fentaNYL (PF) 50 MCG/ML 2 ML AMP ONE (18:31)
[2019-02-07] MEDS ORDERED: NEOSTIGMINE 1 MG/ML 10 ML VIAL ONE (18:31)
[2019-02-07] MEDS ORDERED: HYDROmorphone (PF) 1 MG/ML ONE (18:31)
[2019-02-07] MEDS ORDERED: LACTATED RINGERS 1,000 ML IV ONE (20:44)
[2019-02-07] MEDS ORDERED: HYDROmorphone 0.5 MG/0.5 ML SYRINGE IVP PRN (20:47)
--- NOTE | 2019-02-07 20:47 | P.OP ---
Date of Procedure: 02/07/19 Preoperative Diagnosis: Unstable left total hip arthroplasty Postoperative Diagnosis: Same Procedure(s) Performed: Revision left total hip arthroplasty revising the acetabular polyethylene liner and femoral head Implants: 1. Depuy constrained polyethylene liner +4 neutral 54 mm OD 32 mm ID 2. Depuy 32 mm +1 metallic head Anesthesia: robert FLORES Surgeon: Horacio Perez Brim Cutter #1: Rafael Ga Estimated Blood Loss (ml): 100 Pathology: none sent Condition: stable Disposition: PACU Indications for Procedure: 69-year-old patient who had previous undergone direct anterior left total hip arthroplasty. She had one previous dislocation and dislocated earlier today while putting her socks on. I discussed her unstable left total hip arthroplasty and recommended revision. I discussed procedure, risks, complications and recovery. Patient was agreeable and consent was obtained. Operative Findings: See description of procedure Description of Procedure: The patient was taken to the operative suite. The patient received a general anesthetic by the primary a seizure. The C-arm was brought into the operative field. A closed reduction was performed on the [place] table of the left hip. C- arm confirmed good reduction. The left hip was now prepped and draped in the normal sterile orthopedic fashion. The patient did receive preoperative IV antibiotics. I now made an incision over the previous cicatrix sharply through skin. I dissected down to the fascia. An incision made through the fascia. We evacuated a seroma. Retractors were positioned. The hip was dislocated. The ceramic head was removed. The previous polyethylene liner was removed. The wound was irrigated copiously with pulse lavage mechanical irrigation. We noted good fixation of both the acetabular cup and the femoral stem. Both appear to be adequately position. I now introduced a trial +4 neutral constrained liner. I placed a trial plus one 32 mm head. I reduced the hip. We had good overall stability with a constrained liner. The hip was now dislocated. The trial components were removed. We irrigated the wound out copiously with pulse lavage mechanical irrigation. I now introduced the constrained liner and popped into position. It was locked in nicely. We now connected our plus one 32 mm metallic femoral head and it was secure. We now placed the constrained liner ring over the head and reduced the hip. We now secured the constrained liner metallic ring image was locked in position. We now checked range of motion noted good good stability of the hip. We now brought the C-arm into the operative field confirming adequate positioning. Spot films were obtained document that. The wound was copiously irrigated with pulse lavage mechanical irrigation. The fascia was repaired with #1 Vicryl. The subcu soft tissues repair with 2-0 Vicryl. The skin was repaired with subcuticular sutures followed by Dermabond and pernio. Sterile dressings were applied. The patient was awakened, transferred to a bed and taken recovery stable condition. [place] DC assisted the procedure.
[2019-02-07] MEDS ORDERED: LORATADINE 10 MG TAB PO PRN (20:48)
[2019-02-07] MEDS ORDERED: FLUTICASONE 50MCG/SPRAY NASAL 16GM EA NOSTRIL PRN (20:48)
[2019-02-07] MEDS ORDERED: HYDROcodone/APAP 5-325MG 1 EACH TAB PO PRN (20:48)
[2019-02-07] MEDS: HYDROmorphone 1 MG/ML 1 ML SYRINGE IVP ONE ×2 (21:28→21:40)
[2019-02-07] MEDS: SENNOSIDES-DOCUSATE SODIUM 1 EACH TAB PO SCH (22:36)
[2019-02-08] MEDS: HYDROmorphone 0.5 MG/0.5 ML SYRINGE IVP PRN ×2 (00:47→18:18)
[2019-02-08] MEDS: LEVOTHYROXINE 75 MCG TAB PO SCH (06:05)
[2019-02-08] MEDS: SODIUM CHLORIDE 0.9% 1,000 ML IV SCH ×4 (06:05→22:47)
--- NOTE | 2019-02-08 07:18 | FL ---
EXAMINATION TYPE: FL guidance operating room, XR Hip Limited LT DATE OF EXAM: 02/07/2019 CLINICAL HISTORY: Left anterior hip revision. Fluoroscopic documentation. TECHNIQUE: Fluoroscopy. COMPARISON: None. FINDINGS: Fluoroscopic guidance was provided during procedure performed by Dr. Perez. A total o f 1 seconds of fluoroscopic time was utilized during the procedure and 1 spot images was acquired dur ing left anterior hip revision. IMPRESSION: As Above.
[2019-02-08] MEDS: CALCIUM CARBONATE 500 MG CHEWABLE PO SCH (08:31)
[2019-02-08] MEDS: ENOXAPARIN 40 MG/0.4 ML SYRINGE SQ SCH (08:31)
[2019-02-08] MEDS: ATORVASTATIN 20 MG TAB PO SCH (08:31)
[2019-02-08] MEDS: ASPIRIN 325 MG TAB PO SCH (08:31)
[2019-02-08] MEDS: FAMOTIDINE 20 MG TAB PO SCH (08:31)
[2019-02-08] MEDS ORDERED: FAMOTIDINE 20 MG TAB PO SCH (09:00)
[2019-02-08 09:20] LABS: Basophils # (A) 0.1 k/uL (0-0.2); Basophils % (A) 1 %; Eosinophils # (A) 0.2 k/uL (0-0.7); Eosinophils % (A) 3 %; HCT 31.9 % (34.0-46.0); Lymphocytes # (A) 2.1 k/uL (1.0-4.8); Lymphocytes % (A) 26 %; MCH 29.9 pg (25.0-35.0); MCHC 30.9 g/dL (31.0-37.0); MCV 96.9 fL (80.0-100.0); Mean Platelet Volume 6.5; Monocytes # (A) 0.5 k/uL (0-1.0); Monocytes % (A) 6 %; Neutrophils # (A) 4.9 k/uL (1.3-7.7); Neutrophils % (A) 61 %; Platelet Count 274 k/uL (150-450); RBC 3.29 m/uL (3.80-5.40); WBC 8.1 k/uL (3.8-10.6)
[2019-02-08 09:26] LABS: HGB 9.9 gm/dL (11.4-16.0)
--- NOTE | 2019-02-08 12:58 | P.PN ---
Progress Note - Text Progress Note Date: 02/08/19 Patient seen sitting up in chair. She reports some discomfort in her left hip but it's tolerable. Incision stable. Thigh soft and nontender. Distal neurovascular exam is intact. Negative José, negative Homans. Impression: Status post revision left total hip arthroplasty with revision of the acetabular polyethylene liner and head Plan: Physical therapy to assist with walker ambulation DVT prophylaxis Medical management
--- NOTE | 2019-02-08 13:13 | P.CONS ---
History of Present Illness - Reason for Consult Consult date: 02/08/19 Medical management, status post left hip revision arthroplasty, dislocated Requesting physician: Horacio Perez - Chief Complaint Dislocated left hip, 4 weeks post total hip arthroplasty, hypothyroidism an - History of Present Illness 69-year-old female one of for office patient with the past medical history of hypertension, hypothyroidism, GERD and osteoarthritis who underwent left total hip arthroplasty anterior approach by Dr. Perez on 12/10/2018 did well for the first couple weeks ended up having a 3 time dislocation on and off last time happened yesterday as patient was sitting in her chair and try to lean slightly when she felt the hip pop and could not bear any weight on it becoming quite but discomfort ended up calling 911 and brought to the emergency department with family member where was seen and evaluated Dr. Perez seen patient and evaluated her and decided to take her to the OR to do revision arthroplasty which was done successfully last night with no major complication. Patient is admitted to the floor afterward and has been doing well she is feeling much better pain is well control and no change in hemodynamic status. Review of Systems CONSTITUTIONAL: Well-developed no acute respiratory distress. EYES: No icterus sclerae, no conjunctivitis. EARS, NOSE, MOUTH, THROAT, and FACE: No sore throat, lymphadenopathy, carotid bruits or deformity. RESPIRATORY: No SOB cough or wheezes. CARDIOVASCULAR: No CP, Palpitation, PND, Orthopnea, or angina. GASTROINTESTINAL: No Abd pain, Nausea or vomiting, no Diarrhea or constipation, No GI Bleed, no distention or masses. GENITOURINARY: Negative for Hematuria or UTI, no kidney stones. INTEGUMENT/BREAST: Negative for any muscular injury with mild osteoarthritis.. HEMATOLOGIC/LYMPHATIC: Negative for bleed or purpura. MUSCULOSKELTAL: Positive left hip pain NEURLOGICAL: No LOC, Sz or syncope, blurred vision dizziness or abnormality.. BEHAVIORAL/PSYCH: Negative. ENDOCRINE: Negative. Past Medical History Past Medical History: Asthma, GERD/Reflux, Hyperlipidemia, Osteoarthritis (OA), Skin Disorder, Thyroid Disorder Additional Past Medical History / Comment(s): Total L hip with dislocation 01/04/19 with surgical intervention, hiatal hernia, hypothyroid, varicosities, chronic lower back pain, DDD, arthritis bilateral hands/knees, familial L hand/arm tremors, lichens planus, diverticular disease, allergy induced asthma. History of Any Multi-Drug Resistant Organisms: None Reported Past Surgical History: Adenoidectomy, Back Surgery, Hysterectomy, Joint Replacement, Orthopedic Surgery, Tonsillectomy Additional Past Surgical History / Comment(s): 12/10/18 Total L hip, 01/04/19 closed reduction L hip, spinal fusion/laminectomy-5 discs replaced/rods, bilateral carpal tunnel releases, partial L knee replacement, total R knee replacement, pain clinic procedures, EGD, colonoscopy, D&C, L breast biopsy-benign. Past Anesthesia/Blood Transfusion Reactions: Motion Sickness Additional Past Anesthesia/Blood Transfusion Reaction / Comm: no hx blood transfusion complications Smoking Status: Never smoker - Past Family History Father Family Medical History: Cancer Additional Family Medical History / Comment(s): Father at age 64 from lung cancer. Sister(s) Family Medical History: Cancer Additional Family Medical History / Comment(s): Patient has 2 sisters. One has from brain cancer. One assist survivor of breast cancer. Mother Additional Family Medical History / Comment(s): Mother at the age of 81 from complications of a CVA. She had her first CVA at the age of 70yrs. Medications and Allergies Home Medications Medication Instructions Recorded Confirmed Type Loratadine [Claritin] 10 mg PO DAILY PRN 09/06/17 02/07/19 History Aspirin 325 mg PO DAILY 09/12/17 02/07/19 History Calcium Carbonate [Calcium] 600 mg PO DAILY 09/12/17 02/07/19 History Fluticasone Nasal [place] [Flonase 1 spray EA NOSTRIL DAILY PRN 09/12/17 02/07/19 History Nasal [place]] Levothyroxine Sodium [Synthroid] 75 mcg PO QAM 09/12/17 02/07/19 History Atorvastatin [Lipitor] 20 mg PO DAILY 06/26/18 02/07/19 History Ibuprofen [Advil] 600 mg PO TID PRN 08/21/18 02/07/19 History Hydrocodone/Acetaminophen [[place] 2 tab PO Q6HR PRN 01/04/19 02/07/19 History 5-325] Allergies Allergy/AdvReac Type Severity Reaction Status Date / Time Sulfa (Sulfonamide Allergy swelling,hi Verified 02/07/19 10:51 Antibiotics) ves adhesive tape AdvReac RAW SKIN Verified 02/07/19 10:51 "mycin antibiotic unsure AdvReac severe Uncoded 02/07/19 10:51 exact 1" nausea Physical Exam Vitals: Vital Signs Temp Pulse Pulse Resp BP BP Pulse Ox 02/08/19 12:10 97.6 F 79 16 95/59 98 02/08/19 05:25 97.5 F L 79 14 106/62 95 02/08/19 00:23 90 101/65 02/07/19 23:54 78 109/64 02/07/19 23:17 111/96 96 02/07/19 23:01 80 122/73 97 02/07/19 22:46 80 146/80 100 02/07/19 22:31 76 127/78 100 02/07/19 22:23 81 12 134/82 98 02/07/19 22:05 97.9 F 70 16 145/82 95 02/07/19 21:46 76 16 142/69 99 02/07/19 21:31 77 16 142/72 99 02/07/19 21:16 82 16 135/66 97 02/07/19 21:06 98.0 F 82 14 141/69 96 02/07/19 17:40 98.1 F 83 18 159/90 100 02/07/19 15:24 98.3 F 83 22 171/79 100 02/07/19 13:54 83 14 174/80 96 Intake and Output 02/07/19 02/08/19 02/08/19 22:59 06:59 14:59 Intake Total 1350 240 Output Total 650 Balance 700 240 Intake: IV 1350 Oral 240 Output: Urine 550 Estimated Blood Loss 100 Other: Voiding Method Indwelling Catheter Indwelling Catheter General Appearance: Alert, cooperative, no distress, appears stated age. Neck HEENT: Supple, no lymphadenopathy, no thyroid enlargement, no carotid bruits. Lungs: Clear to auscultation without crackles or wheezes no rhonchi, no deformity. Chest Wall: Chest wall normal expansion with deep inspiration no tenderness and no deformity was found on exam, no costochondral pain or discomfort. Heart: Regular rate and rhythm, S1, S2 normal, no murmur, rub or gallop. Back: Symmetric, no curvature, ROM normal, no CVA tenderness. Abdomen: Soft, non-tender, bowel sounds active all four quadrants, no masses, no organomegaly. Extremities: Incision in the left hip area looks fine with no induration or redness or discomfort trace edema on the left side compared to the right side. Pulses: 2+ and symmetric. Skin: Skin color, texture, tugor normal, no rashes or lesions. Neurologic: Alert oriented x3 cranial nerves II through XII intact, no motor deficit, no abnormal balance or gait. Results CBC & Chem 7: 02/08/19 08:22 02/07/19 17:18 Labs: Abnormal Lab Results - Last 24 Hours (Table) 02/07/19 02/08/19 Range/Units 17:18 08:22 RBC 3.29 L (3.80-5.40) m/uL Hgb 9.9 L D (11.4-16.0) gm/dL Hct 31.9 L (34.0-46.0) % MCHC 30.9 L (31.0-37.0) g/dL BUN 18 H (7-17) mg/dL Glucose 103 H (74-99) mg/dL Assessment and Plan Plan: 1 status post left hip revision arthroplasty: Successful surgery patient is doing well resume home meds, continue pain management, continue EVT GI and pulmonary prophylaxis protocol. 2 recurrent post dislocated left hip shortly after total hip arthroplasty. Patient ended up going for revision surgery last night. 3 hypothyroidism: Resume levothyroxine at 75 g a day doing well with it. 4 hyperlipidemia: Remain on atorvastatin 20 mg a day continue medication. 5 chronic ALLERGY: Patient still on Claritin and nasal spray. 6 chronic pain management: Remain on hydrocodone 5/325 mg 1-2 tablet every 6 hours as needed. 7 DVT prophylaxis: Patient is on Lovenox 40 mg subcutaneous daily. 8 GI prophylaxis: Patient be on Pepcid 20 mg daily. CODE STATUS: Full code. Dr. Perez thank you very much for the consult if I can be any further help to please let me know
[2019-02-08] MEDS: HYDROcodone/APAP 7.5-325MG 1 EACH TAB PO PRN (16:12)
[2019-02-08] MEDS: SENNOSIDES-DOCUSATE SODIUM 1 EACH TAB PO SCH (20:26)
[2019-02-08] MEDS: HYDROmorphone 1 MG/ML 1 ML SYRINGE IVP PRN (22:57)
[2019-02-09] MEDS: HYDROmorphone 1 MG/ML 1 ML SYRINGE IVP PRN (02:38)
[2019-02-09] MEDS: LEVOTHYROXINE 75 MCG TAB PO SCH (05:42)
[2019-02-09] MEDS: SODIUM CHLORIDE 0.9% 1,000 ML IV SCH ×2 (05:44→08:14)
[2019-02-09] MEDS: ATORVASTATIN 20 MG TAB PO SCH (08:10)
[2019-02-09] MEDS: ASPIRIN 325 MG TAB PO SCH (08:10)
[2019-02-09] MEDS: FAMOTIDINE 20 MG TAB PO SCH (08:10)
[2019-02-09] MEDS: HYDROmorphone 0.5 MG/0.5 ML SYRINGE IVP PRN ×2 (08:11→21:58)
[2019-02-09] MEDS: ENOXAPARIN 40 MG/0.4 ML SYRINGE SQ SCH (08:11)
[2019-02-09] MEDS: CALCIUM CARBONATE 500 MG CHEWABLE PO SCH (08:14)
--- NOTE | 2019-02-09 08:46 | P.PN ---
Subjective Progress Note Date: 02/09/19 69-year-old female one of for office patient with the past medical history of hypertension, hypothyroidism, GERD and osteoarthritis who underwent left total hip arthroplasty anterior approach by Dr. Perez on 12/10/2018 did well for the first couple weeks ended up having a 3 time dislocation on and off last time happened yesterday as patient was sitting in her chair and try to lean slightly when she felt the hip pop and could not bear any weight on it becoming quite but discomfort ended up calling 911 and brought to the emergency department with family member where was seen and evaluated Dr. Perez seen patient and evaluated her and decided to take her to the OR to do revision arthr oplasty which was done successfully last night with no major complication. Patient is admitted to the floor afterward and has been doing well she is feeling much better pain is well control and no change in hemodynamic status. 02/09/2018: Patient has been unable to get out of bed and transfer to start chair or ambulate. Patient continues to have severe left hip pain, muscle spasm, weakness to the left leg. Patient states that she had a very poor night last night due to a neighbor yelling throughout the night. Hemoglobin was decreased from 12.2 yesterday to 9.9 today, most likely related to anemia due to blood loss. Patient is nervous about going home due to her needing to be out of town on Monday. Patient is requesting to stay in the hospital until Monday. She does have her sister coming to help her. Discussed with patient in length the possibility of going to a subacute rehab facility for a few days to continue with rehabilitation and daily therapy. Patient was reluctant to the idea however she will consider. Review of Systems CONSTITUTIONAL: Well-developed no acute respiratory distress. EYES: No icterus sclerae, no conjunctivitis. EARS, NOSE, MOUTH, THROAT, and FACE: No sore throat, lymphadenopathy, carotid bruits or deformity. RESPIRATORY: No SOB cough or wheezes. CARDIOVASCULAR: No CP, Palpitation, PND, Orthopnea, or angina. GASTROINTESTINAL: No Abd pain, Nausea or vomiting, no Diarrhea or constipation, No GI Bleed, no distention or masses. GENITOURINARY: Negative for Hematuria or UTI, no kidney stones. INTEGUMENT/BREAST: Negative for any muscular injury with mild osteoarthritis.. HEMATOLOGIC/LYMPHATIC: Negative for bleed or purpura. MUSCULOSKELTAL: Positive left hip pain positive weakness NEURLOGICAL: No LOC, Sz or syncope, blurred vision dizziness or abnormality.. BEHAVIORAL/PSYCH: Negative. ENDOCRINE: Negative. Objective - Vital Signs Vital signs: Vital Signs Temp 98.7 F 02/09/19 07:12 Pulse 84 02/09/19 07:12 Resp 18 02/09/19 07:12 BP 115/64 02/09/19 07:12 Pulse Ox 94 L 02/09/19 07:12 Intake & Output 02/08/19 02/09/19 02/09/19 18:59 06:59 18:59 Intake Total 240 300 Output Total 400 Balance -160 300 Intake: Oral 240 300 Output: Urine 400 Other: # Voids 2 1 - Exam General Appearance: Alert, cooperative, no distress, appears stated age. Neck HEENT: Supple, no lymphadenopathy, no thyroid enlargement, no carotid bruits. Lungs: Clear to auscultation without crackles or wheezes no rhonchi, no deformity. Chest Wall: Chest wall normal expansion with deep inspiration no tenderness and no deformity was found on exam, no costochondral pain or discomfort. Heart: Regular rate and rhythm, S1, S2 normal, no murmur, rub or gallop. Back: Symmetric, no curvature, ROM normal, no CVA tenderness. Abdomen: Soft, non-tender, bowel sounds active all four quadrants, no masses, no organomegaly. Extremities: Incision in the left hip area looks fine with no induration or redness or discomfort trace edema on the left side compared to the right side. Pulses: 2+ and symmetric. Skin: Skin color, texture, tugor normal, no rashes or lesions. Neurologic: Alert oriented x3 cranial nerves II through XII intact, no motor deficit, no abnormal balance or gait. - Labs CBC & Chem 7: 02/08/19 08:22 02/07/19 17:18 Labs: Abnormal Lab Results - Last 24 Hours (Table) 02/08/19 Range/Units 08:22 RBC 3.29 L (3.80-5.40) m/uL Hgb 9.9 L D (11.4-16.0) gm/dL Hct 31.9 L (34.0-46.0) % MCHC 30.9 L (31.0-37.0) g/dL Assessment and Plan Plan: 1 status post left hip revision arthroplasty: Postop day 2, increased pain, decrease mobility, resume home meds, continue pain management, continue GI and pulmonary prophylaxis protocol. May consider subacute rehab facility due to decreased mobility. Consult to social work for possible subacute rehab. 2. Left hip pain and spasm. Prednisone 50 mg daily, Flexeril 5 mg 3 times a day as needed, Mobic 15 mg daily. Encourage ambulation. 3 recurrent post dislocated left hip shortly after total hip arthroplasty. Postop day 2 4 hypothyroidism: Resume levothyroxine at 75 g a day 5 hyperlipidemia: Remain on atorvastatin 20 mg a day continue medication. 6 chronic ALLERGY: Patient still on Claritin and nasal spray. 7 chronic pain management: Remain on hydrocodone 5/325 mg 1-2 tablet every 6 hours as needed. 8 DVT prophylaxis: Patient is on Lovenox 40 mg subcutaneous daily. 9 GI prophylaxis: Patient be on Pepcid 20 mg daily. CODE STATUS: Full code. Dr. Perez thank you very much for the consult if I can be any further help to please let me know Impression and plan of care have been directed as dictated by the signing physician. Lily Graves nurse practitioner acting as scribe for signing physician.
[2019-02-09] MEDS: MELOXICAM 7.5 MG TAB PO SCH (10:55)
[2019-02-09] MEDS: predniSONE 50 MG TAB PO SCH (10:55)
[2019-02-09] MEDS: IRON POLYSACCHARIDES COMPLEX 150 MG CAP PO SCH (10:56)
--- NOTE | 2019-02-09 12:10 | P.PN ---
Progress Note - Text Progress Note Date: 02/09/19 Patient seen sitting up in chair. She does report some discomfort in the left hip. She has only ambulated minimally. Incision stable. Thigh soft. Homans and José are both negative. Distal neurovascular exam is intact. Impression: Status post revision left total hip arthroplasty Plan: Medical management Physical therapy DVT prophylaxis
[2019-02-09] MEDS: HYDROcodone/APAP 7.5-325MG 1 EACH TAB PO PRN (17:37)
[2019-02-09] MEDS: SENNOSIDES-DOCUSATE SODIUM 1 EACH TAB PO SCH (21:58)
[2019-02-09] MEDS: CYCLOBENZAPRINE 5 MG TAB PO PRN (22:29)
[2019-02-10] MEDS: LEVOTHYROXINE 75 MCG TAB PO SCH (05:51)
[2019-02-10 07:57] LABS: Basophils # (A) 0.1 k/uL (0-0.2); Basophils % (A) 1 %; Eosinophils # (A) 0.3 k/uL (0-0.7); Eosinophils % (A) 3 %; HCT 26.3 % (34.0-46.0); HGB 8.6 gm/dL (11.4-16.0); Lymphocytes # (A) 3.3 k/uL (1.0-4.8); Lymphocytes % (A) 32 %; MCH 30.8 pg (25.0-35.0); MCHC 32.6 g/dL (31.0-37.0); MCV 94.5 fL (80.0-100.0); Monocytes # (A) 0.7 k/uL (0-1.0); Monocytes % (A) 7 %; Neutrophils # (A) 5.6 k/uL (1.3-7.7); Neutrophils % (A) 54 %; Platelet Count 274 k/uL (150-450); RBC 2.78 m/uL (3.80-5.40); RDW 13.6 % (11.5-15.5); WBC 10.3 k/uL (3.8-10.6)
[2019-02-10] MEDS: ENOXAPARIN 40 MG/0.4 ML SYRINGE SQ SCH (08:11)
[2019-02-10] MEDS: IRON POLYSACCHARIDES COMPLEX 150 MG CAP PO SCH (08:12)
[2019-02-10] MEDS: CALCIUM CARBONATE 500 MG CHEWABLE PO SCH (08:12)
[2019-02-10] MEDS: HYDROcodone/APAP 7.5-325MG 1 EACH TAB PO PRN ×2 (08:12→21:00)
[2019-02-10] MEDS: ATORVASTATIN 20 MG TAB PO SCH (08:12)
[2019-02-10] MEDS: FAMOTIDINE 20 MG TAB PO SCH (08:12)
[2019-02-10] MEDS: ASPIRIN 325 MG TAB PO SCH (08:12)
[2019-02-10] MEDS: predniSONE 50 MG TAB PO SCH (08:12)
[2019-02-10] MEDS: MELOXICAM 7.5 MG TAB PO SCH (08:12)
--- NOTE | 2019-02-10 08:58 | P.PN ---
Subjective Progress Note Date: 02/10/19 69-year-old female one of for office patient with the past medical history of hypertension, hypothyroidism, GERD and osteoarthritis who underwent left total hip arthroplasty anterior approach by Dr. Perez on 12/10/2018 did well for the first couple weeks ended up having a 3 time dislocation on and off last time happened yesterday as patient was sitting in her chair and try to lean slightly when she felt the hip pop and could not bear any weight on it becoming quite but discomfort ended up calling 911 and brought to the emergency department with family member where was seen and evaluated Dr. Perez seen patient and evaluated her and decided to take her to the OR to do revision arthr oplasty which was done successfully last night with no major complication. Patient is admitted to the floor afterward and has been doing well she is feeling much better pain is well control and no change in hemodynamic status. 02/09/2018: Patient has been unable to get out of bed and transfer to start chair or ambulate. Patient continues to have severe left hip pain, muscle spasm, weakness to the left leg. Patient states that she had a very poor night last night due to a neighbor yelling throughout the night. Hemoglobin was decreased from 12.2 yesterday to 9.9 today, most likely related to anemia due to blood loss. Patient is nervous about going home due to her needing to be out of town on Monday. Patient is requesting to stay in the hospital until Monday. She does have her sister coming to help her. Discussed with patient in length the possibility of going to a subacute rehab facility for a few days to continue with rehabilitation and daily therapy. Patient was reluctant to the idea however she will consider. 02/10/2019: Patient is sitting up in chair today. Patient was able to walk with the assistance of physical therapy she states that her walking has getting better. She is feeling better today compared to yesterday. She states that the medication was given for pain has been helping. She still has some stiffness however it is improving. Patient states that she is planning on going home possibly tomorrow. Patient is afebrile, hemodynamically stable. Review of Systems CONSTITUTIONAL: Well-developed no acute respiratory distress. EYES: No icterus sclerae, no conjunctivitis. EARS, NOSE, MOUTH, THROAT, and FACE: No sore throat, lymphadenopathy, carotid bruits or deformity. RESPIRATORY: No SOB cough or wheezes. CARDIOVASCULAR: No CP, Palpitation, PND, Orthopnea, or angina. GASTROINTESTINAL: No Abd pain, Nausea or vomiting, no Diarrhea or constipation, No GI Bleed, no distention or masses. GENITOURINARY: Negative for Hematuria or UTI, no kidney stones. INTEGUMENT/BREAST: Negative for any muscular injury with mild osteoarthritis.. HEMATOLOGIC/LYMPHATIC: Negative for bleed or purpura. MUSCULOSKELTAL: Positive left hip pain positive weakness NEURLOGICAL: No LOC, Sz or syncope, blurred vision dizziness or abnormality.. BEHAVIORAL/PSYCH: Negative. ENDOCRINE: Negative. Objective - Vital Signs Vital signs: Vital Signs Temp 98.2 F 02/10/19 07:05 Pulse 75 02/10/19 07:05 Resp 18 02/10/19 07:05 BP 129/76 02/10/19 07:05 Pulse Ox 97 02/10/19 07:05 Intake & Output 02/09/19 02/10/19 02/10/19 18:59 06:59 18:59 Intake Total 1300 350 Balance 1300 350 Intake: IV 400 Sodium Chloride 0.9% 1, 400 000 ml @ 50 mls/hr IV . Q20H [facility] Rx#:[id number] Oral 900 350 Other: Voiding Method Toilet Bedside Commode # Voids 1 2 - Exam General Appearance: Alert, cooperative, no distress, appears stated age. Neck HEENT: Supple, no lymphadenopathy, no thyroid enlargement, no carotid bruits. Lungs: Clear to auscultation without crackles or wheezes no rhonchi, no deformity. Chest Wall: Chest wall normal expansion with deep inspiration no tenderness and no deformity was found on exam, no costochondral pain or discomfort. Heart: Regular rate and rhythm, S1, S2 normal, no murmur, rub or gallop. Back: Symmetric, no curvature, ROM normal, no CVA tenderness. Abdomen: Soft, non-tender, bowel sounds active all four quadrants, no masses, no organomegaly. Extremities: Incision in the left hip area clean and dry, with no induration or redness or discomfort trace edema on the left side compared to the right side. Pulses: 2+ and symmetric. Skin: Skin color, texture, tugor normal, no rashes or lesions. Neurologic: Alert oriented x3 cranial nerves II through XII intact, no motor deficit, no abnormal balance or gait. - Labs CBC & Chem 7: 02/10/19 07:04 02/07/19 17:18 Labs: Abnormal Lab Results - Last 24 Hours (Table) 02/10/19 Range/Units 07:04 RBC 2.78 L (3.80-5.40) m/uL Hgb 8.6 L (11.4-16.0) gm/dL Hct 26.3 L (34.0-46.0) % Assessment and Plan Plan: 1 status post left hip revision arthroplasty: Postop day 3, pain managed, increase ambulation, resume home meds, continue pain management, continue GI and pulmonary prophylaxis protocol. May consider subacute rehab facility due to decreased mobility. Consult to social work for possible subacute rehab. 2. Left hip pain and spasm. Prednisone 50 mg daily, Flexeril 5 mg 3 times a day as needed, Mobic 15 mg daily. Encourage ambulation. 3 recurrent post dislocated left hip shortly after total hip arthroplasty. Postop day 3 4 hypothyroidism: Resume levothyroxine at 75 g a day 5 hyperlipidemia: Remain on atorvastatin 20 mg a day continue medication. 6 chronic ALLERGY: Patient still on Claritin and nasal spray. 7 chronic pain management: Remain on hydrocodone 5/325 mg 1-2 tablet every 6 hours as needed. 8 DVT prophylaxis: Patient is on Lovenox 40 mg subcutaneous daily. 9 GI prophylaxis: Patient be on Pepcid 20 mg daily. CODE STATUS: Full code. Dr. Perez thank you very much for the consult if I can be any further help to please let me know Impression and plan of care have been directed as dictated by the signing physician. Lily Graves nurse practitioner acting as scribe for signing physician.
--- NOTE | 2019-02-10 11:40 | P.PN ---
Progress Note - Text Progress Note Date: 02/10/19 Patient seen resting comfortably in bed today. She has been up and ambulating with a walker. She still reports having some difficulty ambulating. She states that she does have some discomfort in the left hip girdle area but that is improving. She has no other current orthopedic complaints. Incision appears stable. Gentle log rolling of the hip is without pain. Distal neurovascular exam is intact. Homans and José are both negative. Impression: Status post revision left total hip arthroplasty Plan: Medical management Physical therapy DVT prophylaxis Anticipate discharge to home tomorrow
[2019-02-10] MEDS: SODIUM CHLORIDE 0.9% 1,000 ML IV SCH (11:44)
[2019-02-10] MEDS: CYCLOBENZAPRINE 5 MG TAB PO PRN (21:04)
[2019-02-10] MEDS: SENNOSIDES-DOCUSATE SODIUM 1 EACH TAB PO SCH (21:04)
[2019-02-11 00:59] VITALS: RESP 18
[2019-02-11] MEDS: HYDROcodone/APAP 7.5-325MG 1 EACH TAB PO PRN ×2 (02:51→09:41)
[2019-02-11] MEDS: LEVOTHYROXINE 75 MCG TAB PO SCH (05:35)
[2019-02-11 06:18] VITALS: BP 127/70; PULSE 74; TEMP 97.8
--- NOTE | 2019-02-11 06:45 | P.CONS ---
History of Present Illness - Chief Complaint Walking difficulty - History of Present Illness I had the opportunity to see patient for inpatient rehab consultation with regard to walking difficulty. She was admitted to [facility] February 07 the current dislocation left hip. Patient reports left hip replacement couple months ago, dislocated about a month ago and is read dislocated. Was admitted for underwent reduction performed by Dr. Lo Rosas. PT prescribed reports modified independent including gait 75 feet with roller walker. Patient reports up and bathroom privileges on own as well as walks in the hallway at roller walker level. Previous functional history as elicited from patient: 69-year-old right-handed white female who is lives in one floor home with . Retired. works [id number]. Patient independent with cooking, laundry, driving, standing shower. Regular doctors Dr. Wilkins. Review of Systems Review of systems: ENT: Denies sneezes or discharge. Eyes: Denies discharge or photophobia. Cardiac: Denies chest pain or palpitation. Pulmonary: Denies cough or shortness of breath. Breast: Denies discharge or lumps. Gastrointestinal: Denies nausea, emesis, constipation, diarrhea. Genitourinary: Denies discharge or frequency. Musculoskeletal: Denies muscle or bone aches. Neurologic: Denies motor or sensory change. Endocrine: Denies shakes or sweats. Oncology: Denies cancers. Dermatologic: Denies rash, itching, pruritus. ALLERGY/immunology: Denies sneezes, rashes. Past Medical History Past Medical History: Asthma, GERD/Reflux, Hyperlipidemia, Osteoarthritis (OA), Skin Disorder, Thyroid Disorder Additional Past Medical History / Comment(s): Total L hip with dislocation 01/04/19 with surgical intervention, hiatal hernia, hypothyroid, varicosities, chronic lower back pain, DDD, arthritis bilateral hands/knees, familial L hand/arm tremors, lichens planus, diverticular disease, allergy induced asthma. History of Any Multi-Drug Resistant Organisms: None Reported Past Surgical History: Adenoidectomy, Back Surgery, Hysterectomy, Joint Replacement, Orthopedic Surgery, Tonsillectomy Additional Past Surgical History / Comment(s): 12/10/18 Total L hip, 01/04/19 closed reduction L hip, spinal fusion/laminectomy-5 discs replaced/rods, bilateral carpal tunnel releases, partial L knee replacement, total R knee replacement, pain clinic procedures, EGD, colonoscopy, D&C, L breast biopsy-be nign. Past Anesthesia/Blood Transfusion Reactions: Motion Sickness Additional Past Anesthesia/Blood Transfusion Reaction / Comm: no hx blood transfusion complications Smoking Status: Never smoker - Past Family History Father Family Medical History: Cancer Additional Family Medical History / Comment(s): Father at age 64 from lung cancer. Sister(s) Family Medical History: Cancer Additional Family Medical History / Comment(s): Patient has 2 sisters. One has from brain cancer. One assist survivor of breast cancer. Mother Additional Family Medical History / Comment(s): Mother at the age of 81 from complications of a CVA. She had her first CVA at the age of 70yrs. Medications and Allergies Home Medications Medication Instructions Recorded Confirmed Type Loratadine [Claritin] 10 mg PO DAILY PRN 09/06/17 02/07/19 History Aspirin 325 mg PO DAILY 09/12/17 02/07/19 History Calcium Carbonate [Calcium] 600 mg PO DAILY 09/12/17 02/07/19 History Fluticasone Nasal [place] [Flonase 1 spray EA NOSTRIL DAILY PRN 09/12/17 02/07/19 History Nasal [place]] Levothyroxine Sodium [Synthroid] 75 mcg PO QAM 09/12/17 02/07/19 History Atorvastatin [Lipitor] 20 mg PO DAILY 06/26/18 02/07/19 History Ibuprofen [Advil] 600 mg PO TID PRN 08/21/18 02/07/19 History Hydrocodone/Acetaminophen [[place] 2 tab PO Q6HR PRN 01/04/19 02/07/19 History 5-325] Allergies Allergy/AdvReac Type Severity Reaction Status Date / Time Sulfa (Sulfonamide Allergy swelling,hi Verified 02/07/19 10:51 Antibiotics) ves adhesive tape AdvReac RAW SKIN Verified 02/07/19 10:51 "mycin antibiotic unsure AdvReac severe Uncoded 02/07/19 10:51 exact 1" nausea Physical Exam Vitals: Vital Signs Temp Pulse Resp BP Pulse Ox 02/11/19 05:00 97.8 F 74 18 127/70 97 02/10/19 21:00 80 18 113/69 99 02/10/19 13:42 98.6 F 71 20 126/69 97 02/10/19 07:05 98.2 F 75 18 129/76 97 Intake and Output 02/10/19 02/10/19 02/11/19 14:59 22:59 06:59 Intake Total 750 300 100 Balance 750 300 100 Intake: Oral 750 300 100 Other: Voiding Method Toilet Bedside Commode # Voids 2 1 2 # Bowel Movements 0 0 Skin: Good color, texture, turgor. General: Overweight build and comfortable appearance. Head: Normocephalic, atraumatic. Eyes: Symmetric. Pupils equal round. Ears: Symmetric. Hearing within normal limits. Mouth: Clear. Neck: Supple. Carotid without bruit. Cardiac: Regular rate and rhythm. Lungs: Clear anteriorly and posteriorly. Abdomen: Soft active nontender. Extremities: Normal tone. Neurological: Mental status: Alert, cooperative, pleasant. Cranial nerves: Symmetric facial tone and trapezius. Motor: Normal strength and isolation all 4 limbs. Sensation: Intact throughout. DTRs: Symmetric and equal throughout. Mobility: Sits and stands without assistance or verbal cueing or loss of balance in room at roller walker level. Results CBC & Chem 7: 02/10/19 07:04 02/07/19 17:18 Labs: Abnormal Lab Results - Last 24 Hours (Table) 02/10/19 Range/Units 07:04 RBC 2.78 L (3.80-5.40) m/uL Hgb 8.6 L (11.4-16.0) gm/dL Hct 26.3 L (34.0-46.0) % Assessment and Plan (1) Dislocation of hip joint prosthesis Current Visit: Yes Status: Acute Code(s): T84.029A - DISLOCATION OF UNSP INTERNAL JOINT PROSTHESIS, INIT ENCNTR; Z96.649 - PRESENCE OF UNSPECIFIED ARTIFICIAL HIP JOINT SNOMED Code(s): 944085194 Plan: Impression: 1. Walking difficulty. 2. Dislocation left prosthetic hip and status post relocation. Comments and plan: At this time PT ongoing. Patient modified independent at roller walker level. Do not anticipate need of inpatient rehab and patient a greramses. Anticipate return to home with home support services per orthopedist's discretion.
[2019-02-11] MEDS: CALCIUM CARBONATE 500 MG CHEWABLE PO SCH (07:09)
[2019-02-11] MEDS: ASPIRIN 325 MG TAB PO SCH (07:09)
[2019-02-11] MEDS: FAMOTIDINE 20 MG TAB PO SCH (07:10)
[2019-02-11] MEDS: MELOXICAM 7.5 MG TAB PO SCH (07:10)
[2019-02-11] MEDS: ENOXAPARIN 40 MG/0.4 ML SYRINGE SQ SCH (07:10)
[2019-02-11] MEDS: predniSONE 50 MG TAB PO SCH (07:10)
[2019-02-11] MEDS: ATORVASTATIN 20 MG TAB PO SCH (07:10)
[2019-02-11] MEDS: IRON POLYSACCHARIDES COMPLEX 150 MG CAP PO SCH (11:24)
--- NOTE | 2019-02-11 12:55 | P.PN ---
Subjective Progress Note Date: 02/11/19 Principal diagnosis: Status post revision left total hip arthroplasty Patient evaluated bedside, she's resting comfortably. She's interested in going home. Denies chest pain or shortness of breath. Objective - Vital Signs Vital signs: Vital Signs Temp 97.8 F 02/11/19 05:00 Pulse 74 02/11/19 05:00 Resp 18 02/11/19 05:00 BP 127/70 02/11/19 05:00 Pulse Ox 97 02/11/19 05:00 Intake & Output 02/10/19 02/11/19 02/11/19 18:59 06:59 18:59 Intake Total 750 400 240 Balance 750 400 240 Intake: Oral 750 400 240 Other: Voiding Method Toilet Toilet Bedside Commode Bedside Commode # Voids 3 2 3 # Bowel Movements 1 0 - Exam Left lower extremity: Incision is clean, dry, and intact. The candido and stitches are in good condition. There is minimal soft tissue swelling and ecchymosis surrounding the medial and lateral aspects of the incision. Calf is soft, no tenderness with palpation. Plantar flexion, dorsiflexion, EHL, FHL are intact. Sensory exam to light touch throughout the extremity is intact, dorsal pedis pulses 2+. - Labs CBC & Chem 7: 02/10/19 07:04 02/07/19 17:18 Assessment and Plan Plan: Assessment: 1. Status post revision left total hip arthroplasty Plan: Pain control, oral medication as needed Aspirin 325 mg daily for DVT prophylaxis Home therapy and nursing Plan for follow-up in 2 weeks Time with Patient: Less than 30
--- NOTE | 2019-02-11 12:58 | P.DS ---
Providers Date of admission: 02/07/19 13:40 Expected date of discharge: 02/11/19 Attending physician: Horacio Perez Consults: 02/07/19 20:47 Consult Physician Routine Consulting Provider: Kendall Wilkins Reason/Comments: Medical management Do you want consulting provider notified?: Yes 02/09/19 09:32 Consult Physician Routine Consulting Provider: Cachorro Silva Reason/Comments: inpatient rehab request Do you want consulting provider notified?: Yes Primary care physician: Kendall Wilkins Hospital Course: Date of admission: 02/07/2019 Date of discharge: 02/11/2019 Admission diagnosis: Periprosthetic left hip dislocation Discharge diagnosis: Status post revision left total hip arthroplasty Attending physician: Dr. Perez Surgical procedures: Revision left total hip arthroplasty Brief history: Patient is a 69-year-old female with a history of a recent left total hip arthroplasty. She had a dislocation a month after surgery, this was relocated with the aid of anesthesia. She then had another dislocation on 02/07/2019, she is brought to the hospital, she was admitted with plan for surgery and revision of her left total hip arthroplasty. She underwent surgery on 02/07/2019. Hospital course: Details of patient's surgery can be found in operative report. Patient tolerated the procedure well and was subsequently transported to orthopedic floor. Patient's orthopeidc and medical care was provided daily. Patient had daily laboratory tests performed for evaluation of overall blood count. Patient had daily physical therapy to include strengthening range of motion as well as education with walker ambulation. Patient was treated with Lovenox for their postoperative DVT prophylaxis during their inpatient stay. Patient was noted to have a relatively uneventful postoperative course. Patient reported satisfactory pain control with oral pain medications by postoperative day 0. Patient showed satisfactory progress with physical therapy. Patient moved steadily through the program and had no difficulty meeting the goals by postoperative day 4. Given patient's otherwise satisfactory course and having met physical therapy goals, plan is to discharge patient home on postoperative day 4. Discharge condition/disposition: Patient will be discharged home in stable condition. Discharge medications: Instructions are given on resumption of patient's normal daily medications per primary care recommendation, in addition patient will be prescribed [place], meloxicam, prednisone, Senokot, Pepcid, iron, Flexeril, iron. Discharge instructions: 1. Wound care and infection precautions, [keep incision dry and covered while showering], no lotions, creams, moisturizers. No soaking, tubs, pools, hottubs. Do not scrub over the incision. 2. Weight-bear as tolerated with walker / cane until follow-up. 3. Ice and elevate when necessary. Do not exceed 20 minutes per hour with ice pack. 4. Utilize compression sleeve until seen at first follow up appointment. 5. Visiting nursing care. 6. Home physical therapy 7. Pain meds and anticoagulants per prescription. 8. Pain medication has potential to cause constipation. Increase oral fluid and fiber intake. Contact primary care provider if you have not had a bowel movement within 48 hours after discharge 9. No anti-inflammatory medication until discussed at first post operative visit, this including Motrin, Aleve, Mobic, Diclofenac 10. Follow up in office at 2 weeks postop with Cachorro Ga PA-C 11. Follow up with your primary care doctor 7-10 days after discharge. 12. Contact [facility] with any questions, . Procedures: Revision left total hip arthroplasty Patient Condition at Discharge: Fair Plan - Discharge Summary Discharge Rx Participant: No New Discharge Prescriptions: New Aspirin EC [Ecotrin Low Dose] 81 mg PO BID #60 tablet. Cyclobenzaprine [Flexeril] 5 mg PO TID PRN #60 tab PRN Reason: Muscle Spasm Meloxicam [Mobic] 15 mg PO DAILY #30 tab Iron Polysaccharides Complex [Niferex-150] 150 mg PO DAILY@1200 #30 cap Famotidine [Pepcid] 20 mg PO DAILY #30 tab Sennosides-Docusate Sodium [Senokot-S] 2 each PO HS #30 tab predniSONE 20 mg PO BID #10 tab HYDROcodone/APAP 7.5-325MG [[place] 7.5] 1 - 2 each PO Q6HR PRN #56 tab PRN Reason: Pain Continue Loratadine [Claritin] 10 mg PO DAILY PRN PRN Reason: congestion Levothyroxine Sodium [Synthroid] 75 mcg PO QAM Fluticasone Nasal Jewell [Flonase Nasal Jewell] 1 spray EA NOSTRIL DAILY PRN PRN Reason: Allergy Symptoms Calcium Carbonate [Calcium] 600 mg PO DAILY Atorvastatin [Lipitor] 20 mg PO DAILY Ibuprofen [Advil] 600 mg PO TID PRN PRN Reason: Pain Discontinued Aspirin 325 mg PO DAILY Hydrocodone/Acetaminophen [[place] 5-325] 2 tab PO Q6HR PRN PRN Reason: Pain Discharge Medication List Loratadine [Claritin] 10 mg PO DAILY PRN 09/06/17 [History] Calcium Carbonate [Calcium] 600 mg PO DAILY 09/12/17 [History] Fluticasone Nasal Jewell [Flonase Nasal Jewell] 1 spray EA NOSTRIL DAILY PRN 09/12/17 [History] Levothyroxine Sodium [Synthroid] 75 mcg PO QAM 09/12/17 [History] Atorvastatin [Lipitor] 20 mg PO DAILY 06/26/18 [History] Ibuprofen [Advil] 600 mg PO TID PRN 08/21/18 [History] Aspirin EC [Ecotrin Low Dose] 81 mg PO BID #60 tablet.dr 02/11/19 [Rx] Cyclobenzaprine [Flexeril] 5 mg PO TID PRN #60 tab 02/11/19 [Rx] Famotidine [Pepcid] 20 mg PO DAILY #30 tab 02/11/19 [Rx] HYDROcodone/APAP 7.5-325MG [[place] 7.5] 1 - 2 each PO Q6HR PRN #56 tab 02/11/19 [Rx] Iron Polysaccharides Complex [Niferex-150] 150 mg PO DAILY@1200 #30 cap 02/11/19 [Rx] Meloxicam [Mobic] 15 mg PO DAILY #30 tab 02/11/19 [Rx] Sennosides-Docusate Sodium [Senokot-S] 2 each PO HS #30 tab 02/11/19 [Rx] predniSONE 20 mg PO BID #10 tab 02/11/19 [Rx] Follow up Appointment(s)/Referral(s): [facility], [NON-STAFF] - Kendall Wilkins MD [Primary Care Provider] - 1 Week Rafael Ga PAC [PHYSICIAN ROD TAPE OPERATOR] - 10 Days Activity/Diet/Wound Care/Special Instructions: Orthopedic Discharge Instructions: 1. Wound care and infection precautions, keep incision dry and covered while showering, no lotions, creams, moisturizers. No soaking, pools, hot tubs. Do not scrub over incision. 2. Weight-bear as tolerated with walker / cane until follow-up. 3. Ice and elevate when necessary. Do not exceed 20 minutes per hour with ice pack. 4. Utilize compression sleeve until seen at first follow up appointment. 5. Pain meds and anticoagulants per prescription. 6. Pain medication has potential to cause constipation. Increase oral fluid and fiber intake. Contact primary care provider if you have not had a bowel movement within 48 hours after discharge. 7. No anti-inflammatory medication until discussed at first post operative visit, this including Motrin, Aleve, Mobic, Diclofenac. 8. Follow up in office at 2 weeks postop with Cachorro Ga PA-C 9. Follow up with your primary care doctor 7-10 days after discharge. 10. Contact [facility] with any questions, . Discharge Disposition: HOME WITH HOME HEALTH SERVICES
--- NOTE | 2019-02-13 10:54 | P.PN ---
Subjective Progress Note Date: 02/11/19 69-year-old female one of for office patient with the past medical history of hypertension, hypothyroidism, GERD and osteoarthritis who underwent left total hip arthroplasty anterior approach by Dr. Perez on 12/10/2018 did well for the first couple weeks ended up having a 3 time dislocation on and off last time happened yesterday as patient was sitting in her chair and try to lean slightly when she felt the hip pop and could not bear any weight on it becoming quite but discomfort ended up calling 911 and brought to the emergency department with family member where was seen and evaluated Dr. Perez seen patient and evaluated her and decided to take her to the OR to do revision arth roplasty which was done successfully last night with no major complication. Patient is admitted to the floor afterward and has been doing well she is feeling much better pain is well control and no change in hemodynamic status. 02/09/2018: Patient has been unable to get out of bed and transfer to start chair or ambulate. Patient continues to have severe left hip pain, muscle spasm, weakness to the left leg. Patient states that she had a very poor night last night due to a neighbor yelling throughout the night. Hemoglobin was decreased from 12.2 yesterday to 9.9 today, most likely related to anemia due to blood loss. Patient is nervous about going home due to her needing to be out of town on Monday. Patient is requesting to stay in the hospital until Monday. She does have her sister coming to help her. Discussed with patient in length the possibility of going to a subacute rehab facility for a few days to continue with rehabilitation and daily therapy. Patient was reluctant to the idea however she will consider. 02/10/2019: Patient is sitting up in chair today. Patient was able to walk with the assistance of physical therapy she states that her walking has getting better. She is feeling better today compared to yesterday. She states that the medication was given for pain has been helping. She still has some stiffness however it is improving. Patient states that she is planning on going home possibly tomorrow. Patient is afebrile, hemodynamically stable. 02/11: Patient is doing well with physical therapy and cleared for discharge. Her plan is to return home. Her pain is currently controlled and she has been working with physical therapy. Patient has been afebrile, heart rate 74, blood pressure 127/70, pulse ox 97% on room air. Medication reconciliation reviewed. Patient will have follow-up with Dr. Bruce in one week. Review of Systems CONSTITUTIONAL: Well-developed no acute respiratory distress. EYES: No icterus sclerae, no conjunctivitis. EARS, NOSE, MOUTH, THROAT, and FACE: No sore throat, lymphadenopathy, carotid bruits or deformity. RESPIRATORY: No SOB cough or wheezes. CARDIOVASCULAR: No CP, Palpitation, PND, Orthopnea, or angina. GASTROINTESTINAL: No Abd pain, Nausea or vomiting, no Diarrhea or constipation, No GI Bleed, no distention or masses. GENITOURINARY: Negative for Hematuria or UTI, no kidney stones. INTEGUMENT/BREAST: Negative for any muscular injury with mild osteoarthritis.. HEMATOLOGIC/LYMPHATIC: Negative for bleed or purpura. MUSCULOSKELTAL: Positive left hip pain-controlled weakness NEURLOGICAL: No LOC, Sz or syncope, blurred vision dizziness or abnormality.. BEHAVIORAL/PSYCH: Negative. ENDOCRINE: Negative. Objective - Vital Signs Vital signs: Vital Signs Temp 97.8 F 02/11/19 05:00 Pulse 74 02/11/19 05:00 Resp 18 02/11/19 05:00 BP 127/70 02/11/19 05:00 Pulse Ox 97 02/11/19 05:00 Intake & Output 02/10/19 02/11/19 02/11/19 18:59 06:59 18:59 Intake Total 750 400 240 Balance 750 400 240 Intake: Oral 750 400 240 Other: Voiding Method Toilet Toilet Bedside Commode Bedside Commode # Voids 3 2 # Bowel Movements 1 0 - Exam General Appearance: Alert, cooperative, no distress, appears stated age. Neck HEENT: Supple, no lymphadenopathy, no thyroid enlargement, no carotid bruits. Lungs: Clear to auscultation without crackles or wheezes no rhonchi, no deformity. Chest Wall: Chest wall normal expansion with deep inspiration no tenderness and no deformity was found on exam, no costochondral pain or discomfort. Heart: Regular rate and rhythm, S1, S2 normal, no murmur, rub or gallop. Back: Symmetric, no curvature, ROM normal, no CVA tenderness. Abdomen: Soft, non-tender, bowel sounds active all four quadrants, no masses, no organomegaly. Extremities: Incision in the left hip area clean and dry, with no induration or redness or discomfort trace edema on the left side compared to the right side. Pulses: 2+ and symmetric. Skin: Skin color, texture, tugor normal, no rashes or lesions. Neurologic: Alert oriented x3 cranial nerves II through XII intact, no motor deficit, no abnormal balance or gait. - Labs CBC & Chem 7: 02/10/19 07:04 02/07/19 17:18 Assessment and Plan Plan: 1 status post left hip revision arthroplasty: pain managed, increase ambulation, resume home meds, continue pain management, continue GI and pulmonary prophylaxis protocol. Plan is for discharge home 2. Left hip pain and spasm. Prednisone 50 mg daily, Flexeril 5 mg 3 times a day as needed, Mobic 15 mg daily. Encourage ambulation. 3 recurrent post dislocated left hip shortly after total hip arthroplasty. 4 hypothyroidism: Resume levothyroxine at 75 g a day 5 hyperlipidemia: Remain on atorvastatin 20 mg a day continue medication. 6 chronic ALLERGY: Patient still on Claritin and nasal spray. 7 chronic pain management: Remain on hydrocodone 5/325 mg 1-2 tablet every 6 hours as needed. 8 DVT prophylaxis: Patient is on Lovenox 40 mg subcutaneous daily. 9 GI prophylaxis: Patient be on Pepcid 20 mg daily. CODE STATUS: Full code. Dr. Perez thank you very much for the consult if I can be any further help to please let me know Impression and plan of care have been directed as dictated by the signing physician. Lily Graves nurse practitioner acting as scribe for signing physician.
--- NOTE | 2019-02-14 05:14 | CDI ---
Documentation Clarification Form Date: 02/14/19 From: Jose Bentley Phone: call [phone] Admit Date: 02/07/2019 1:40:00 PM Patient Name: Elba Haas Visit Number: [id number] Discharge Date: 02/11/2019 1:23:00 PM ATTENTION: The Clinical Documentation Specialists (CDI) and [facility] Coding Staff appreciate your assistance in clarifying documentation. Please respond to the clarification below the line at the bottom and electronically sign. The CDI & [facility] Coding staff will review the response and follow-up if needed. Please note: Queries are made part of the Legal Health Record. If you have any questions, please contact the author of this message via ITS. Dr. Horacio Perez, A diagnosis of anemia lacks specificity to accurately reflect your patients severity of condition and clarification is needed. History/Risk Factors: Hip dislocation/Arthroplasty Hemoglobin: 12.2L on 02/07 and 8.6L on 02/11 Hematocrit: 26.3L Treatment: Iron Polysaccharides Complex [Niferex-150] 150 mg 02/09,02/10,02/11 Progress notes documented as "Hemoglobin was decreased from 12.2 yesterday to 9.9 today, most likely related to anemia due to blood loss". In order to capture the severity of condition, please clarify the type of anemia and etiology if known: Acute blood loss anemia Iron deficiency anemia Unable to determine Other, please specify acute blood loss anemia secondary to surgery MTDD
== END 2019-02-11 13:23 | disposition home health service (06) | DRG 467 ==
LOC: EC 10:36 → 4MS4W 13:40
PROVIDERS: ADMIT Orthopaedic Surgery; ATTEND Orthopaedic Surgery
PROC: 0SPB0JZ Removal of Synthetic Substitute from Left Hip Joint, Open Approach (ICD-10-PCS; principal; 2019-02-07 13:00)
PROC: 0SRB02Z Replacement of Left Hip Joint with Metal on Polyethylene Synthetic Substitute, Open Approach (ICD-10-PCS; principal; 2019-02-07 13:00)
DX: T84.021A Dislocation of internal left hip prosthesis, initial encounter (principal); D62 Acute posthemorrhagic anemia; K21.9 Gastro-esophageal reflux disease without esophagitis; E78.5 Hyperlipidemia, unspecified; E03.9 Hypothyroidism, unspecified; Z96.653 Presence of artificial knee joint, bilateral; I10 Essential (primary) hypertension; J45.909 Unspecified asthma, uncomplicated; M54.5 Low back pain; M19.042 Primary osteoarthritis, left hand; M19.041 Primary osteoarthritis, right hand; G89.29 Other chronic pain; Y79.2 Prosthetic and other implants, materials and accessory orthopedic devices associated with adverse incidents; Z87.19 Personal history of other diseases of the digestive system; Z98.890 Other specified postprocedural states; Z86.79 Personal history of other diseases of the circulatory system; Z79.82 Long term (current) use of aspirin; Z79.890 Hormone replacement therapy; Z79.899 Other long term (current) drug therapy; Z88.1 Allergy status to other antibiotic agents; Z88.2 Allergy status to sulfonamides; Z91.048 Other nonmedicinal substance allergy status; Z90.710 Acquired absence of both cervix and uterus; Z90.89 Acquired absence of other organs; Z98.1 Arthrodesis status; Z80.1 Family history of malignant neoplasm of trachea, bronchus and lung; Z80.3 Family history of malignant neoplasm of breast; Z80.8 Family history of malignant neoplasm of other organs or systems; Z82.3 Family history of stroke; Z87.2 Personal history of diseases of the skin and subcutaneous tissue
CPT/HCPCS: 73501; 80048; 85025; 86850; 86900; 86901; 96374; 96375; 99285

== ENCOUNTER → 2020-01-08 | Outpatient (CLI) | payer MEDICARE, BC ==
[2020-01-08 11:34] VITALS: BP 155/85; PULSE 94; RESP 18
--- NOTE | 2020-01-09 13:59 | P.PAINPG ---
Subjective Progress Note Date: 01/08/20 This is follow-up visit for this 68 years old female with a history of severe and chronic low back pain secondary to lumbar postlaminectomy pain syndrome, Bilateral sacroiliitis, currently she is complaining of severe low back pain with radiation into the left hip area, pain intensity increased with any activity and interferes with her quality of life and her ability to ambulate The patient currently on [place] 5/325 twice a day, and Motrin 600 mg when necessary every 8 hours, Flexeril 10 mg daily at bedtime, he is getting prescription refills from her primary care Patient denies any side effect of the medication , patient denies any excessive drowsiness or sleepiness, patient denies any suicidal ideation, Patient reported that the current medication is helping to control the pain and improve the activity of daily livings, Patient denies any motor or sensory deficit, denies any change in the bowel movement or urination, patient denies any fever or night sweats. Objective - Vital Signs Vital signs: Vital Signs Temp Pulse 94 01/08/20 11:27 Resp 18 01/08/20 11:27 BP 155/85 01/08/20 11:27 Pulse Ox 97 01/08/20 11:27 - Exam Physical Examinations : -Constitutiona : Cooperative , not in acute distress . -HEENT : nech : supple , no Lymphadenopathy , normal thyroid size . : eyes : no ptosis , no icterus, no photophobia . - neurologic : Cranial nerve II to XII intact , no focal neurological deffecit . -psychatric : alert , oriented X 3 , appropriate affect , intact judgment and insight . -Lymphatic : no Lymphadenopathy . - musculoskeltal : Lumber spine moter stegnth lower extremities ,thigh and legs 5/5 Right side , 5/5 Left side deep tendon reflexes : normal Knee Jerk , normal ankle Jerk lumber facet Loading Test =positive Right , positive Left Range of motion of the lumbar spine Flexion 30 degrees, extension 10 degrees strait leg raising test = positive at 30 degree bilaterally Fabere test= positive Right , and positive LT . Sever tenderness over the Sacroiliac joint on the Right , and Left sides Severe tenderness over the left trochanteric bursa Assessment and Plan Plan: chronic low back pain secondary to lumbar failed back surgery syndrome, bilateral sacroiliitis, left trochanteric bursitis Patient currently on [place] 5/325 twice a day Flexeril 5 daily at bedtime, and Advil 600 mg 3 times a day when necessary she is getting prescription refills from her primary care Patient denies any side effects of the current pain medication and the current treatment/medication helping the patient to do activity of daily living , Diagnoses, prognosis, treatment options, including but not limited to physical therapy, medication management, interventional therapies, and surgery, were discussed with the patient All the questions answered ,Patient will be good candidate to have caudal epidural steroid injection with lysis of epidural adhesions, at the same time ,we can do a left-sided trochanteric bursa steroid injections under fluoroscopy guidance Time with Patient: Less than 30 PQRS Measure Charge Sheet Measure #130: Documentation of Current Meds in Medical Chart: Patient's medications documented in chart Measure #226: Tobacco Use: Screen & Cessation Intervention: Pt not a tobacco user Measure #111: Pneumonia Vaccination: Pneumococcal vaccine administered or previously received Measure #47: Advance Care Plan: Advance care planning discussed & documented, pt chose/unable to give Measure #412: Opioid Treatment Agreement: No documentation of signed opioid treatment agreement Measure #408: Opioid Therapy Follow-up Evaluation: Patient had NO f/u eval minimum every 3 months during opioid therapy Measure #317: Preventitive Care & Scrn High Bld Press & F/U: Pre-hypertensive or hypertensive BP documented, pt will f/u with PCP Measure #128: Body Mass Index (BMI) Screening & Follow-up: BMI documented ABOVE normal parameters - f/u documented Measure #131: Pain Assessment & Follow-up: Pain positive & plan documented, Follow-up scheduled PQRS Narrative: Smoking Status Never smoker Narcotic Agreement Date Signed 10/16/18 Blood Pressure 155/85 Pain Intensity [Left Hip] 5 Pain Intensity [Back] 4 Scale Used Numeric (1 - 10) Hx Alcohol Use (MH) Yes: social Home Medications: Ambulatory Orders Loratadine [Claritin] 10 mg PO DAILY PRN 09/06/17 Calcium Carbonate [Calcium] 600 mg PO DAILY 09/12/17 Fluticasone Nasal [place] [Flonase Nasal [place]] 1 spray EA NOSTRIL DAILY PRN 09/12/17 Levothyroxine Sodium [Synthroid] 75 mcg PO QAM 09/12/17 Atorvastatin [Lipitor] 20 mg PO DAILY 06/26/18 Ibuprofen [Advil] 600 mg PO TID PRN 08/21/18 Aspirin EC [Ecotrin Low Dose] 81 mg PO BID #60 tablet.dr 02/11/19 Cyclobenzaprine [Flexeril] 5 mg PO HS 01/02/20 HYDROcodone/APAP 5-325MG [[place] 5-325] 1 tab PO BID PRN 01/02/20 Multivitamins, Thera [Multivitamin (formulary)] 1 tab PO DAILY 01/02/20 Omrprazole (Unknown Dose) 1 tab PO DAILY 01/02/20 Controlled Substance Measures - Controlled Substance Measures Is patient prescribed a controlled substance at discharge?: No
== END | disposition home or self-care (01) ==
LOC: PNWHC3 11:20
PROVIDERS: ATTEND Specialist
DX: M96.1 Postlaminectomy syndrome, not elsewhere classified (principal); M46.1 Sacroiliitis, not elsewhere classified; M70.62 Trochanteric bursitis, left hip; G89.29 Other chronic pain; Z79.891 Long term (current) use of opiate analgesic; Z79.899 Other long term (current) drug therapy; Z79.890 Hormone replacement therapy; Z79.82 Long term (current) use of aspirin
CPT/HCPCS: 99211

== ENCOUNTER 2020-01-28 07:56 | Day surgery (SDC) | payer MEDICARE, BC ==
[2020-01-24 14:30] VITALS: BMI 36.0
[~2020-01-28 07:56] MED LIST changes: -ACETAMINOPHEN TAB 500 MG TAB PO ONE; -DEXAMETHASONE SOD PHOSPHATE 10 MG/ML 1 ML VIAL IV ONE; -HYDROmorphone 0.5 MG/0.5 ML SYRINGE IVP PRN; +LACTATED RINGERS 1,000 ML IV SCH; -LIDOCAINE 1% 20 ML VIAL (10MG/ML) FOR IV START INTRADERMA PRN; -MELOXICAM 7.5 MG TAB PO ONE; -ONDANSETRON 4 MG/2 ML VIAL IVP PRN; -TRANEXAMIC ACID 1,000 MG in SODIUM CHLORIDE 0.9% 100 ML IVPB ONE; -VANCOMYCIN 1,250 MG in SODIUM CHLORIDE 0.9% 250 ML IVPB ONE
[2020-01-28 08:10] VITALS: RESP 16; TEMP 98.6
[2020-01-28] MEDS ORDERED: IOPAMIDOL M200 10 ML VIAL ONE (08:36)
[2020-01-28] MEDS ORDERED: methylPREDNISolone ACETATE 40 MG/ML 1 ML VIAL ONE (08:36)
[2020-01-28] MEDS ORDERED: ROPIVACAINE 5MG/ML 20ML VIAL ONE (08:36)
[2020-01-28] MEDS ORDERED: fentaNYL (PF) 50 MCG/ML 2 ML AMP ONE (08:36)
[2020-01-28] MEDS ORDERED: MIDAZOLAM 2 MG/2 ML VIAL ONE (08:36)
--- NOTE | 2020-01-28 09:06 | P.PCN ---
Date of Procedure: 01/28/20 Procedure(s) Performed: PREOP DIAGNOSIS: 1- Lumbar postlaminectomy syndrome. 2-left trochanteric bursitis POSTOP DIAGNOSIS:1- Lumbar postlaminectomy syndrome. 2-left trochanteric bursitis PROCEDURE: 1-Caudal epidural steroid injection with epidurolysis and epidurogram under fluoroscopic guidance. (Fluoroscopy images available in the radiology Department ) 2-caudal epidurogram. 3-left trochanteric bursa steroid injections under fluoroscopy guidance ANESTHESIA: Local with 1% lidocaine 3 ml ,and moderate sedation, with Versed 2 mg and fentanyl 150 g. EBL: Minimal. PROCEDURE INDICATION: The patient with post-laminectomy syndrome with low back pain and radiculopathy radiating down in both legs, here for a caudal epidural steroid injection with epidurolysis. PROCEDURE DESCRIPTION: The patient was seen and identified in the preoperative area. Risks, benefits, complications, and alternatives were discussed with the patient. The patient agreed to proceed with the procedure and signed the consent . IV was started, and vital signs were stable. Patient was taken to the OR and time out was completed. The patient was placed in the prone position on procedure table and a pillow was placed under the abdomen to reduce lumbar lordosis. The lumbosacral area was prepped and draped in the usual sterile fashion. Vital signs were closely monitored during the procedure. lateral view and the anterior-posterior plates of the sacrum were identified with infiltration of the area overlying the sacral hiatus with 1% lidocaine .A 17 gauge RK epidural needle was used to advance through the sacral hiatus into the caudal epidural space. Omnipaque 180 dye. 2cc was injected and the position of the needle was verified to be in the midline. A Racz catheter was introduced into the epidural space and was advanced towards the L5-S1 interspace under direct fluoroscopic guidance. Multiple passes were made with the catheter for lysis of epidural adhesions. Depo-Medrol 40 mg with 3ml of preservative free Lidocaine 1% and 5 ml of preservative free normal saline was injected slowly. Additional spread was seen to L5 under fluoroscopy. The needle and the catheter were withdrawn intact. EPIDUROGRAM: Omnipaque 180 mg dye 2 ml was injected with spread of the dye into the caudal epidural space and with spread cutoff at L5 prior to epidurolysis. Post epidurolysis dye 2 ml was injected and spread was seen to L5.There was no further spread of the solution together with the dye above the L5 secondary to the scar tissue Then after that the left trochanteric bursa and under sterile technique after the left hip area prepped with Betadine 3 then using 22-gauge spinal needle advanced slowly under fluoroscopy and placed in the left trochanteric bursa area, needle placement confirmed with AP and lateral view then after negative aspiration bupivacaine 0.5% mixed with 20 mg of Depo-Medrol injected and the left trochanteric bursa after negative aspiration patient tolerated the procedure well without any competitions COMPLICATIONS: None. DISPOSITION / PLANS: The patient was placed in a supine position and transferred to the recovery area in a stable condition for observation and was discharged from the recovery room after meeting discharge criteria. Home discharge instructions given to the patient by the staff. The patient was reexamined prior to discharge. The patient will schedule a follow up in the clinic in 2-4 weeks.
[2020-01-28] MEDS ORDERED: IV FLUID CONTINUATION 1,000 ML IV ONE (09:10)
--- NOTE | 2020-01-28 09:20 | FL ---
EXAMINATION TYPE: FL guided pain mgmt statistic DATE OF EXAM: 01/28/2020 HISTORY: Fluoroscopy time 15 seconds of fluoroscopy provided. IMPRESSION: 1. Fluoroscopy time.
[2020-01-28 09:32] VITALS: BP 173/94; PULSE 79
[2020-01-28] MEDS ORDERED: SODIUM CHLORIDE 0.9% (PF) 10 ML VIAL ONE (09:36)
== END 2020-01-28 09:51 | disposition home or self-care (01) ==
LOC: ORPAIN 07:56
PROVIDERS: ATTEND Specialist
DX: M70.62 Trochanteric bursitis, left hip (principal); M54.16 Radiculopathy, lumbar region; M96.1 Postlaminectomy syndrome, not elsewhere classified; Z88.2 Allergy status to sulfonamides; Z91.048 Other nonmedicinal substance allergy status
CPT/HCPCS: 20610; 62264; J2250; J1030; J3010; Q9966; J2795; C1894; 99152; 99153

== ENCOUNTER 2020-02-13 11:18 | Day surgery (SDC) | payer MEDICARE, BC ==
[2020-02-13 11:41] VITALS: TEMP 98.2
[2020-02-13] MEDS ORDERED: ROPIVACAINE 5MG/ML 20ML VIAL ONE (11:52)
[2020-02-13] MEDS ORDERED: fentaNYL (PF) 50 MCG/ML 2 ML AMP ONE (11:52)
[2020-02-13] MEDS ORDERED: IOPAMIDOL M200 10 ML VIAL ONE (11:52)
[2020-02-13] MEDS ORDERED: TRIAMCINOLONE ACETONIDE 40 MG/ML 1 ML VIAL ONE (11:52)
[2020-02-13] MEDS ORDERED: MIDAZOLAM 2 MG/2 ML VIAL ONE (11:52)
--- NOTE | 2020-02-13 12:18 | P.PCN ---
Date of Procedure: 02/13/20 Surgeon: Melvin Winslow Pathology: none sent Condition: stable Disposition: PACU Description of Procedure: PREOP DIAGNOSIS: 1- Lumbar postlaminectomy syndrome. 2-left trochanteric bur sitis POSTOP DIAGNOSIS:1- Lumbar postlaminectomy syndrome. 2-left trochanteric bursitis PROCEDURE: 1-Caudal epidural steroid injection with epidurolysis and epidurogram under fluoroscopic guidance. (Fluoroscopy images available in the radiology Department ) 2-caudal epidurogram. 3-left trochanteric bursa steroid injections under fluoroscopy guidance ANESTHESIA: Local with 1% lidocaine; IV moderate conscious sedation EBL: Minimal. PROCEDURE INDICATION: The patient with post-laminectomy syndrome with low back pain and radiculopathy radiating down in both legs, here for a caudal epidural steroid injection with epidurolysis. PROCEDURE DESCRIPTION: The patient was seen in the preoperative holding area consent was obtained then he was brought into the procedure room and placed in prone position. Skin was prepped with ChloraPrep and draped in a sterile manner. Lidocaine 1% was used to numb the skin up at the target point that was chosen as follows: The lateral view of fluoroscopy was used to identify the sacral hiatus and then after localizing the skin with lidocaine 1% I used 18- gauge epidural needle with a plastic sheath to go through the sacral hiatus and into the sacral canal and then injected 1 mL of Omnipaque for verification of needle tip position. After that the metal core of the needle was taken out and the plastic sheath was kept in the sacral canal. Then Racz catheter was introduced through the plastic sheath and into the epidural space at the sacral canal using the AP view of fluoroscopy up to L5-S1 level then I injected 2 MLS of Omnipaque which showed spread in the epidural space and after few back and forth movements of the Racz catheter I injected 40 mg of Kenalog +2 MLS of Ropivacaine 0.5% +7 MLS of preservative-free normal saline to a total volume of 10 MLS in the epidural space. Patient tolerated procedure well. Left Greater Trochanter steroid injection:I used 22-gauge 5 inch Quincke spinal needle to go through the skin and to contact the bone and the middle of the right greater trochanter using x-ray guidance. I then injected 20 mg of Kenalog with 5 mg of ropivacaine 0.5%. Patient tolerated procedure well. A copy of the needle placement x-ray picture was saved to the C-arm machine. COMPLICATIONS: None. DISPOSITION / PLANS: The patient was placed in a supine position and transferred to the recovery area in a stable condition for observation and was discharged from the recovery room after meeting discharge criteria. Home discharge instructions given to the patient by the staff. The patient was reexamined prior to discharge. The patient will schedule a follow up in the clinic in 2-4 weeks.
[2020-02-13] MEDS ORDERED: IV FLUID CONTINUATION 1,000 ML IV ONE (12:24)
--- NOTE | 2020-02-13 12:31 | FL ---
Fluoroscopy INDICATION: Pain FINDINGS: Fluoroscopy time: 33 seconds. Images obtained: 0. IMPRESSIONS: 1. Documentation of fluoroscopy.
[2020-02-13 12:32] VITALS: RESP 20
[2020-02-13 12:49] VITALS: BP 149/88; PULSE 78
== END 2020-02-13 13:12 | disposition home or self-care (01) ==
LOC: ORPAIN 11:18
PROVIDERS: ATTEND Anesthesiology
DX: M96.1 Postlaminectomy syndrome, not elsewhere classified (principal); M70.62 Trochanteric bursitis, left hip; K21.9 Gastro-esophageal reflux disease without esophagitis; Z88.1 Allergy status to other antibiotic agents; Z88.2 Allergy status to sulfonamides
CPT/HCPCS: 20610; 62264; J2250; J3301; J3010; Q9966; J2795; C1894; 99152

== ENCOUNTER → 2020-03-18 | Outpatient (CLI) | payer MEDICARE, BC ==
[2020-03-18 09:47] VITALS: BP 132/80; PULSE 104; RESP 20; TEMP 97.8
--- NOTE | 2020-03-18 09:58 | P.PAINPG ---
Subjective Progress Note Date: 03/18/20 Subjective This is follow-up visit for this 70 years old female with a history of severe and chronic low back pain secondary to lumbar postlaminectomy pain syndrome, most recently had caudal epidural with LUCA on 12/2019 and 01/2020 with left GT bursa injection.. Of note she has had SI joint injections in the past as well as RFA of L and R SI joints. She also had a left hip replacement with revision. Returns for follow up today. Overall she feels like the procedure did help a little bit with her pain but is not take all the way. Pain is located in the low back and radiation to the left hip worse with activity and interferes with her quality of life and ability to ambulate. She has think that the injections did help with her overall functionality but she still feels like there is room to improve. She is planning on going to [place] in the end of March and is wondering if there is anything else we had to offer her. The patient currently on [place] 5/325 twice a day, and Motrin 600 mg when necessary every 8 hours, Flexeril 10 mg daily at bedtime, he is getting prescription refills from her primary care Patient denies any side effect of the medication , patient denies any excessive drowsiness or sleepiness, patient denies any suicidal ideation, Patient reported that the current medication is helping to control the pain and improve the activity of daily livings, Patient denies any motor or sensory deficit, denies any change in the bowel movement or urination, patient denies any fever or night sweats. Objective - Exam Physical Examinations : -Constitutiona : Cooperative , not in acute distress . -HEENT : nech : supple , no Lymphadenopathy , normal thyroid size . : eyes : no ptosis , no icterus, no photophobia . - neurologic : Cranial nerve II to XII intact , no focal neurological deffecit . -psychatric : alert , oriented X 3 , appropriate affect , intact judgment and insight . -Lymphatic : no Lymphadenopathy . - musculoskeltal : Lumber spine motor strength lower extremities ,thigh and legs 5/5 Right side , 5/5 Left side deep tendon reflexes : normal Knee Jerk , normal ankle Jerk lumber facet Loading Test =positive Right , positive Left Range of motion of the lumbar spine Flexion 30 degrees, extension 10 degrees strait leg raising test = positive at 30 degree bilaterally Parvez test= positive Right , and positive LT . Sever tenderness over the Sacroiliac joint on the Right , and Left sides Severe tenderness over the left trochanteric bursa Assessment and Plan Plan: chronic low back pain secondary to lumbar failed back surgery syndrome, bilateral sacroiliitis, left trochanteric bursitis Patient currently on [place] 5/325 twice a day Flexeril 5 daily at bedtime, and Advil 600 mg 3 times a day when necessary she is getting prescription refills from her primary care Patient denies any side effects of the current pain medication and the current treatment/medication helping the patient to do activity of daily living , Diagnoses, prognosis, treatment options, including but not limited to physical therapy, medication management, interventional therapies, and surgery, were discussed with the patient All the questions answered. At this point she has had 2 steroid injections in December and January of this year. I educated her given that she had multiple hip surgeries with revisions steroid injections so close together are not a good idea. This will increase her risk of complications such as osteoporosis and increased blood sugar. We did discuss SI joint injections but she says it is not helping as much as the caudals in the past. I told her that we can repeat her caudal injection in May if needed, this would be about 3 months out from her last injection. She'll follow up as needed. Time with Patient: Less than 30 PQRS Measure Charge Sheet Measure #130: Documentation of Current Meds in Medical Chart: Patient's medications documented in chart Measure #226: Tobacco Use: Screen & Cessation Intervention: Pt not a tobacco user Measure #111: Pneumonia Vaccination: Pneumococcal vaccine administered or previously received Measure #47: Advance Care Plan: Advance care planning discussed & documented, pt chose/unable to give Measure #412: Opioid Treatment Agreement: No documentation of signed opioid treatment agreement Measure #408: Opioid Therapy Follow-up Evaluation: Patient had NO f/u eval minimum every 3 months during opioid therapy Measure #317: Preventitive Care & Scrn High Bld Press & F/U: Pre-hypertensive or hypertensive BP documented, pt will f/u with PCP Measure #128: Body Mass Index (BMI) Screening & Follow-up: BMI documented ABOVE normal parameters - f/u documented Measure #131: Pain Assessment & Follow-up: Pain positive & plan documented, Follow-up scheduled PQRS Narrative: Smoking Status Never smoker Narcotic Agreement Date Signed 10/16/18 Blood Pressure 155/85 Pain Intensity [Left Hip] 5 Pain Intensity [Back] 4 Scale Used Numeric (1 - 10) Hx Alcohol Use (MH) Yes: social Controlled Substance Measures - Controlled Substance Measures Is patient prescribed a controlled substance at discharge?: No PQRS Measure Charge Sheet PQRS Narrative: Smoking Status Never smoker Narcotic Agreement Date Signed 10/16/18 Pain Intensity [Lower Back] 6 Scale Used Numeric (1 - 10) Hx Alcohol Use (MH) Yes: social Home Medications: Ambulatory Orders Loratadine [Claritin] 10 mg PO DAILY PRN 09/06/17 Calcium Carbonate [Calcium] 600 mg PO DAILY 09/12/17 Fluticasone Nasal [place] [Flonase Nasal [place]] 1 spray EA NOSTRIL DAILY PRN 09/12/17 Levothyroxine Sodium [Synthroid] 75 mcg PO QAM 09/12/17 Atorvastatin [Lipitor] 20 mg PO DAILY 06/26/18 Ibuprofen [Advil] 600 mg PO TID PRN 08/21/18 Cyclobenzaprine [Flexeril] 5 mg PO HS 01/02/20 HYDROcodone/APAP 5-325MG [[place] 5-325] 1 tab PO BID PRN 01/02/20 Multivitamins, Thera [Multivitamin (formulary)] 1 tab PO DAILY 01/02/20 Omeprazole 20 mg PO DAILY 01/24/20 Aspirin EC [Ecotrin Low Dose] 81 mg PO DAILY 02/11/20 Oxybutynin Chloride [Ditropan XL] 10 mg PO DAILY 03/12/20 Controlled Substance Measures - Controlled Substance Measures Is patient prescribed a controlled substance at discharge?: No
== END | disposition home or self-care (01) ==
LOC: PNWHC3 09:37
PROVIDERS: ATTEND Anesthesiology
DX: M96.1 Postlaminectomy syndrome, not elsewhere classified (principal); M46.1 Sacroiliitis, not elsewhere classified; M70.62 Trochanteric bursitis, left hip; G89.29 Other chronic pain; Z79.891 Long term (current) use of opiate analgesic; Z79.899 Other long term (current) drug therapy; Z79.890 Hormone replacement therapy; Z79.82 Long term (current) use of aspirin
CPT/HCPCS: 99211

== ENCOUNTER → 2020-10-20 | Outpatient (CLI) | payer MEDICARE, BC ==
--- NOTE | 2020-10-20 16:57 | US ---
EXAMINATION TYPE: US venous doppler duplex LE LT DATE OF EXAM: 10/20/2020 2:15 PM COMPARISON: NONE CLINICAL HISTORY: I82.402 DVT OF LEFT LEG. Intermittent left ankle swelling x couple years SIDE PERFORMED: Left TECHNIQUE: The lower extremity deep venous system is examined utilizing real time linear array sonog serjio with graded compression, doppler sonography and color-flow sonography. VESSELS IMAGED: Common Femoral Vein Deep Femoral Vein Greater Saphenous Vein * Femoral Vein Popliteal Vein Small Saphenous Vein * Proximal Calf Veins (* superficial vessels) Left Leg: Appears negative for DVT IMPRESSION: No evidence of deep vein thrombosis in the left leg.
== END | disposition home or self-care (01) ==
LOC: RADUSWWP 13:26
PROVIDERS: ATTEND Internal Medicine Geriatric Medicine
DX: I82.402 Acute embolism and thrombosis of unspecified deep veins of left lower extremity (principal)

== ENCOUNTER → 2021-02-10 | Outpatient (CLI) | payer MEDICARE, BC ==
[2021-02-10 10:44] VITALS: BP 121/69; PULSE 90; RESP 18
--- NOTE | 2021-02-10 15:31 | P.PN ---
Subjective Progress Note Date: 02/10/21 This is follow-up visit for this 71 years old female with a history of severe and chronic low back pain ,she is diagnosed with lumbar postlaminectomy pain syndrome, Bilateral sacroiliitis, currently she is complaining of severe low back pain with radiation into the left hip area, pain intensity increased with any activity and interferes with her quality of life and her ability to ambulate The patient currently on [place] 5/325 twice a day, and Motrin 600 mg when necessary every 8 hours, Flexeril 10 mg daily at bedtime, she is getting prescription refills from her primary care Patient denies any side effect of the medication , patient denies any excessive drowsiness or sleepiness, patient denies any suicidal ideation, Patient reported that the current medication is helping to control the pain and improve the activity of daily livings, Patient denies any motor or sensory deficit, denies any change in the bowel movement or urination, patient denies any fever or night sweats. Physical Examinations : -Constitutiona : Cooperative , not in acute distress . -HEENT : nech : supple , no Lymphadenopathy , normal thyroid size . : eyes : no ptosis , no icterus, no photophobia . - neurologic : Cranial nerve II to XII intact , no focal neurological deffecit . -psychatric : alert , oriented X 3 , appropriate affect , intact judgment and insight . -Lymphatic : no Lymphadenopathy . - musculoskeltal : Lumber spine moter stegnth lower extremities ,thigh and legs 5/5 Right side , 5/5 Left side deep tendon reflexes : normal Knee Jerk , normal ankle Jerk lumber facet Loading Test =positive Right , positive Left Range of motion of the lumbar spine Flexion 30 degrees, extension 10 degrees strait leg raising test = positive at 30 degree bilaterally Fabere test= positive Right , and positive LT . Sever tenderness over the Sacroiliac joint on the Right , and Left sides Severe tenderness over the left trochanteric bursa Assessment and Plan chronic low back pain secondary to lumbar failed back surgery syndrome, bilateral sacroiliitis, left trochanteric bursitis Patient currently on [place] 5/325 twice a day Flexeril 5 daily at bedtime, and Advil 600 mg 3 times a day when necessary she is getting prescription refills from her primary care Patient denies any side effects of the current pain medication and the current treatment/medication helping the patient to do activity of daily living , Diagnoses, prognosis, treatment options, including but not limited to physical therapy, medication management, interventional therapies, and surgery, were discussed with the patient All the questions answered ,Patient will be good candidate to have caudal epidural steroid injection with lysis of epidural adhesions Time with Patient: Less than 30 - PQRS measures = - Patient's medications are documented in the chart. -Tobacco use is negative and counseling.Given. -Patient's has not received pneumococcal vaccine. -Advanced care planning discussed, patient not eligible. -Opiate contract not signed. -Pain positive and follow-up visit/procedure is scheduled. -Patient's blood pressure measured [121/69 ] , and documented in the record ,and patient will follow up with the primary care. -Patient's weight was measured and body mass index [ 34.3 ] above the,normal limits and counseling was done. and patient instructed to follow-up with the primary care physician. -Patient was not identified as an unhealthy alcohol user Objective - Vital Signs Vital signs: Vital Signs Temp Pulse 90 02/10/21 10:30 Resp 18 02/10/21 10:30 BP 121/69 02/10/21 10:30 Pulse Ox 98 02/10/21 10:30 Intake & Output 02/09/21 02/10/21 02/10/21 18:59 06:59 18:59 Weight 90.718 kg
== END ==
LOC: PNWHC3 10:22
PROVIDERS: ATTEND Specialist
DX: M96.1 Postlaminectomy syndrome, not elsewhere classified (principal); M46.1 Sacroiliitis, not elsewhere classified; M70.62 Trochanteric bursitis, left hip; G89.29 Other chronic pain; Z88.2 Allergy status to sulfonamides; Z88.1 Allergy status to other antibiotic agents; Z91.048 Other nonmedicinal substance allergy status
CPT/HCPCS: 99211

== ENCOUNTER 2021-02-12 13:17 | Day surgery (SDC) | payer MEDICARE, BC ==
[2021-02-12 13:30] VITALS: TEMP 98
[2021-02-12] MEDS ORDERED: LACTATED RINGERS 1,000 ML IV ONE (13:35)
[2021-02-12] MEDS ORDERED: MIDAZOLAM 2 MG/2 ML VIAL ONE (13:40)
[2021-02-12] MEDS ORDERED: fentaNYL (PF) 50 MCG/ML 2 ML AMP ONE (13:40)
[2021-02-12] MEDS ORDERED: IOPAMIDOL M200 10 ML VIAL ONE (13:40)
[2021-02-12] MEDS ORDERED: methylPREDNISolone ACETATE 40 MG/ML 1 ML VIAL ONE (13:40)
[2021-02-12] MEDS ORDERED: IV FLUID CONTINUATION 1,000 ML IV ONE (14:14)
--- NOTE | 2021-02-12 14:19 | P.PCN ---
Date of Procedure: 02/12/21 Procedure(s) Performed: PREOP DIAGNOSIS: 1- Lumbar postlaminectomy syndrome. POSTOP DIAGNOSIS:1- Lumbar postlaminectomy syndrome. PROCEDURE: 1-Caudal epidural steroid injection with attempted epidurolysis , under fluoroscopic guidance. (procedure converted to caudal epidural steroid injection only) 2-caudal epidurogram. (Fluroscopy image available at radiology department ) ANESTHESIA: Monitered anesthesia care . EBL: Minimal. PROCEDURE INDICATION: The patient with post-laminectomy syndrome with low back pain and radiculopathy radiating down in both legs, here for a caudal epidural steroid injection with epidurolysis. PROCEDURE DESCRIPTION: The patient was seen and identified in the preoperative area. Risks, benefits, complications, and alternatives were discussed with the patient. The patient agreed to proceed with the procedure and signed the consent. IV was started, and vital signs were stable. Patient was taken to the OR and time out was completed. The patient was placed in the prone position on procedure table and a pillow was placed under the abdomen to reduce lumbar lordosis. The lumbosacral area was prepped and draped in the usual sterile fashion. Vital signs were closely monitored during the procedure. lateral view and the anterior-posterior plates of the sacrum were identified with infiltration of the area overlying the sacral hiatus with 1% lidocaine .A 17 gauge RK epidural needle was used to advance through the sacral hiatus into the caudal epidural space. Omnipaque 180 dye. 2cc was injected and the position of the needle was verified to be in the midline. A Racz catheter was introduced into the epidural space and was advanced towards the L5-S1 interspace under direct fluoroscopic guidance. I Was not able to do the lysis of adhesions, because I was not able to pass the Racz catheter above the sacral area, even though multiple attempts and on to do that lysis of adhesions was not successful ,then the lysis of adhesion was not done and and I did only the caudal epidural steroid injection. then Depo-Medrol 60 mg with 3ml of preservative free Lidocaine 1% and 5 ml of preservative free normal saline was injected slowly. The needle and the catheter were withdrawn intact. EPIDUROGRAM: Omnipaque 180 mg dye 2 ml was injected with spread of the dye into the caudal epidural space COMPLICATIONS: None. DISPOSITION / PLANS: The patient was placed in a supine position and transferred to the recovery area in a stable condition for observation and was discharged from the recovery room after meeting discharge criteria. Home discharge instructions given to the patient by the staff. The patient was reexamined prior to discharge. The patient will schedule a follow up in the clinic in 2-4 weeks.
--- NOTE | 2021-02-12 14:26 | FL ---
EXAMINATION TYPE: FL guided pain mgmt statistic DATE OF EXAM: 02/12/2021 CLINICAL HISTORY: Sacral pain. TECHNIQUE: Fluoroscopy. COMPARISON: None. FINDINGS: Fluoroscopic guidance was provided during pain relief procedure performed by Dr. Humphreys . A total of 11 seconds of fluoroscopic time was utilized during the procedure and 3 spot images are acquired. Images acquired shows needle localization at level of the sacrum. IMPRESSION: As Above.
[2021-02-12 14:33] VITALS: BP 120/74; PULSE 75; RESP 16
== END 2021-02-12 14:54 | disposition home or self-care (01) ==
LOC: ORPAIN 13:17
PROVIDERS: ATTEND Specialist
DX: M96.1 Postlaminectomy syndrome, not elsewhere classified (principal); M53.3 Sacrococcygeal disorders, not elsewhere classified
CPT/HCPCS: 62323; 62264; J2250; J1030; J3010; Q9966

== ENCOUNTER → 2021-03-22 | Outpatient (CLI) | payer MEDICARE, BC ==
[2021-03-22 11:56] VITALS: BP 127/77; PULSE 87; RESP 18; TEMP 98.1
--- NOTE | 2021-03-22 12:03 | P.PN ---
Subjective Progress Note Date: 03/22/21 This is follow-up visit for this 71 years old female with a history of severe and chronic low back pain ,she is diagnosed with lumbar postlaminectomy pain syndrome, Bilateral sacroiliitis, currently she is complaining of severe low back pain with radiation into the left hip area, pain intensity increased with any activity and interferes with her quality of life and her ability to ambulate The patient currently on [place] 5/325 twice a day, and Motrin 600 mg when necessary every 8 hours, Flexeril 10 mg daily at bedtime, she is getting prescription refills from her primary care Patient denies any side effect of the medication , patient denies any excessive drowsiness or sleepiness, patient denies any suicidal ideation, Patient reported that the current medication is helping to control the pain and improve the activity of daily livings, Patient denies any motor or sensory deficit, denies any change in the bowel movement or urination, patient denies any fever or night sweats. Objective - Exam Physical Examinations : -Constitutiona : Cooperative , not in acute distress . -HEENT : nech : supple , no Lymphadenopathy , normal thyroid size . : eyes : no ptosis , no icterus, no photophobia . - neurologic : Cranial nerve II to XII intact , no focal neurological deffecit . -psychatric : alert , oriented X 3 , appropriate affect , intact judgment and insight . -Lymphatic : no Lymphadenopathy . - musculoskeltal : Lumber spine moter stegnth lower extremities ,thigh and legs 5/5 Right side , 5/5 Left side deep tendon reflexes : normal Knee Jerk , normal ankle Jerk lumber facet Loading Test =positive Right , positive Left Range of motion of the lumbar spine Flexion 30 degrees, extension 10 degrees strait leg raising test = positive at 25 degree Fabere test= positive Right , and positive LT . Sever tenderness over the Sacroiliac joint on the Right , and Left sides Gaenslen test= positive right ,and positive left . Seated flexion test= positive right ,and positive Left . Distraction test= positive bilaterally Sacroiliac compression test= positive bilaterally Assessment and Plan Assessment: Assessment and plan Assessment: Lumbar post laminectomy syndrome Plan: Patient could benefit from repeat caudal epidural injection Dr. Humphreys was available by phone for consultation during his visit. I have spent 23 minutes on patient care today. The time was used to review the medical records including relevant urine studies and Prescription history (MAPs), review of the available imaging, evaluation and examination of the patient, coordination of care with the medical staff and if applicable referring physicians, as well as creation of the medical record. - PQRS measures = - Patient's medications are documented in the chart. -Tobacco use is negative -Patient's has received pneumococcal vaccine. -Advanced care planning discussed, patient not eligible. -Opiate contract not signed. -Pain positive and follow-up visit/procedure is scheduled. -Patient's blood pressure measured 127/77 , and documented in the record ,and patient will follow up with the primary care. -Patient was not identified as an unhealthy alcohol user Time with Patient: Less than 30
== END ==
LOC: PNWHC3 11:18
PROVIDERS: ATTEND Student in an Organized Health Care Education/Training Program
DX: M96.1 Postlaminectomy syndrome, not elsewhere classified (principal); Z88.2 Allergy status to sulfonamides; Z91.048 Other nonmedicinal substance allergy status; Z88.1 Allergy status to other antibiotic agents
CPT/HCPCS: 99211

== ENCOUNTER 2021-04-20 10:11 | Day surgery (SDC) | payer MEDICARE, BC ==
[2021-04-16 14:49] VITALS: BMI 34.9
[2021-04-20] MEDS ORDERED: LIDOCAINE 1% (10MG/ML) FOR IV START INTRADERMA ONE (10:55)
[2021-04-20] MEDS ORDERED: LACTATED RINGERS 1,000 ML IV SCH (11:00)
[2021-04-20 11:01] VITALS: TEMP 97.2
[2021-04-20] MEDS ORDERED: IOPAMIDOL M200 10 ML VIAL ONE (11:15)
[2021-04-20] MEDS ORDERED: fentaNYL (PF) 50 MCG/ML 2 ML AMP ONE (11:15)
[2021-04-20] MEDS ORDERED: ROPIVACAINE 5MG/ML 20ML VIAL ONE (11:15)
[2021-04-20] MEDS ORDERED: methylPREDNISolone ACETATE 40 MG/ML 1 ML VIAL ONE (11:15)
[2021-04-20] MEDS ORDERED: MIDAZOLAM 2 MG/2 ML VIAL ONE (11:15)
[2021-04-20] MEDS ORDERED: IV FLUID CONTINUATION 500 ML IV ONE (12:10)
--- NOTE | 2021-04-20 12:18 | FL ---
Fluoroscopy HISTORY: Pain 52 seconds fluoroscopy time supplied to the referring clinician. 3 intraoperative C-arm images docum ent the procedure. See dictated report from anesthesia.
[2021-04-20 12:19] VITALS: RESP 16
--- NOTE | 2021-04-20 12:37 | P.PCN ---
Date of Procedure: 04/20/21 Description of Procedure: PREOPERATIVE DIAGNOSIS: Lumbar post laminectomy syndrome, and lumbar r adiculopathy. POSTOPERATIVE DIAGNOSIS: Lumbar post laminectomy syndrome, and lumbar radiculopathy. PROCEDURE: 1. Caudal epidural steroid injection under fluoroscopic guidance. 2. Caudal epidurogram. 3. Attempted caudal epidural with RACZ catheter SURGEON: Alice Magaña ANESTHESIA: Local with 1% lidocaine; IV sedation : Versed and fentanyl EBL: None. Specimens removed: None Complications: None Fluoroscopic image: saved to electronic medical records PROCEDURE INDICATION: Patient had a history of lumbar postlaminectomy syndrome, failed with conservative therapy. pain radiating distally returns for caudal epidural steroid injection. PROCEDURE DESCRIPTION: The patient was seen and identified in the preoperative area. Risks, benefits, complications, and alternatives were discussed with the patient. The patient agreed to proceed with the procedure and signed the consent. IV was started, and vital signs were stable. Patient was taken to the OR and time out was completed. The patient was placed in the prone position on procedure table and a pillow was placed under the abdomen to reduce lumbar lordosis. The lumbosacral area was prepped with ChloraPrep 2 and draped in the usual sterile fashion. Critical pause was taken. Vital signs were closely monitored during the procedure. Using lateral fluoroscopy the anterior-posterior plates of the sacrum were identified and the skin and deeper tissues corresponding into sacrococcygeal ligament were anesthetized using approximately 5 mL mixture which contains 5 mL of 1% lidocaine mixed with 5 mL of 0.5% ropivacaine. A 17 gauge RK epidural needle was used to advance through the sacral hiatus into the caudal epidural space, not able to advance the needle on multiple attempts due to calcification , and Dr. Humphreys also tried to help in placing the needle , but was not successful . Then under fluoroscopy, a 3-1/2-inch 20-gauge Tuohy epidural needle was guided through the sacrococcygeal ligament, and into the epidural space. After negative aspiration, a 3 mL of [id number] contrast dye was injected with epidurogram. Again after negative aspiration for CSF, blood, and with no paresthesias, Depo-Medrol 80mg, with 10ml of preservative free normal saline(total of 11ml) solution was injected with washout of epidurogram. Needle was withdrawn intact. Skin was cleansed, and bandage was applied. DISPOSITION / PLANS: The patient was placed in a supine position and transferred to the recovery area in a stable condition for observation and was discharged from the recovery room after meeting discharge criteria. Home discharge instructions given to the patient by the staff. In the recovery details about the procedure discussed with patient, and with Mr. Haas. The patient was reexamined prior to discharge. The patient will schedule a follow up in the clinic in 4 weeks.
[2021-04-20 12:54] VITALS: BP 117/77; PULSE 80
== END 2021-04-20 13:05 | disposition home or self-care (01) ==
LOC: ORPAIN 10:11
DX: M96.1 Postlaminectomy syndrome, not elsewhere classified (principal); M54.16 Radiculopathy, lumbar region
CPT/HCPCS: 62323; J2250; J1030; J2001; J3010; Q9966; J2795; C1894; 99152; 99153

== ENCOUNTER → 2021-06-30 | Outpatient (CLI) | payer MEDICARE, BC ==
--- NOTE | 2021-06-30 13:22 | P.PN ---
Subjective Progress Note Date: 06/30/21 (.) Principal diagnosis: A 71 yr old female with a history of severe and chronic low back pain secondary to lumbar degenerative disc diseases and lumbar spondylosis with facet arthropathy presents today for evaluation status post caudal YENIFER with lysis in March,. She states she experienced 80% pain relief for one months status post procedure. Pain level is currently at 9 out of 10 in intensity, dull, achy in the tailbone area with accompanying muscle spasms in the left paraspinal muscles. Pain is provoked by walking forward 20 minutes or standing for 30 minutes or more. Pain is alleviated with medications, topicals, injections, heating pad use, repositioning, stretching at home and rest. Interventional pain procedures completed include [place] YENIFER with lysis left trochanteric joint injection, right SI joint joint RFA Patient is currently on [place], Advil, Voltaren gel Patient denies any side effects of the medication(s), denies excessive drowsiness or sleepiness, denies suicidal ideation and reports that the current pain medication is helping to control the pain and improve activities of daily living. Patient denies any motor or sensory deficits. Patient denies any fever or night sweats, denies any change in the bowel movements or urination. Physical Examination: -Constitutional: Cooperative. Not in acute distress . -HEENT: Neck is supple. No lymphadenopathy. No thyromegaly. Normal thyroid size. Eyes: No ptosis , no icterus, no photophobia. ENT: No auditory deficits. Normal oropharynx. No Thrush. - Respiratory: Chest clear to auscultations bilaterally. No wheezing. No rhonchi. - Cardiovascular: Regular rate and rhythm. S1 / S2 , no S3 , no S4. - Gastrointestinal: Abdomen soft no tenderness. Bowel sounds positive in all four quadrants. No organomegaly. - Genitourinary: Deferred. - Neurologic: Cranial nerve II to XII intact. No focal neurological deficits. - Psychatric: Alert & oriented x 3. Matching mood & appropriate affect. Judgment and insight intact. - Lymphatic: No Lymphadenopathy. - Musculoskeletal: Cervical spine: Muscle bulk/ tone/ strength in the bilateral upper extremities normal. Facet loading test cervical area positive. Lumbar spine: Motor bulk/ tone/ strength lower extremities , thigh and legs : 5/5 Deep tendon reflexes : Normal Knee Jerk. Normal Ankle Jerk . Vertebral body tenderness to palpation over Lumbar Facet Loading Test positive Straight Leg Raise: positive at 30 degrees right side/ left side Gaenslen's Test positive Sacral spine : Severe tenderness over the Sacroiliac joint: right side / left side Range of motion: Flexion of the lumbar spine <60 degrees Range of motion: Extension of the lumbar spine <20 degrees Gaenslen's Test positive Parvez test: positive right side / left side Assessment and plan: Chronic low back pain secondary to lumbar degenerative disc disease , lumbar spondylosis with facet arthropathy without myelopathy Recommendation of caudal YENIFER with lysis #2 and TPI of the left L3 to L5 paraspinal muscles Risks, benefits of procedure discussed and patient verbalized understanding Denies anticoagulants use. Denies medical history of diabetes mellitus. All patient questions answered MAPS reviewed and it was appropriate. I have spent 31 minutes on patient care today. Dr Humphreys was available by phone for the evaluation of this patient. The time was used to review the medical records including relevant urine studies and Prescription history (MAPs), review of the available imaging, evaluation and examination of the patient, coordination of care with the medical staff and if applicable referring physicians, as well as creation of the medical record PQRS Measure Charge Sheet PQRS Narrative: Smoking Status Never smoker Narcotic Agreement Date Signed 10/16/18 Hx Alcohol Use (MH) Yes: social Home Medications: Ambulatory Orders Loratadine [Claritin] 10 mg PO DAILY PRN 09/06/17 Calcium Carbonate [Calcium] 600 mg PO DAILY 09/12/17 Fluticasone Nasal [place] [Flonase Nasal [place]] 1 spray EA NOSTRIL DAILY PRN 09/12/17 Levothyroxine Sodium [Synthroid] 75 mcg PO QAM 09/12/17 Atorvastatin [Lipitor] 20 mg PO DAILY 06/26/18 Ibuprofen [Advil] 600 mg PO TID PRN 08/21/18 Cyclobenzaprine [Flexeril] 5 mg PO HS 01/02/20 HYDROcodone/APAP 5-325MG [[place] 5-325] 1 tab PO BID PRN 01/02/20 Multivitamins, Thera [Multivitamin (formulary)] 1 tab PO DAILY 01/02/20 Omeprazole 20 mg PO DAILY 01/24/20 Aspirin EC [Ecotrin Low Dose] 81 mg PO DAILY 02/11/20 Triamterene-Hctz 37.5-25Mg [Dyazide 37.5-25 Capsule] 1 cap PO DAILY 03/22/21
[2021-06-30 13:24] VITALS: BP 127/74; PULSE 95; RESP 18; TEMP 98.1
== END ==
LOC: PNWHC3 12:51
PROVIDERS: ATTEND Physician Assistant Medical
DX: G89.29 Other chronic pain (principal); M51.36 Other intervertebral disc degeneration, lumbar region; M47.816 Spondylosis without myelopathy or radiculopathy, lumbar region; Z88.2 Allergy status to sulfonamides; Z91.048 Other nonmedicinal substance allergy status; Z88.1 Allergy status to other antibiotic agents
CPT/HCPCS: 99211

== ENCOUNTER → 2021-08-16 | Outpatient (CLI) | payer MEDICARE, BC ==
[2021-08-16 12:49] VITALS: BP 122/78; PULSE 81; RESP 18; TEMP 97.9
--- NOTE | 2021-08-16 13:11 | P.PN ---
Subjective Progress Note Date: 08/16/21 Principal diagnosis: A 71 yr old female with a history of severe and chronic low back pain secondary to lumbar degenerative disc diseases and lumbar spondylosis with facet arthropathy presents today for evaluation status post caudal YENIFER with lysis and bilateral TPI L3-5. Patient states she experienced 90% pain relief for 4 weeks status post procedure. Patient states that pain started to return at 7 out of 10 in intensity while she was making Easter dinner preparations 1 day ago. Pain is constant, sore in the lower aspects of the lumbar spine with radiation of pain to the left tailbone and posterior aspect of left lower extremity greater than the right. Pain is provoked by standing and walking for periods of 15 minutes or bending. Pain is alleviated with medications, topicals, injections, heat, physical therapy years ago which was ineffective, home-based stretching regimen, laying supine with legs elevated and rest. Interventional pain procedures completed include Caudal YENIFER with lysis x 2. BL TPI L3-5 x 1. Patient is currently on [place] and Ibuprofen. Patient denies any side effects of the medication(s), denies excessive drowsiness or sleepiness, denies suicidal ideation and reports that the current pain medication is helping to control the pain and improve activities of daily living. Patient denies any motor or sensory deficits. Patient denies any fever or night sweats, denies any change in the bowel movements or urination. Physical Examination: -Constitutional: Cooperative. Not in acute distress . -HEENT: Neck is supple. No lymphadenopathy. No thyromegaly. Normal thyroid size. Eyes: No ptosis , no icterus, no photophobia. ENT: No auditory deficits. Normal oropharynx. No Thrush. - Respiratory: Chest clear to auscultations bilaterally. No wheezing. No rhonchi. - Cardiovascular: Regular rate and rhythm. S1 / S2 , no S3 , no S4. - Gastrointestinal: Abdomen soft no tenderness. Bowel sounds positive in all four quadrants. No organomegaly. - Genitourinary: Deferred. - Neurologic: Cranial nerve II to XII intact. No focal neurological deficits. - Psychatric: Alert & oriented x 3. Matching mood & appropriate affect. Judgment and insight intact. - Lymphatic: No Lymphadenopathy. - Musculoskeletal: Cervical spine: Muscle bulk/ tone/ strength in the bilateral upper extremities normal. Facet loading test cervical area positive. Lumbar spine: Motor bulk/ tone/ strength lower extremities , thigh and legs : 5/5 Deep tendon reflexes : Normal Knee Jerk. Normal Ankle Jerk . Vertebral body tenderness to palpation over Lumbar Facet Loading Test positive Straight Leg Raise: positive at 30 degrees right side/ left side Gaenslen's Test positive Sacral spine : Severe tenderness over the Sacroiliac joint: right side / left side Range of motion: Flexion of the lumbar spine <60 degrees Range of motion: Extension of the lumbar spine <20 degrees Gaenslen's Test positive Parvez test: positive right side < left side Assessment and plan: Chronic low back pain secondary to lumbar degenerative disc disease , lumbar spondylosis with facet arthropathy without myelopathy Recommendation of bilateral SI joint injection. May need a series of injections to obtain optimal pain relief. Risks, benefits of procedure discussed and patient verbalized understanding. Denies anticoagulant use. Denies medical history of diabetes. All patient questions answered MAPS reviewed and it was appropriate. I have spent 31 minutes on patient care today. Dr Humphreys was available by phone for the evaluation of this patient. The time was used to review the medical records including relevant urine studies and Prescription history (MAPs), review of the available imaging, evaluation and examination of the patient, coordination of care with the medical staff and if applicable referring physicians, as well as creation of the medical record Objective - Vital Signs Vital signs: Vital Signs Temp 97.9 F 08/16/21 12:41 Pulse 81 08/16/21 12:41 Resp 18 08/16/21 12:41 BP 122/78 08/16/21 12:41 Pulse Ox 97 08/16/21 12:41 PQRS Measure Charge Sheet Mode of Arrival: Ambulatory - Pain Location Lower Medial Back Non-Pharmacological Interventions: Heat, Inactivity, Sitting Pharmacological Interventions: Epidural, PRN Medication, Scheduled Medication, Topical Medication PQRS Narrative: Smoking Status Never smoker Narcotic Agreement Date Signed 10/16/18 Blood Pressure 122/78 Pain Intensity [Lower Medial 7 Back] Scale Used Numeric (1 - 10) Hx Alcohol Use (MH) Yes: social Home Medications: Ambulatory Orders Loratadine [Claritin] 10 mg PO DAILY PRN 09/06/17 Calcium Carbonate [Calcium] 600 mg PO DAILY 09/12/17 Fluticasone Nasal [place] [Flonase Nasal [place]] 1 spray EA NOSTRIL DAILY PRN 09/12/17 Levothyroxine Sodium [Synthroid] 75 mcg PO QAM 09/12/17 Atorvastatin [Lipitor] 20 mg PO DAILY 06/26/18 Ibuprofen [Advil] 600 mg PO TID PRN 08/21/18 Cyclobenzaprine [Flexeril] 5 mg PO HS 01/02/20 HYDROcodone/APAP 5-325MG [[place] 5-325] 1 tab PO BID PRN 01/02/20 Multivitamins, Thera [Multivitamin (formulary)] 1 tab PO DAILY 01/02/20 Omeprazole 20 mg PO DAILY 01/24/20 Aspirin EC [Ecotrin Low Dose] 81 mg PO DAILY 02/11/20 Triamterene-Hctz 37.5-25Mg [Dyazide 37.5-25 Capsule] 1 cap PO DAILY 03/22/21
== END ==
LOC: PNWHC3 12:21
PROVIDERS: ATTEND Specialist
DX: M51.36 Other intervertebral disc degeneration, lumbar region (principal); M47.816 Spondylosis without myelopathy or radiculopathy, lumbar region; G89.29 Other chronic pain; Z88.2 Allergy status to sulfonamides; Z91.048 Other nonmedicinal substance allergy status; Z88.1 Allergy status to other antibiotic agents
CPT/HCPCS: 99211

== ENCOUNTER 2021-09-07 06:13 | Day surgery (SDC) | payer MEDICARE, BC ==
[2021-09-07 06:49] VITALS: TEMP 98.3
[2021-09-07] MEDS ORDERED: LACTATED RINGERS 1,000 ML IV ONE (07:05)
[2021-09-07] MEDS ORDERED: methylPREDNISolone ACETATE 40 MG/ML 1 ML VIAL ONE (07:18)
[2021-09-07] MEDS ORDERED: MIDAZOLAM 2 MG/2 ML VIAL ONE (07:18)
[2021-09-07] MEDS ORDERED: fentaNYL (PF) 50 MCG/ML 2 ML AMP ONE (07:18)
[2021-09-07] MEDS ORDERED: ROPIVACAINE 5MG/ML 20ML VIAL ONE (07:18)
--- NOTE | 2021-09-07 07:36 | P.PCN ---
Date of Procedure: 09/07/21 Procedure(s) Performed: Procedure= bilateral sacroiliac joints steroid injection under fluoroscopy guidance (fluoroscopy image stored on file in the radiology Department ) Preoperative diagnosis= 1-sacroiliitis 2-lumbar degenerative disc disease 3- lumbar facet arthropathy Postoperative diagnosis=Same as preop Diagnosis . Complication = none Condition= stable Anesthesia= moderate sedation with intravenous Versed 2 mg , and fentanyl 100 micrograms . Indication for the procedure= patient complaining of low back pain , examination was positive for severe tenderness over the sacroiliac joints bilaterally and patient diagnosed with sacroiliitis, for this reason , she was good candidate for sacroiliac joint steroid injection. Description of the procedure= procedure risk and benefits discussed with the patient, including but not limited, risk of infection and bleeding, and ALLERGIC reaction to the medication and not complete pain relief and patient agreed with the preceding patient taken to the operating room, placed in prone position or standard monitors applied to the patient then after induction of anesthesia back prepped with chlorhexidine 3 times , Then under strict sterile technique, first I did the right sacroiliac joint the which was identified under fluoroscopy guidance been local infiltration of the skin and subcu interstitial with lidocaine 1% then 22-gauge [place] Needle advanced slowly under fluoroscopy and placed in the right sacroiliac joint needle placement confirmed with AP and oblique and lateral view and after appropriate needle placement confirmed and after negative aspiration, or heme , then Ropivacaine 0.5% 4 mL, and 40 mg of Depo-Medrol mixed together and injected in the right sacroiliac joint after negative aspiration patient tolerated the procedure well without any complication. Then the left sacroiliac joint steroid injection done under strict sterile technique local infiltration of the skin and subcu interstitial at the location of the left sacroiliac joint then a 22-gauge [place]ke Needle advanced slowly under fluoroscopy time placed in the left sacroiliac joint, needle placement confirmed with AP and oblique and lateral view then after appropriate needle placement confirmed and after negative aspiration 0.5% Ropivacaine 4 mL and 40 mg of Depo-Medrol injected in the left sacroiliac joint after negative aspiration patient tolerated the procedure well that any complications and she will follow up in clinic 3 weeks
[2021-09-07] MEDS ORDERED: IV FLUID CONTINUATION 1,000 ML IV ONE (07:42)
[2021-09-07 08:00] VITALS: BP 125/76; PULSE 85; RESP 18
--- NOTE | 2021-09-07 12:21 | FL ---
EXAMINATION TYPE: FL guided pain mgmt statistic DATE OF EXAM: 09/07/2021 CLINICAL HISTORY: Bilateral sacroiliac joint pain. TECHNIQUE: Fluoroscopy. COMPARISON: None. FINDINGS: Fluoroscopic guidance was provided during pain relief procedure performed by Dr. Humphreys . A total of 5 seconds of fluoroscopic time was utilized during the procedure and two spot images ar e acquired. Images acquired shows needle localization at inferior level of bilateral sacroiliac join ts. IMPRESSION: As Above.
== END 2021-09-07 08:12 | disposition home or self-care (01) ==
LOC: ORPAIN 06:13
PROVIDERS: ATTEND Specialist
DX: M46.1 Sacroiliitis, not elsewhere classified (principal); M51.36 Other intervertebral disc degeneration, lumbar region
CPT/HCPCS: G0260; J2250; J1030; J3010; J2795

== ENCOUNTER → 2021-09-29 | Outpatient (CLI) | payer MEDICARE, BC ==
[2021-09-29 11:39] VITALS: BP 124/79; PULSE 88; RESP 18
--- NOTE | 2021-09-29 11:56 | P.PN ---
Subjective Progress Note Date: 09/29/21 Principal diagnosis: A 71 yr old female with a history of severe and chronic low back pain secondary to lumbar degenerative disc diseases and lumbar spondylosis with facet arthropathy presents today for evaluation status post BL SI joint injection and lower back pain. She states she expressed 80% pain relief for 3 weeks status post procedure. Pain level is currently at 6 out of 10 in intensity, constant, achy in the lower aspects of her lumbar spine, left greater than right, with radiation of numbness and pain in the back of her legs. Pain is provoked by walking and lifting. Pain is alleviated with medications, topicals, injections, heat, physical therapy 3 years ago, use of a heating pad, repositioning and rest. Interventional pain procedures completed include Caudal YENIFER x 2, TPIs, BL SI RFA, BL SI injection x 1 Patient is currently on Ibuprofen, [place]. Patient denies any side effects of the medication(s), denies excessive drowsiness or sleepiness, denies suicidal ideation and reports that the current pain medication is helping to control the pain and improve activities of daily living. Patient denies any motor or sensory deficits. Patient denies any fever or night sweats, denies any change in the bowel movements or urination. Physical Examination: -Constitutional: Cooperative. Not in acute distress . -HEENT: Neck is supple. No lymphadenopathy. No thyromegaly. Normal thyroid size. Eyes: No ptosis , no icterus, no photophobia. ENT: No auditory deficits. Normal oropharynx. No Thrush. - Respiratory: Chest clear to auscultations bilaterally. No wheezing. No rhonchi. - Cardiovascular: Regular rate and rhythm. S1 / S2 , no S3 , no S4. - Gastrointestinal: Abdomen soft no tenderness. Bowel sounds positive in all four quadrants. No organomegaly. - Genitourinary: Deferred. - Neurologic: Cranial nerve II to XII intact. No focal neurological deficits. - Psychatric: Alert & oriented x 3. Matching mood & appropriate affect. Judgment and insight intact. - Lymphatic: No Lymphadenopathy. - Musculoskeletal: Cervical spine: Muscle bulk/ tone/ strength in the bilateral upper extremities normal Vertebral body tenderness to palpation over Facet loading test positive Thoracic spine Muscle bulk / tone/ strength in the bilateral paraspinal muscles normal Vertebral body tender to palpation over Facet loading test positive Lumbar spine: Motor bulk/ tone/ strength lower extremities , thigh and legs : 5/5 Deep tendon reflexes : Normal Knee Jerk. Normal Ankle Jerk . Vertebral body tenderness to palpation over Lumbar Facet Loading Test positive over BL L5-S1 with jump reflex Straight Leg Raise: positive at 30 degrees right side/ left side Gaenslen's Test positive Sacral spine : Severe tenderness over the Sacroiliac joint: right side / left side Range of motion: Flexion of the lumbar spine <60 degrees Range of motion: Extension of the lumbar spine <20 degrees Gaenslen's Test positive Wagner's Test positive Parvez test: positive right side / left side Thigh Thrust Test Sacral Thrust Test Assessment and plan: Chronic low back pain secondary to lumbar degenerative disc disease , lumbar spondylosis with facet arthropathy without myelopathy Recommendation of BL facet block of the medial branches L5-S1. May need a series of injections, up until RFA for optimal pain relief. Risks, benefits of procedure discussed and pt verbalized understanding. Denies anticoagulant use or medical history of diabetes. All patient questions answered MAPS reviewed and it was appropriate. I have spent 31 minutes on patient care today. Dr Humphreys was available by phone for the evaluation of this patient. The time was used to review the medical records including relevant urine studies and Prescription history (MAPs), review of the available imaging, evaluation and examination of the patient, coordination of care with the medical staff and if applicable referring physicians, as well as creation of the medical record Objective - Vital Signs Vital signs: Vital Signs Temp Pulse 88 09/29/21 11:22 Resp 18 09/29/21 11:22 BP 124/79 09/29/21 11:22 Pulse Ox 97 09/29/21 11:22 FiO2 Intake & Output 09/28/21 09/29/21 09/29/21 18:59 06:59 18:59 Weight 90.718 kg PQRS Measure Charge Sheet Mode of Arrival: Ambulatory - Pain Location Bilateral Lower Back Non-Pharmacological Interventions: Heat, Inactivity, Position/Reposition, Sitting, Stretching Pharmacological Interventions: PRN Medication, Scheduled Medication, Topical Medication PQRS Narrative: Smoking Status Never smoker Narcotic Agreement Date Signed 10/16/18 Blood Pressure 124/79 Pain Intensity [Bilateral 6 Lower Back] Scale Used Numeric (1 - 10) Hx Alcohol Use (MH) Yes: social Home Medications: Ambulatory Orders Loratadine [Claritin] 10 mg PO DAILY PRN 09/06/17 Calcium Carbonate [Calcium] 600 mg PO DAILY 09/12/17 Fluticasone Nasal [place] [Flonase Nasal [place]] 1 spray EA NOSTRIL DAILY PRN 09/12/17 Levothyroxine Sodium [Synthroid] 75 mcg PO QAM 09/12/17 Atorvastatin [Lipitor] 20 mg PO DAILY 06/26/18 Ibuprofen [Advil] 600 mg PO TID PRN 08/21/18 Cyclobenzaprine [Flexeril] 5 mg PO HS 01/02/20 HYDROcodone/APAP 5-325MG [[place] 5-325] 1 tab PO BID PRN 01/02/20 Multivitamins, Thera [Multivitamin (formulary)] 1 tab PO DAILY 01/02/20 Omeprazole 20 mg PO DAILY 01/24/20 Aspirin EC [Ecotrin Low Dose] 81 mg PO DAILY 02/11/20 Triamterene-Hctz 37.5-25Mg [Dyazide 37.5-25 Capsule] 1 cap PO DAILY 03/22/21
== END ==
LOC: PNWHC3 11:20
PROVIDERS: ATTEND Specialist
DX: M47.816 Spondylosis without myelopathy or radiculopathy, lumbar region (principal); M51.36 Other intervertebral disc degeneration, lumbar region; G89.29 Other chronic pain; Z88.2 Allergy status to sulfonamides; Z91.048 Other nonmedicinal substance allergy status; Z88.1 Allergy status to other antibiotic agents
CPT/HCPCS: 99211

== ENCOUNTER → 2021-10-06 | Outpatient (CLI) | payer MEDICARE, BC ==
--- NOTE | 2021-10-07 16:45 | BD ---
EXAMINATION TYPE: Axial Bone Density DATE OF EXAM: 10/06/2021 COMPARISON: 2019 CLINICAL HISTORY: 71 years year old Female. ICD-10 CODE: Z78.0 POST MENOPAUSAL WITHOUT HRT Height: 62.25 Weight: 208.5 FRAX RISK QUESTIONS: Alcohol (3 or more units per day): NO Family History (Parent hip fracture): NO Glucocorticoids (More than 3mos): NO History of Fracture in Adulthood: NO Secondary Osteoporosis: 1. Type 1 Diabetes: NO 2. Hyperthyroidism: NO 3. Menopause before 45: NO 4. Malnutrition: NO 5. Chronic liver disease: NO Rheumatoid Arthritis: NO Current Tobacco Use: NO RISK FACTORS HISTORY OF: Hip Fracture (Right/Left): NO Spine Fracture: NO History of Wrist Fracture: NO Surgery to Spine/Hip(right/left)/Wrist (right/left): LUMBAR 2012,LT HIP REPLACEMENT 2018, BILATERAL C ARPAL TUNNEL Family History of Osteoporosis: NO Active: YES Diet low in dairy products/other sources of calcium: NO Postmenopausal woman: YES Take estrogen and/or progesterone medications: NO Lost more than 2 inches in height since high school: YES Frequent falls:NO Poor Health: NO Hyperparathyroidism: NO Adrenal Insufficiency: NO MEDICATIONS: Prednisone or other steroids: NO Thyroid Medications: LEVOTHYROXINE How Lon YEARS Osteoporosis Medications: NO Additional Medications: REFLUX MEDS, LIPITOR, TRIAMTERENE Additional History: EXAM MEASUREMENTS: Bone mineral density about the R hip (g/cm2): 1.190 T Score values are as follows: -----R Neck: 1.1 -----R Total: 1.4 Bone mineral density has: DECREASED 5.1 % since study of: 10/05/2018 Bone mineral density about the L Wrist (g/cm2): 0.736 T Score values are as follows: -----Dist. R+U: 2.6 -----Prox. R+U: 0.7 -----Radius total: 1.3 Bone mineral density has: INCREASED 3.2% % since study of: 10/05/2018 FRAX%s: The graph provided illustrates a chance for a major osteoporotic fx and a chance for the hips probability for fx in 10 years time. IMPRESSION: Normal (Values between +1 and -1 indicate normal bone mass). Consider repeating this study in 5 year s or sooner if there is some new clinical indication. NOTE: T-SCORE=SD OF THE YOUNG ADULT MEAN.
== END | disposition home or self-care (01) ==
LOC: RADBDWWP 14:16
PROVIDERS: ATTEND Obstetrics & Gynecology
DX: Z78.0 Asymptomatic menopausal state (principal)
CPT/HCPCS: 77080

== ENCOUNTER → 2021-10-06 | Outpatient (CLI) | payer MEDICARE, BC ==
--- NOTE | 2021-10-11 17:37 | MM ---
Reason for Exam: Screening (asymptomatic). Last mammogram was performed 1 year(s) and 11 month(s) ago. Patient History: Menarche at age 12. First Full-Term at age 25. Hysterectomy at age 45. Postmenopausal. Estrogen, starting at age 48 for 15 years. 1987, Excisional Biopsy on the Left side. Sister had breast cancer, age 53. Risk Values: Melyssa 5 year model risk: 3.7%. NCI Lifetime model risk: 9.0%. Prior Study Comparison: 07/27/2017 Bilateral Screening Mammogram, [facility]. 10/05/2018 Bilateral Screening Mammogram, [facility]. 11/26/2019 Bilateral Screening Mammogram, [facility]. Tissue Density: There are scattered fibroglandular densities. Findings: Analyzed By CAD. No significant mass, suspicious microcalcification, or other discrete abnormality is seen. Overall Assessment: Negative, BI-RAD 1 Management: Screening Mammogram of both breasts in 1 year. 1. A clinical breast exam by your physician is recommended on an annual basis and results should be correlated with mammographic findings. 2. The patient should continue monthly self breast exams. 3. A negative mammogram should not preclude additional follow-up of suspicious palpable abnormalities. Electronically signed and approved by: Tino Oquendo M.D. Radiologist
== END | disposition home or self-care (01) ==
LOC: RADMAMWWP 14:14
PROVIDERS: ATTEND Obstetrics & Gynecology
DX: Z12.31 Encounter for screening mammogram for malignant neoplasm of breast (principal); Z78.0 Asymptomatic menopausal state; Z80.3 Family history of malignant neoplasm of breast
CPT/HCPCS: 77063; 77067

== ENCOUNTER 2021-10-29 07:37 | Day surgery (SDC) | payer MEDICARE, BC ==
[2021-10-28 09:12] VITALS: BMI 35.9
[~2021-10-29 07:37] MED LIST changes: +LIDOCAINE 1% (10MG/ML) FOR IV START INTRADERMA PRN
[2021-10-29 08:01] VITALS: TEMP 97.6
[2021-10-29] MEDS ORDERED: fentaNYL (PF) 50 MCG/ML 2 ML AMP ONE (08:45)
[2021-10-29] MEDS ORDERED: MIDAZOLAM 2 MG/2 ML VIAL ONE (08:45)
[2021-10-29] MEDS ORDERED: ROPIVACAINE 5MG/ML 20ML VIAL ONE (08:46)
[2021-10-29] MEDS ORDERED: methylPREDNISolone ACETATE 40 MG/ML 1 ML VIAL ONE (08:46)
[2021-10-29] MEDS ORDERED: IV FLUID CONTINUATION 900 ML IV ONE (09:08)
--- NOTE | 2021-10-29 09:10 | P.PCN ---
Date of Procedure: 10/29/21 Procedure(s) Performed: Procedure= bilateral sacroiliac joints steroid injection under fluoroscopy guidance (fluoroscopy image stored on file in the radiology Department ) Trigger point injections lumbar paraspinal muscles 3 on the left side lumbar paraspinal muscles ,and 2 on the right side lumbar paraspinal muscles Preoperative diagnosis= 1-sacroiliitis 2-failed back surgery syndrome lumbar area 3-myofascial pain syndrome lumbar paraspinal muscles Postoperative diagnosis=Same as preop Diagnosis . Complication = none Anesthesia= monitored anesthesia care as per anesthesia department Condition= stab Indication for the procedure= patient complaining of low back pain , examination was positive for severe tenderness over the sacroiliac joints bilaterally and patient diagnosed with sacroiliitis, for this reason she was good candidate for sacroiliac joint steroid injection. Description of the procedure= procedure risk and benefits discussed with the patient, including but not limited, risk of infection and bleeding, and ALLERGIC reaction to the medication and not complete pain relief and patient agreed with the preceding patient taken to the operating room, placed in prone position or standard monitors applied to the patient then after induction of anesthesia back prepped with chlorhexidine 3 times , Then under strict sterile technique, first I did the right sacroiliac joint the which was identified under fluoroscopy guidance been local infiltration of the skin and subcu interstitial with lidocaine 1% then 22-gauge Quincke Needle advanced slowly under fluoroscopy and placed in the right sacroiliac joint needle placement confirmed with AP and oblique and lateral view and after appropriate needle placement confirmed and after negative aspiration, or heme , then Ropivacaine 0.5% 4 mL, and 20 mg of Depo-Medrol mixed together and injected in the right sacroiliac joint after negative aspiration patient tolerated the procedure well without any complication. Then the left sacroiliac joint steroid injection done under strict sterile technique local infiltration of the skin and subcu interstitial at the location of the left sacroiliac joint then a 22-gauge [place]ke Needle advanced slowly under fluoroscopy time placed in the left sacroiliac joint, needle placement confirmed with AP and oblique and lateral view then after appropriate needle placement confirmed and after negative aspiration 0.5% Ropivacaine 4 mL and 20 mg of Depo-Medrol injected in the left sacroiliac joint after negative aspiration . Then after than the trigger point injection done in a similar technique, each of the trigger point that was marked in the preop holding area injected with ropivacaine 0.5% 2 mL, using 25-gauge needle, injection done after negative aspiration and there was no paresthesia during the injection, total of 3 trigger point injected on the left side lumbar paraspinal muscles ,and 2 on the right side lumbar paraspinal muscles note= patient was scheduled to have facet injection at L5-S1, and before we do the procedure I reviewed the previous x-ray for the lumbar spine showed the patient had extensive lumbar fusion, and the fusion was extending from L3 to S1, which means the patient had no facet joint at L5-S1, for this reason after dis cussion with the patient, the procedure was changed to sacroiliac joint injection and trigger point injection in the lumbar paraspinal muscles because patient had clinical findings of sacroiliitis and clinical finding of myofascial pain syndrome, hopefully this procedure would provide the patient with better pain relief. Physical Examinations : -Constitutiona : Cooperative , not in acute distress . -HEENT : nech : supple , no Lymphadenopathy , normal thyroid size . : eyes : no ptosis , no icterus, no photophobia . - neurologic : Cranial nerve II to XII intact , no focal neurological deffecit . -psychatric : alert , oriented X 3 , appropriate affect , intact judgment and insight . -Lymphatic : no Lymphadenopathy . - musculoskeltal : Lumber spine moter stegnth lower extremities ,thigh and legs 5/5 Right side , 5/5 Left side deep tendon reflexes : normal Knee Jerk , normal ankle Jerk lumber facet Loading Test =positive Right , positive Left Range of motion of the lumbar spine Flexion 30 degrees, extension 10 degrees strait leg raising test = positive at 30 degree Fabere test= positive Right , and positive LT . Sever tenderness over the Sacroiliac joint on the Right , and Left sides Gaenslen test= positive right ,and positive left . Seated flexion test= positive right ,and positive Left . Distraction test= positive bilaterally Sacroiliac compression test= positive bilaterally. Multiple trigger point identified in the lumb ar paraspinal muscles bilaterally Assessment and plan=1-bilateral sacroiliitis. 2-myofascial pain syndrome lumbar paraspinal muscles. 3-failed back surgery syndrome lumbar area. she could benefit from bilateral sacroiliac joint steroid injection and trigger point injection
[2021-10-29 09:11] VITALS: RESP 16
--- NOTE | 2021-10-29 09:11 | FL ---
Fluoroscopy INDICATION: Pain FINDINGS: Fluoroscopy time: 14 seconds. Images obtained: 2. IMPRESSIONS: 1. Documentation of fluoroscopy.
[2021-10-29 09:33] VITALS: BP 111/64; PULSE 72
== END 2021-10-29 09:39 | disposition home or self-care (01) ==
LOC: ORPAIN 07:37
PROVIDERS: ATTEND Specialist
DX: M46.1 Sacroiliitis, not elsewhere classified (principal); M79.18 Myalgia, other site; Z98.1 Arthrodesis status; I10 Essential (primary) hypertension; E78.5 Hyperlipidemia, unspecified; J45.909 Unspecified asthma, uncomplicated; K21.9 Gastro-esophageal reflux disease without esophagitis; E07.9 Disorder of thyroid, unspecified; Z88.2 Allergy status to sulfonamides; M19.90 Unspecified osteoarthritis, unspecified site; Z79.899 Other long term (current) drug therapy; Z79.890 Hormone replacement therapy; Z88.1 Allergy status to other antibiotic agents; Z91.09 Other allergy status, other than to drugs and biological substances; Z79.1 Long term (current) use of non-steroidal anti-inflammatories (NSAID); Z79.52 Long term (current) use of systemic steroids; Z80.3 Family history of malignant neoplasm of breast; Z80.1 Family history of malignant neoplasm of trachea, bronchus and lung; Z80.8 Family history of malignant neoplasm of other organs or systems; Z82.3 Family history of stroke
CPT/HCPCS: 20553; J2250; J1030; J3010; J2795; G0260; 62264

== ENCOUNTER → 2021-11-15 | Outpatient (CLI) | payer MEDICARE, BC ==
[2021-11-15 13:09] VITALS: BP 104/64; PULSE 91; RESP 18; TEMP 98.2
--- NOTE | 2021-11-15 14:27 | P.PAINPG ---
PQRS Measure Charge Sheet Comment: A 71 yr old female with a history of severe and chronic low back pain secondary to BL Sacroiliitis presents today for evaluation s/p BL SI joint injections. Pt states she experienced 80% pain relief for 14 days s/p procedure. Pain level is 5/10 in intensity, constant, sore, achy, sharp in the lower aspect of the lumbar spine with radiation to the BLEs. Pain is provoked by cold weather, standing/walking for periods of 15 min or more. Pain is alleviated with PT in 2020, heat, medications (Motrin, Advil, [place] from Dr Wilkins), topicals, home exercise regimen, repositioning and rest. Interventional pain procedures completed include BL SI joint injection. Patient is currently on [place], Motrin OTC, Advil OTC Patient denies any side effects of the medication(s), denies excessive drowsiness or sleepiness, denies suicidal ideation and reports that the current pain medication is helping to control the pain and improve activities of daily living. Patient denies any motor or sensory deficits. Patient denies any fever or night sweats, denies any change in the bowel movements or urination. Physical Examination: -Constitutional: Cooperative. Not in acute distress . - Neurologic: Cranial nerve II to XII intact. No focal neurological deficits. - Psychatric: Alert & oriented x 3. Matching mood & appropriate affect. Judgment and insight intact. - Musculoskeletal: Cervical spine: Muscle bulk/ tone/ strength in the bilateral upper extremities normal Vertebral body tenderness to palpation over [place]ling test positive Distraction test positive Facet loading test positive Thoracic spine Muscle bulk / tone/ strength in the bilateral paraspinal muscles normal Vertebral body tender to palpation over Facet loading test positive Lumbar spine: Motor bulk/ tone/ strength lower extremities , thigh and legs : 5/5 Deep tendon reflexes : Normal Knee Jerk. Normal Ankle Jerk . Vertebral body tenderness to palpation over Lumbar Facet Loading Test positive Straight Leg Raise: positive at 30 degrees right side/ left side Gaenslen's Test positive Sacral spine : Severe tenderness over the Sacroiliac joint: right side / left side Range of motion: Flexion of the lumbar spine <60 degrees Range of motion: Extension of the lumbar spine <20 degrees Gaenslen's Test positive Wagner's Test positive Parvez test: positive right side & left side Thigh Thrust Test Sacral Thrust Test Assessment and plan: Chronic low back pain secondary to BL Sacroiliitis Recommendation of BL SI joint injection #2. May need a series of injections, up to every 3 mo, for optimal pain relief. Risks, benefits of procedure discussed and pt verbalized understanding. Denies anticoagulant use or medical history of diabetes. All patient questions answered MAPS reviewed and it was appropriate. I have spent less than 30 minutes on patient care today. Dr Humphreys was available by phone for the evaluation of this patient. The time was used to review the medical records including relevant urine studies and Prescription history (MAPs), review of the available imaging, evaluation and examination of the patient, coordination of care with the medical staff and if applicable referring physicians, as well as creation of the medical record - Pain Location Lower Back Non-Pharmacological Interventions: Heat, Home Exercise, Inactivity, Physical Therapy, Position/Reposition, Stretching Pharmacological Interventions: Block, Epidural, PRN Medication, Topical Medication PQRS Narrative: Smoking Status Never smoker Narcotic Agreement Date Signed 10/16/18 Hx Alcohol Use (MH) Yes: social Home Medications: Ambulatory Orders Loratadine [Claritin] 10 mg PO DAILY PRN 09/06/17 Calcium Carbonate [Calcium] 600 mg PO DAILY 09/12/17 Fluticasone Nasal [place] [Flonase Nasal [place]] 1 spray EA NOSTRIL DAILY PRN 09/12/17 Levothyroxine Sodium [Synthroid] 75 mcg PO QAM 09/12/17 Atorvastatin [Lipitor] 20 mg PO DAILY 06/26/18 Ibuprofen [Advil] 600 mg PO TID PRN 08/21/18 Cyclobenzaprine [Flexeril] 5 mg PO HS 01/02/20 HYDROcodone/APAP 5-325MG [[place] 5-325] 1 tab PO BID PRN 01/02/20 Multivitamins, Thera [Multivitamin (formulary)] 1 tab PO DAILY 01/02/20 Omeprazole 20 mg PO DAILY 01/24/20 Aspirin EC [Ecotrin Low Dose] 81 mg PO DAILY 02/11/20 Triamterene-Hctz 37.5-25Mg [Dyazide 37.5-25 Capsule] 1 cap PO DAILY 03/22/21 Controlled Substance Measures - Controlled Substance Measures Is patient prescribed a controlled substance at discharge?: No
== END ==
LOC: PNWHC3 12:39
PROVIDERS: ATTEND Specialist
DX: M46.1 Sacroiliitis, not elsewhere classified (principal); G89.29 Other chronic pain; Z88.2 Allergy status to sulfonamides; Z91.048 Other nonmedicinal substance allergy status; Z88.1 Allergy status to other antibiotic agents
CPT/HCPCS: 99211

== ENCOUNTER → 2021-12-28 | Outpatient (CLI) | payer MEDICARE, BC ==
--- NOTE | 2021-12-28 18:45 | MR ---
EXAMINATION TYPE: MR lumbar spine wo con DATE OF EXAM: 12/28/2021 5:16 PM COMPARISON: 12/25/2012. CLINICAL INDICATION:Female, 71 years old with history of M54.50 LOW BACK PAIN; TECHNIQUE: Multi planar, multi sequence imaging was performed utilizing: T1-weighted, T2-weighted, a nd turbo inversion recovery imaging of the lumbar spine. IV Contrast: none FINDINGS: Alignment: The lumbar vertebral bodies have preserved heights with straightening of the alignment. Cord: The conus medullaris and the distal spinal cord appear unremarkable with regards to their signa l intensity and morphology. Bones/Discs: Multilevel scattered Modic endplate changes are present. Multilevel degenerative disc di sease is noted and most pronounced at the . Postsurgical changes extending from L2 to S1 are present with hardware in place. Stability artifact limits evaluation at these levels. Lower thoracic: Multilevel disc bulging extending throughout the visualized thoracic spine with at le ast mild spinal canal stenosis. There is facet joint arthropathy also present throughout the visualiz ed spine with at least mild bilateral T11-T12 and T12-L1 neural foraminal stenosis. L1-L2: Disc bulge with facet joint arthropathy results in mild spinal canal and moderate to severe bi lateral neural foraminal stenosis. L2-L3: Postsurgical changes with susceptibility artifact at this level limits evaluation of the neura l foramen. The spinal canal is patent. The neural foramen appear grossly patent. L3-L4: Postsurgical changes with susceptibility artifact at this level limits evaluation of the neura l foramen. The spinal canal is patent. The neural foramen appear grossly patent. L4-L5: Postsurgical changes with susceptibility artifact at this level limits evaluation of the neura l foramen. The spinal canal is patent. Right neural foramen is patent left neural foramen appears to be mildly narrowed however is extremely limited due to susceptibility artifact. L5-S1: Postsurgical changes with susceptibility artifact at this level limits evaluation of the neura l foramen. The spinal canal is patent. The neural foramen appear grossly patent. Other findings: None. IMPRESSION: 1. No definitive evidence of disc herniation or significant spinal canal stenosis. 2. Multilevel disc degeneration with associated osteoarthritic changes worse at L4-L5 on the right w ith at least moderate and L1-L2 with moderate to severe bilateral neural foraminal stenosis.
== END | disposition home or self-care (01) ==
LOC: RADMRIMAIN 16:30
PROVIDERS: ATTEND Internal Medicine Geriatric Medicine
DX: M47.816 Spondylosis without myelopathy or radiculopathy, lumbar region (principal); M51.26 Other intervertebral disc displacement, lumbar region; M51.36 Other intervertebral disc degeneration, lumbar region; M99.73 Connective tissue and disc stenosis of intervertebral foramina of lumbar region
CPT/HCPCS: 72148

== ENCOUNTER → 2022-01-24 | Outpatient (CLI) | payer MEDICARE, BC ==
[2022-01-24 11:32] VITALS: BP 145/82; PULSE 89; RESP 18; TEMP 98.1
--- NOTE | 2022-01-24 14:23 | P.PAINPG ---
PQRS Measure Charge Sheet Comment: A 72 yr old femalewith a history of severe and chronic low back pain x years secondary to BL Sacroiliitis presents today for evaluation s/p SI injection. She experienced 95% pain relief x 3 wks s/p procedure. Pain level is currently at 5 /10 in intensity, constant, achy in character w sharp/ shooting towards BL flanks and LLE. Pain is provoked as high as 8/10 by walking/standing in cold weather. Pain is alleviated with PT 3 yrs ago, heat, meds (Advil, Ibuprofen, Voltaren gel, Plush from Dr Eduardo), heating pad use, sitting w LEs elevated, repositioning and rest. Interventional pain procedures completed include BL SI injection x2, Caudal YENIFER w lysis, TPIs L L3-L5, Patient is currently on Plush, Advil, Ibuprofen, Voltaren gel Patient denies any side effects of the medication(s), denies excessive drowsiness or sleepiness, denies suicidal ideation and reports that the current pain medication is helping to control the pain and improve activities of daily living. Patient denies any motor or sensory deficits. Patient denies any fever or night sweats, denies any change in the bowel movements or urination. Physical Examination: -Constitutional: Cooperative. Not in acute distress . - Neurologic: Cranial nerve II to XII intact. No focal neurological deficits. - Psychatric: Alert & oriented x 3. Matching mood & appropriate affect. Judgment and insight intact. - Musculoskeletal: Cervical spine: Muscle bulk/ tone/ strength in the bilateral upper extremities normal Vertebral body tenderness to palpation over Spurling test positive Distraction test positive Facet loading test positive Thoracic spine Muscle bulk / tone/ strength in the bilateral paraspinal muscles normal Vertebral body tender to palpation over Facet loading test positive Lumbar spine: Motor bulk/ tone/ strength lower extremities , thigh and legs : 5/5 Deep tendon reflexes : Normal Knee Jerk. Normal Ankle Jerk . Vertebral body tenderness to palpation over Lumbar Facet Loading Test positive Straight Leg Raise: positive at 30 degrees right side/ left side Gaenslen's Test positive Sacral spine : Severe tenderness over the Sacroiliac joint: right side / left side Range of motion: Flexion of the lumbar spine <60 degrees Range of motion: Extension of the lumbar spine <20 degrees Gaenslen's Test positive BL Parvez test: positive right side / left side BL Thigh Thrust Test Sacral Thrust Test +R/ +L Imaging: MRI without contrast of the lumbar spine from 12/28/21 reviewed Assessment and plan: Chronic low back pain secondary to BL Sacroiliitis Recommendation of BL SI joint injection #3. Patient may need a series of injections, up to 4 within a 12 month timeframe, for optimal pain relief. Risks, benefits of procedure discussed and pt verbalized understanding. Admits to anticoagulant use and denies medical history of diabetes. Protocol for discontinuation/ continuation of meds urszula procedure discussed. All patient questions answered MAPS reviewed and it was appropriate. I have spent less than 30 minutes on patient care today. Dr Humphreys was available by phone for the evaluation of this patient. The time was used to review the medical records including relevant urine studies and Prescription history (MAPs), review of the available imaging, evaluation and examination of the patient, coordination of care with the medical staff and if applicable referring physicians, as well as creation of the medical record PQRS Narrative: Smoking Status Never smoker Narcotic Agreement Date Signed 10/16/18 Hx Alcohol Use (MH) Yes: social Home Medications: Ambulatory Orders Loratadine [Claritin] 10 mg PO DAILY PRN 09/06/17 Calcium Carbonate [Calcium] 600 mg PO DAILY 09/12/17 Fluticasone Nasal [place] [Flonase Nasal [place]] 1 spray EA NOSTRIL DAILY PRN 09/12/17 Levothyroxine Sodium [Synthroid] 75 mcg PO QAM 09/12/17 Atorvastatin [Lipitor] 20 mg PO HS 06/26/18 Ibuprofen [Advil] 600 mg PO TID PRN 08/21/18 Cyclobenzaprine [Flexeril] 5 mg PO HS 01/02/20 HYDROcodone/APAP 5-325MG [Plush 5-325] 1 tab PO BID PRN 01/02/20 Multivitamins, Thera [Multivitamin (formulary)] 1 tab PO DAILY 01/02/20 Omeprazole 20 mg PO DAILY 01/24/20 Aspirin EC [Ecotrin Low Dose] 81 mg PO DAILY 02/11/20 traZODone HCL [Desyrel] 50 mg PO HS PRN 12/23/21 Controlled Substance Measures - Controlled Substance Measures Is patient prescribed a controlled substance at discharge?: No
== END | disposition home or self-care (01) ==
LOC: PNWHC3 11:04
PROVIDERS: ATTEND Specialist
DX: M46.1 Sacroiliitis, not elsewhere classified (principal); G89.29 Other chronic pain
CPT/HCPCS: 99211

== ENCOUNTER 2022-02-24 08:01 | Day surgery (SDC) | payer MEDICARE, BC ==
[2022-02-23 09:24] VITALS: BMI 35.2
[2022-02-24 08:28] VITALS: RESP 16; TEMP 98
[2022-02-24] MEDS ORDERED: LACTATED RINGERS 1,000 ML IV ONE (08:30)
[2022-02-24] MEDS ORDERED: methylPREDNISolone ACETATE 40 MG/ML 1 ML VIAL ONE (08:58)
[2022-02-24] MEDS ORDERED: MIDAZOLAM 2 MG/2 ML VIAL ONE (08:58)
[2022-02-24] MEDS ORDERED: ROPIVACAINE 5 MG/ML 20 ML AMPULE ONE (08:58)
[2022-02-24] MEDS ORDERED: fentaNYL (PF) 50 MCG/ML 2 ML AMP ONE (08:58)
--- NOTE | 2022-02-24 09:14 | P.PCN ---
Date of Procedure: 02/24/22 Procedure(s) Performed: Procedure= bilateral sacroiliac joints steroid injection under fluoroscopy guidance (fluoroscopy image stored on file in the radiology Department ) Preoperative diagnosis= 1-sacroiliitis 2-postlaminectomy pain syndrome lumbar area Postoperative diagnosis=Same as preop Diagnosis . Complication = none Condition= stable Anesthesia= moderate sedation with intravenous Versed 2 mg , and fentanyl 50 micrograms . Sedation start time: 0900 Sedation end time : 910 Indication for the procedure= patient complaining of low back pain , examination was positive for severe tenderness over the sacroiliac joints bilaterally and patient diagnosed with sacroiliitis, for this reason , she was good candidate for sacroiliac joint steroid injection. Description of the procedure= procedure risk and benefits discussed with the patient, including but not limited, risk of infection and bleeding, and ALLERGIC reaction to the medication and not complete pain relief and patient agreed with the preceding patient taken to the operating room, placed in prone position or standard monitors applied to the patient then after induction of anesthesia back prepped with chlorhexidine 3 times , Then under strict sterile technique, first I did the right sacroiliac joint the which was identified under fluoroscopy guidance been local infiltration of the skin and subcu interstitial with lidocaine 1% then 22-gauge Quincke Needle advanced slowly under fluoroscopy and placed in the right sacroiliac joint needle placement confirmed with AP and oblique and lateral view and after appropriate needle placement confirmed and after negative aspiration, or heme , then Ropivacaine 0.5% 5 mL, and 20 mg of Depo-Medrol mixed together and injected in the right sacroiliac joint after negative aspiration patient tolerated the procedure well without any complication. Then the left sacroiliac joint steroid injection done under strict sterile technique local infiltration of the skin and subcu interstitial at the location of the left sacroiliac joint then a 22-gauge Quincke Needle advanced slowly under fluoroscopy time placed in the left sacroiliac joint, needle placement confirmed with AP and oblique and lateral view then after appropriate needle placement confirmed and after negative aspiration 0.5% Ropivacaine 5 mL and 20 mg of Depo-Medrol injected in the left sacroiliac joint after negative aspiration patient tolerated the procedure well that any complications and she will follow up in clinic 3 weeks
[2022-02-24] MEDS ORDERED: IV FLUID CONTINUATION 1,000 ML IV ONE (09:19)
[2022-02-24 09:35] VITALS: BP 130/71; PULSE 80
--- NOTE | 2022-02-24 12:14 | FL ---
EXAMINATION TYPE: FL guided pain mgmt statistic DATE OF EXAM: 02/24/2022 FLUOROSCOPY Fluoroscopy time of 22 seconds was used during bilateral SI joint injections. 2 image/s document/s t he procedure.
== END 2022-02-24 09:47 | disposition home or self-care (01) ==
LOC: ORPAIN 08:01
PROVIDERS: ATTEND Specialist
DX: M46.1 Sacroiliitis, not elsewhere classified (principal); Z88.2 Allergy status to sulfonamides; M96.1 Postlaminectomy syndrome, not elsewhere classified; M47.817 Spondylosis without myelopathy or radiculopathy, lumbosacral region
CPT/HCPCS: 99152; J2250; J1030; J3010; J2795; G0260

== ENCOUNTER → 2022-08-26 | Outpatient (CLI) | payer MEDICARE, BC ==
[2022-08-26 16:00] LABS: African American GFR (CKD) 46.8 (60.0-200.0); Albumin 4.3 g/dL (3.8-4.9); Albumin/Globulin Ratio 1.59 (1.60-3.17); Anion Gap 12.4 mmol/L (10.00-18.00); BUN/Creat Ratio 16.62 Ratio (12.00-20.00); Blood Urea Nitrogen 21.6 mg/dL (9.0-27.0); Calcium 9.9 mg/dL (8.7-10.3); Carbon Dioxide 21.7 mmol/L (20.0-27.5); Globulin 2.7 g/dL (1.6-3.3); Non-African American GFR(CKD) 40.4 (60.0-200.0); Potassium 3.8 mmol/L (3.5-5.5); Total Bilirubin 0.4 mg/dL (0.30-1.20)
== END | disposition home or self-care (01) ==
LOC: LABWHC1 09:54
PROVIDERS: ATTEND Internal Medicine Interventional Cardiology
DX: I10 Essential (primary) hypertension (principal)
CPT/HCPCS: 36415; 80053

== ENCOUNTER → 2022-11-16 | Outpatient (CLI) | payer MEDICARE, BC ==
[2022-11-16 09:59] VITALS: BP 122/73; PULSE 92; RESP 15; TEMP 98.4
--- NOTE | 2022-11-16 15:30 | P.PAINPG ---
PQRS Measure Charge Sheet Comment: A 72 yr old female with a history of severe and chronic low back pain x years secondary to BL Sacroiliitis presents today for evaluation s/p SI injection #3 in Jan 2022. She experienced 100% pain relief x 4-5 wks s/p procedure. Pain level is currently at 7 /10 in intensity, constant, achy in character w sharp/ shooting towards BL flanks and LLE. Pain is provoked as high as 8/10 by walking/standing in cold weather. Pain is alleviated with PT semi weekly x 3 mo which she is currently in, heat, meds (Advil, Ibuprofen, Voltaren gel, Hard[place] from Dr Eduardo), heating pad use, sitting w LEs elevated, repositioning and rest. Oswestry axial pain score of 28. Interventional pain procedures completed include BL SI injection x3, Caudal YENIFER w lysis, TPIs L L3-L5 Patient is currently on [place], Advil, Ibuprofen, Voltaren gel Patient denies any side effects of the medication(s), denies excessive drowsiness or sleepiness, denies suicidal ideation and reports that the current pain medication is helping to control the pain and improve activities of daily living. Patient denies any motor or sensory deficits. Patient denies any fever or night sweats, denies any change in the bowel movements or urination. Physical Examination: -Constitutional: Cooperative. Not in acute distress . - Neurologic: Cranial nerve II to XII intact. No focal neurological deficits. - Psychatric: Alert & oriented x 3. Matching mood & appropriate affect. Judgment and insight intact. - Musculoskeletal: Cervical spine: Muscle bulk/ tone/ strength in the bilateral upper extremities normal Vertebral body tenderness to palpation over Spurling test positive Distraction test positive Facet loading test positive Thoracic spine Muscle bulk / tone/ strength in the bilateral paraspinal muscles normal Vertebral body tender to palpation over Facet loading test positive Lumbar spine: Motor bulk/ tone/ strength lower extremities , thigh and legs : 5/5 Deep tendon reflexes : Normal Knee Jerk. Normal Ankle Jerk . Vertebral body tenderness to palpation over Lumbar Facet Loading Test positive Straight Leg Raise: positive at 30 degrees right side/ left side Gaenslen's Test positive Sacral spine : Severe tenderness over the Sacroiliac joint: right side / left side Range of motion: Flexion of the lumbar spine <60 degrees Range of motion: Extension of the lumbar spine <20 degrees Gaenslen's Test positive BL Parvez test: positive right side / left side BL Thigh Thrust Test Sacral Thrust Test +R/ +L Imaging: MRI without contrast of the lumbar spine from 12/28/21 reviewed Assessment and plan: Chronic low back pain secondary to BL Sacroiliitis Recommendation of BL SI joint injection. Patient may need a series of injections, up to 4 within a 12 month timeframe, for optimal pain relief. Risks, benefits of procedure discussed and pt verbalized understanding. Admits to anticoagulant use and denies medical history of diabetes. Protocol for discontinuation/ continuation of meds urszula procedure discussed. All patient questions answered MAPS reviewed and it was appropriate. I have spent less than 30 minutes on patient care today. Dr Humphreys was available by phone for the evaluation of this patient. The time was used to review the medical records including relevant urine studies and Prescription history (MAPs), review of the available imaging, evaluation and examination of the patient, coordination of care with the medical staff and if applicable referring physicians, as well as creation of the medical record PQRS Narrative: Smoking Status Never smoker Narcotic Agreement Date Signed 10/16/18 Hx Alcohol Use (MH) Yes: social Home Medications: Ambulatory Orders Levothyroxine Sodium [Synthroid] 75 mcg PO DAILY 09/12/17 Ibuprofen [Advil] 600 mg PO QID PRN 08/21/18 Cyclobenzaprine [Flexeril] 5 mg PO HS 01/02/20 HYDROcodone/APAP 5-325MG [[place]wick 5-325] 1 tab PO Q6H PRN 01/02/20 Multivitamins, Thera [Multivitamin (formulary)] 1 tab PO DAILY 01/02/20 Omeprazole 20 mg PO DAILY PRN 01/24/20 traZODone HCL [Desyrel] 25 mg PO HS 12/23/21 Calcium Citrate/Vitamin D3 [Citracal + D Maximum Caplet] 1 tab PO DAILY 06/14/22 Aspirin 325 mg PO DAILY 30 Days #30 tab 06/17/22 Atorvastatin [Lipitor] 40 mg PO HS 30 Days #30 tab 06/17/22 Clopidogrel [Plavix] 75 mg PO DAILY 30 Days #30 tab 06/17/22 SILVER sulfADIAZINE CREAM [Silvadene Cream] 1 applic TOPICAL BID each 06/17/22 Controlled Substance Measures - Controlled Substance Measures Is patient prescribed a controlled substance at discharge?: No
== END ==
LOC: PNWHC3 09:13
PROVIDERS: ATTEND Specialist
DX: M46.1 Sacroiliitis, not elsewhere classified (principal); G89.29 Other chronic pain; Z88.2 Allergy status to sulfonamides; Z91.048 Other nonmedicinal substance allergy status; Z88.8 Allergy status to other drugs, medicaments and biological substances; Z79.82 Long term (current) use of aspirin
CPT/HCPCS: 99211

== ENCOUNTER 2022-11-22 06:33 | Day surgery (SDC) | payer MEDICARE, BC ==
[2022-11-18 12:44] VITALS: BMI 34.3
[~2022-11-22 06:33] MED LIST changes: -LIDOCAINE 1% (10MG/ML) FOR IV START INTRADERMA PRN
[2022-11-22 06:59] VITALS: RESP 16; TEMP 96.9
[2022-11-22] MEDS ORDERED: ROPIVACAINE 5 MG/ML 20 ML AMPULE ONE (07:24)
[2022-11-22] MEDS ORDERED: IOPAMIDOL M200 10 ML VIAL ONE (07:24)
[2022-11-22] MEDS ORDERED: methylPREDNISolone ACETATE 40 MG/ML 1 ML VIAL ONE (07:24)
--- NOTE | 2022-11-22 07:34 | P.PCN ---
Date of Procedure: 11/22/22 Procedure(s) Performed: Procedure= bilateral sacroiliac joints steroid injection under fluoroscopy guidance (fluoroscopy image stored on file in the radiology Department ) Preoperative diagnosis= 1-sacroiliitis 2-postlaminectomy pain syndrome lumbar area Postoperative diagnosis=Same as preop Diagnosis . Complication = none Condition= stable Anesthesia= ropivacaine 0.5% 4 ml was skin and subcu infiltration Indication for the procedure= patient complaining of low back pain , examination was positive for severe tenderness over the sacroiliac joints bilaterally and patient diagnosed with sacroiliitis, for this reason , she was good candidate for sacroiliac joint steroid injection. Description of the procedure= procedure risk and benefits discussed with the patient, including but not limited, risk of infection and bleeding, and ALLERGIC reaction to the medication and not complete pain relief and patient agreed with the preceding patient taken to the operating room, placed in prone position or standard monitors applied to the patient then after induction of anesthesia back prepped with chlorhexidine 3 times , Then under strict sterile technique, first I did the right sacroiliac joint the which was identified under fluoroscopy guidance been local infiltration of the skin and subcu interstitial with lidocaine 1% then 22-gauge Quincke Needle advanced slowly under fluoroscopy and placed in the right sacroiliac joint needle placement confirmed with AP and oblique and lateral view and after appropriate needle placement confirmed and after negative aspiration, or heme , then Ropivacaine 0.5% 2 mL, and 20 mg of Depo-Medrol mixed together and injected in the right sacroiliac joint after negative aspiration patient tolerated the procedure well without any complication. Then the left sacroiliac joint steroid injection done under strict sterile technique local infiltration of the skin and subcu interstitial at the location of the left sacroiliac joint then a 22-gauge Quincke Needle advanced slowly under fluoroscopy time placed in the left sacroiliac joint, needle placement confirmed with AP and oblique and lateral view then after appropriate needle placement confirmed and after negative aspiration 0.5% Ropivacaine 2 mL and 20 mg of Depo-Medrol injected in the left sacroiliac joint after negative aspiration patient tolerated the procedure well that any complications and she will follow up in clinic 3 weeks
[2022-11-22 08:01] VITALS: BP 128/78; PULSE 78
--- NOTE | 2022-11-22 08:15 | FL ---
Fluoroscopy History: Nathaniel SI Inj Nathaniel SI Inj 5sec fluoro time 0.55949 DAP
== END 2022-11-22 08:04 | disposition home or self-care (01) ==
LOC: ORPAIN 06:33
PROVIDERS: ATTEND Specialist
DX: M46.1 Sacroiliitis, not elsewhere classified (principal); M96.1 Postlaminectomy syndrome, not elsewhere classified; Z88.2 Allergy status to sulfonamides
CPT/HCPCS: J1030; Q9966; J2795; G0260

== ENCOUNTER → 2022-12-13 | Outpatient (CLI) | payer MEDICARE, BC ==
--- NOTE | 2022-12-13 18:39 | XR ---
EXAMINATION TYPE: XR chest 2V DATE OF EXAM: 12/13/2022 4:40 PM COMPARISON: Chest radiographs from 06/14/2022 TECHNIQUE: XR chest 2V Frontal and lateral views of the chest. CLINICAL INDICATION:Female, 72 years old with history of R05.9; FINDINGS: Lungs/Pleura: There is no evidence of pleural effusion, focal consolidation, or pneumothorax. Pulmonary vascularity: Unremarkable. Heart/mediastinum: Cardiomediastinal silhouette is unremarkable. Atherosclerotic calcifications are seen in the aorta. Musculoskeletal: No acute osseous pathology. IMPRESSION: No acute cardiopulmonary disease/process.
== END | disposition home or self-care (01) ==
LOC: RADXRMAIN 16:14
PROVIDERS: ATTEND Internal Medicine Geriatric Medicine
DX: R05.9 Cough, unspecified (principal)
CPT/HCPCS: 71046

== ENCOUNTER → 2022-12-15 | Outpatient (CLI) | payer MEDICARE, BC ==
[2022-12-15 11:38] VITALS: BP 136/81; PULSE 89; RESP 16; TEMP 98.6
--- NOTE | 2022-12-15 12:27 | P.PAINPG ---
PQRS Measure Charge Sheet Comment: A 72 yr old female with a history of severe and chronic low back pain x years secondary to BL Sacroiliitis presents today for evaluation s/p BL SI injection #4. She experienced 80% pain relief x 3 wks s/p procedure. Pain level is provoked at 10 /10 in intensity, constant, achy in character w sharp/ shooting towards BL flanks and BLEs. Pain is provoked by walking/standing in cold weather. Pain is alleviated with PT semi weekly x 3 mo which she is currently in, heat, meds, heating pad use, sitting w LEs elevated, repositioning and rest. Oswestry axial pain score of 28. Interventional pain procedures completed include BL SI injection x4, Caudal YENIFER w lysis, TPIs L L3-L5 Patient is currently on [place], Advil, Ibuprofen, Voltaren gel Patient denies any side effects of the medication(s), denies excessive drowsiness or sleepiness, denies suicidal ideation and reports that the current pain medication is helping to control the pain and improve activities of daily living. Patient denies any motor or sensory deficits. Patient denies any fever or night sweats, denies any change in the bowel movements or urination. Physical Examination: -Constitutional: Cooperative. Not in acute distress . - Neurologic: Cranial nerve II to XII intact. No focal neurological deficits. - Psychatric: Alert & oriented x 3. Matching mood & appropriate affect. Judgment and insight intact. - Musculoskeletal: Cervical spine: Muscle bulk/ tone/ strength in the bilateral upper extremities normal Vertebral body tenderness to palpation over Spurling test positive Distraction test positive Facet loading test positive Thoracic spine Muscle bulk / tone/ strength in the bilateral paraspinal muscles normal Vertebral body tender to palpation over Facet loading test positive Lumbar spine: Motor bulk/ tone/ strength lower extremities , thigh and legs : 5/5 Deep tendon reflexes : Normal Knee Jerk. Normal Ankle Jerk . Vertebral body tenderness to palpation over Lumbar Facet Loading Test positive Straight Leg Raise: positive at 30 degrees right side/ left side Gaenslen's Test positive Sacral spine : Severe tenderness over the Sacroiliac joint: right side / left side Range of motion: Flexion of the lumbar spine <60 degrees Range of motion: Extension of the lumbar spine <20 degrees Gaenslen's Test positive BL Parvez test: positive right side / left side BL Thigh Thrust Test Sacral Thrust Test Imaging: MRI without contrast of the lumbar spine from 12/28/21 reviewed Assessment and plan: Chronic low back pain secondary to BL Sacroiliitis Discussed Caudal YENIFER w Lysis but pt wants to think about it more. May return on an as needed basis. All patient questions answered I have spent less than 30 minutes on patient care today. Dr Humphreys was available by phone for the evaluation of this patient. The time was used to review the medical records including relevant urine studies and Prescription history (MAPs), review of the available imaging, evaluation and examination of the patient, coordination of care with the medical staff and if applicable referring physicians, as well as creation of the medical record PQRS Narrative: Smoking Status Never smoker Narcotic Agreement Date Signed 10/16/18 Hx Alcohol Use (MH) Yes: social Home Medications: Ambulatory Orders Levothyroxine Sodium [Synthroid] 75 mcg PO DAILY 09/12/17 Ibuprofen [Advil] 600 mg PO QID PRN 08/21/18 Cyclobenzaprine [Flexeril] 5 mg PO HS 01/02/20 HYDROcodone/APAP 5-325MG [[place] 5-325] 1 tab PO Q6H PRN 01/02/20 Omeprazole 20 mg PO DAILY 01/24/20 traZODone HCL [Desyrel] 25 mg PO HS 12/23/21 Atorvastatin [Lipitor] 40 mg PO HS 30 Days #30 tab 06/17/22 Aspirin [Adult Low Dose Aspirin EC] 81 mg PO DAILY 11/18/22 Controlled Substance Measures - Controlled Substance Measures Is patient prescribed a controlled substance at discharge?: No
== END ==
LOC: PNWHC3 10:58
PROVIDERS: ATTEND Specialist
DX: M46.1 Sacroiliitis, not elsewhere classified (principal); G89.29 Other chronic pain; Z88.2 Allergy status to sulfonamides; Z91.048 Other nonmedicinal substance allergy status; Z88.1 Allergy status to other antibiotic agents; Z79.82 Long term (current) use of aspirin
CPT/HCPCS: 99211

== ENCOUNTER → 2023-02-15 | Outpatient (CLI) | payer MEDICARE, BC ==
[2023-02-15 12:24] VITALS: BP 146/91; PULSE 91; RESP 15; TEMP 98.2
--- NOTE | 2023-02-15 14:33 | P.PAINPG ---
PQRS Measure Charge Sheet Comment: A 73 yr old female with a history of severe and chronic low back pain x years secondary to post laminectomy syndrome, BL Sacroiliitis presents today for evaluation. Pain level is provoked at 8 /10 in intensity, constant, achy in character w sharp/ shooting towards BL flanks and BLEs. Pain is provoked by [place]/standing in cold weather. Pain is alleviated with PT semi weekly x 3 mo which she is currently in, heat, meds, heating pad use, sitting w LEs elevated, repositioning and rest. Oswestry axial pain score of 23. Interventional pain procedures completed include BL SI injection x4, Caudal YENIFER w lysis, TPIs L L3-L5 Patient is currently on [place], Advil, Ibuprofen, Voltaren gel Patient denies any side effects of the medication(s), denies excessive drowsiness or sleepiness, denies suicidal ideation and reports that the current pain medication is helping to control the pain and improve activities of daily living. Patient denies any motor or sensory deficits. Patient denies any fever or night sweats, denies any change in the bowel movements or urination. Physical Examination: -Constitutional: Cooperative. Not in acute distress . - Neurologic: Cranial nerve II to XII intact. No focal neurological deficits. - Psychatric: Alert & oriented x 3. Matching mood & appropriate affect. Judgment and insight intact. - Musculoskeletal: Cervical spine: Muscle bulk/ tone/ strength in the bilateral upper extremities normal Vertebral body tenderness to palpation over Spurling test positive Distraction test positive Facet loading test positive Thoracic spine Muscle bulk / tone/ strength in the bilateral paraspinal muscles normal Vertebral body tender to palpation over Facet loading test positive Lumbar spine: Motor bulk/ tone/ strength lower extremities , thigh and legs : 5/5 Deep tendon reflexes : Normal Knee Jerk. Normal Ankle Jerk . Vertebral body tenderness to palpation over L5 Lumbar Facet Loading Test positive Straight Leg Raise: positive at <30 degrees right side/ left side Gaenslen's Test positive Sacral spine : Severe tenderness over the Sacroiliac joint: right side / left side Range of motion: Flexion of the lumbar spine <60 degrees Range of motion: Extension of the lumbar spine <20 degrees Gaenslen's Test positive BL Parvez test: positive right side / left side BL Thigh Thrust Test Sacral Thrust Test Imaging: MRI without contrast of the lumbar spine from 12/28/21 reviewed Assessment and plan: Chronic low back pain secondary to post laminectomy syndrome, BL Sacroiliitis Recommendation of Caudal YENIFER w Lysis. Valium 5mg #2 NR to take prior to procedure. Use, side effects, adverse reactions, safe storage discussed. Pt acknowledged understanding. May need a series of injections for optimal pain relief. Risks, benefits of procedure discussed and pt verbalized understanding. Protocol for discontinuation/ continuation of medications urszula procedure discussed. All patient questions answered I have spent less than 30 minutes on patient care today. Dr Humphreys was available by phone for the evaluation of this patient. The time was used to review the medical records including relevant urine studies and Prescription history (MAPs), review of the available imaging, evaluation and examination of the patient, coordination of care with the medical staff and if applicable referring physicians, as well as creation of the medical record PQRS Narrative: Smoking Status Never smoker Narcotic Agreement Date Signed 10/16/18 Hx Alcohol Use (MH) Yes: social Home Medications: Ambulatory Orders Levothyroxine Sodium [Synthroid] 75 mcg PO DAILY 09/12/17 Ibuprofen [Advil] 600 mg PO QID PRN 08/21/18 Cyclobenzaprine [Flexeril] 5 mg PO HS 01/02/20 HYDROcodone/APAP 5-325MG [[place] 5-325] 1 tab PO Q6H PRN 01/02/20 Omeprazole 20 mg PO DAILY 01/24/20 traZODone HCL [Desyrel] 25 mg PO HS 12/23/21 Atorvastatin [Lipitor] 40 mg PO HS 30 Days #30 tab 06/17/22 Aspirin [Adult Low Dose Aspirin EC] 81 mg PO DAILY 11/18/22 diazePAM [Valium] 5 mg PO Q24H PRN 1 Days #2 tab 02/15/23 Controlled Substance Measures - Controlled Substance Measures Is patient prescribed a controlled substance at discharge?: Yes When asked, does pt state using other controlled substances?: Yes If prescribed controlled substance>3 days was MAPS reviewed?: Prescribed <3 Days
== END ==
LOC: PNWHC3 10:38
PROVIDERS: ATTEND Specialist
DX: M96.1 Postlaminectomy syndrome, not elsewhere classified (principal); M46.1 Sacroiliitis, not elsewhere classified; G89.29 Other chronic pain; Z79.82 Long term (current) use of aspirin; Z88.2 Allergy status to sulfonamides; Z91.048 Other nonmedicinal substance allergy status; Z88.8 Allergy status to other drugs, medicaments and biological substances
CPT/HCPCS: 99211

== ENCOUNTER → 2023-02-16 | Outpatient (CLI) | payer MEDICARE, BC | END | disposition home or self-care (01) | LOC: LABWHC1 13:32 | PROVIDERS: ATTEND Psychiatry & Neurology Neurology | DX: E55.9 Vitamin D deficiency, unspecified (principal); R53.83 Other fatigue | CPT/HCPCS: 36415; 82306; 82607 ==

== ENCOUNTER → 2023-02-16 | Outpatient (CLI) | payer MEDICARE, BC ==
--- NOTE | 2023-02-16 13:42 | CT ---
EXAMINATION TYPE: CT chest wo con DATE OF EXAM: 02/16/2023 COMPARISON: None HISTORY: cough CT DLP: 1325.4 mGycm. Automated Exposure Control for Dose Reduction was Utilized. TECHNIQUE: CT scan of the thorax is performed without IV contrast. FINDINGS: LUNGS: There are faint patchy bilateral groundglass infiltrates. There is interlobular septal thicken ing involving the lungs with most marked findings involving the lower lobes. There is mild basilar br onchiectasis with no consolidative pneumonia. No pleural effusion or focal pneumonia. Area no suspici ous pulmonary nodules. Underlying emphysematous changes. Attenuation within the trachea likely relate d to retained secretions. There is a calcific or tiny metallic density in the right upper lobe axial image 115 series 4. Additional punctate calcification right lower lobe image 201. MEDIASTINUM: Lack of IV contrast is noted to limit evaluation for mediastinal and especially hilar ad enopathy. There are no definitive greater than 1 cm hilar or mediastinal lymph nodes. No cardiomega ly. Coronary artery calcification. Atherosclerotic change aorta with a maximal dimension of 3.7 cm.. Trace of pericardial fluid. OTHER: Small hiatal hernia. Postsurgical change involving the vertebral column. Correlate for choleli thiasis. IMPRESSION: 1. COPD with findings compatible with pulmonary fibrosis. Favor UIP type. 2. Groundglass changes involving the lungs favor atelectasis and respiratory artifact over pneumoniti s, correlate clinically.
== END | disposition home or self-care (01) ==
LOC: RADCTMAIN 13:08
PROVIDERS: ATTEND Internal Medicine Critical Care Medicine
DX: J44.9 Chronic obstructive pulmonary disease, unspecified (principal); R05.3 Chronic cough
CPT/HCPCS: 71250

== ENCOUNTER 2023-03-02 06:37 | Day surgery (SDC) | payer MEDICARE, BC ==
[2023-03-02 07:18] VITALS: TEMP 97.3
[2023-03-02] MEDS ORDERED: methylPREDNISolone ACETATE 40 MG/ML 1 ML VIAL ONE (07:23)
[2023-03-02] MEDS ORDERED: IOPAMIDOL M200 10 ML VIAL ONE (07:23)
--- NOTE | 2023-03-02 07:44 | P.PCN ---
Date of Procedure: 03/02/23 Procedure(s) Performed: PREOP DIAGNOSIS: 1- Lumbar postlaminectomy syndrome. 2-sacroiliitis POSTOP DIAGNOSIS:1- Lumbar postlaminectomy syndrome. 2-sacroiliitis PROCEDURE: 1-Caudal epidural steroid injection with epidurolysis and epidurogram under fluoroscopic guidance. (Fluoroscopy images available in the radiology Department ) 2-caudal epidurogram. ANESTHESIA: local anesthesia with lidocaine 1% 5 ML only EBL: Minimal. PROCEDURE INDICATION: The patient with post-laminectomy syndrome with low back pain and radiculopathy radiating down in both legs, here for a caudal epidural steroid injection with epidurolysis. PROCEDURE DESCRIPTION: The patient was seen and identified in the preoperative area. Risks, benefits, complications, and alternatives were discussed with the patient. The patient agreed to proceed with the procedure and signed the consent. and vital signs were stable. Patient was taken to the OR and time out was completed. The patient was placed in the prone position on procedure table and a pillow was placed under the abdomen to reduce lumbar lordosis. The lumbosacral area was prepped and draped in the usual sterile fashion. Vital signs were closely monitored during the procedure. lateral view and the anterior-posterior plates of the sacrum were identified with infiltration of the area overlying the sacral hiatus with 1% lidocaine .A 17 gauge RK epidural needle was used to advance through the sacral hiatus into the caudal epidural space. Omnipaque 180 dye. 2cc was injected and the position of the needle was verified to be in the midline. A Racz catheter was introduced into the epidural space and was advanced towards the L5-S1 interspace under direct fluoroscopic guidance. Multiple passes were made with the catheter for lysis of epidural adhesions. Depo-Medrol 40 mg ( preservative-free ) with 3ml of preservative free Lidocaine 1% and 5 ml of preservative free normal saline was injected slowly. Additional spread was seen to L4 under fluoroscopy. The needle and the catheter were withdrawn intact. EPIDUROGRAM: Omnipaque 180 mg dye 2 ml was injected with spread of the dye into the caudal epidural space and with spread cutoff at L5 prior to epidurolysis. Post epidurolysis dye 2 ml was injected and spread was seen to L3-4.There was further spread of the solution together with the dye above the L3 COMPLICATIONS: None. DISPOSITION / PLANS: The patient was placed in a supine position and transferred to the recovery area in a stable condition for observation and was discharged from the recovery room after meeting discharge criteria. Home discharge instructions given to the patient by the staff. The patient was reexamined prior to discharge. The patient will schedule a follow up in the clinic in 2-4 weeks.
[2023-03-02 08:04] VITALS: RESP 20
--- NOTE | 2023-03-02 08:18 | FL ---
Intraoperative/procedural fluoroscopic services were provided. Total fluoroscopy time is 20.3 seconds with a total of 2 submitted images to PACS. Please see the operative/procedural note for further det ails. DAP: [id number] mGym2
[2023-03-02 08:27] VITALS: BP 148/78; PULSE 70
== END 2023-03-02 08:11 | disposition home or self-care (01) ==
LOC: ORPAIN 06:37
PROVIDERS: ATTEND Specialist
DX: M96.1 Postlaminectomy syndrome, not elsewhere classified (principal); M46.1 Sacroiliitis, not elsewhere classified; M54.50 Low back pain, unspecified; Z88.2 Allergy status to sulfonamides; Z91.048 Other nonmedicinal substance allergy status
CPT/HCPCS: 62264; J1030; Q9966

== ENCOUNTER → 2023-11-27 | Outpatient (CLI) | payer MEDICARE, BC ==
--- NOTE | 2023-11-27 14:12 | MR ---
EXAMINATION TYPE: MR cervical spine wo con DATE OF EXAM: 11/27/2023 12:47 PM COMPARISON: NONE HISTORY: xray on PACS, neck pain 2 years with headaches, no surgery no injury, no CA Multiplanar MultiSpin echo imaging of the cervical spine was performed. Comparison: none C2-C3: No evidence for degenerative disc disease. No disc bulge/herniation or protrusion. No Canal stenosis. Foramina are patent bilaterally. C3-C4: No evidence for degenerative disc disease. No disc bulge/herniation or protrusion. No Canal stenosis. Foramina are patent bilaterally. C4-C5: Mild decreased signal and loss of height compatible degenerative disc disease. Mild posterior disc bulge without evidence for herniation or protrusion. No central stenosis seen. Mild right forami nal encroachment noted secondary to degenerative change of the cervical apophyseal joints. C5-C6: Mild decreased signal and loss of height compatible degenerative disc disease. Mild posterior disc bulge without evidence for herniation or protrusion. No central stenosis seen. Mild right forami nal encroachment noted secondary to degenerative change of the cervical apophyseal joints. C6-C7: Mild decreased signal and loss of height compatible degenerative disc disease. 2 mm anterolist hesis of C6 on C7. Mild posterior disc bulge without evidence for herniation or protrusion. No centra l stenosis seen. Mild bilateral foraminal encroachment noted secondary to degenerative change of the cervical apophyseal joints. C7-T1: Moderate disc disease and desiccation. Small right paracentral disc protrusion mildly effaces the ventral thecal sac with distortion of the ventral cervical spinal cord however no definite contac t appreciated. No central stenosis or foraminal encroachment. Cervical segments are intact. There is normal alignment. Cervical spinal cord is of normal signal. Craniovertebral junction relationships are within normal limits. IMPRESSION: 1. Multilevel degenerative disc disease as discussed. 2. Small disc protrusion at C7-T1 paracentrally to the right.
== END | disposition home or self-care (01) ==
LOC: RADMRIMAIN 11:26
PROVIDERS: ATTEND Orthopaedic Surgery
DX: M50.23 Other cervical disc displacement, cervicothoracic region (principal); M50.30 Other cervical disc degeneration, unspecified cervical region; M47.812 Spondylosis without myelopathy or radiculopathy, cervical region
CPT/HCPCS: 72141

== ENCOUNTER → 2024-03-20 | Outpatient (CLI) | payer MEDICARE, BC ==
--- NOTE | 2024-03-21 14:39 | MM ---
Reason for Exam: Screening (asymptomatic). Last mammogram was performed 2 year(s) and 5 month(s) ago. Patient History: Menarche at age 12. First Full-Term at age 25. Hysterectomy at age 45. Postmenopausal. Estrogen, starting at age 48 for 15 years. 1987, Excisional Biopsy on the Left side. Sister had breast cancer, age 53. Risk Values: Melyssa 5 year model risk: 3.7%. NCI Lifetime model risk: 7.5%. Prior Study Comparison: 10/05/2018 Bilateral Screening Mammogram, [facility]. 11/26/2019 Bilateral Screening Mammogram, [facility]. 10/06/2021 Bilateral MG 3D screening mammo w/cad, [facility]. Tissue Density: There are scattered areas of fibroglandular density. Findings: Analyzed By CAD. There is no suspicious group of microcalcifications or new suspicious mass in either breast. Overall Assessment: Negative, BI-RAD 1 Management: Screening Mammogram of both breasts in 1 year. . Patient should continue monthly self-breast exams. A clinical breast exam by your physician is recommended on an annual basis. This exam should not preclude additional follow-up of suspicious palpable abnormalities. Note on Melyssa scores and lifetime risk: 1. A Melyssa score greater than 3% is considered moderate risk. If this is the case, consider specialist referral to assess eligibility for a risk reducing agent. 2. If overall lifetime risk for the development of breast cancer is 20% or higher, the patient may qualify for future screening with alternating mammogram and breast MRI. [facility], , 03/21/2024 2:36 PM. Electronically signed and approved by: Fawad Moraes M.D. Radiologis
--- NOTE | 2024-03-23 21:31 | BD ---
EXAMINATION TYPE: Axial Bone Density DATE OF EXAM: 03/20/2024 CLINICAL HISTORY: 74 years old Female. ICD-10 CODE: Z780 [place] , Additional History: Height: 61 Weight: 196.6 FRAX RISK QUESTIONS: Alcohol (3 or more units per day): no Family History (Parent hip fracture): no Glucocorticoids (More than 3mos): no (Ex: prednisone, prednisolone, methylprednisolone, dexamethasone, and hydrocortisone). History of Fracture in Adulthood: no Secondary Osteoporosis: no 1. Type 1 Diabetes: no 2. Hyperthyroidism: no 3. Menopause before 45: no 4. Malnutrition: no 5. Chronic liver disease: no Rheumatoid Arthritis: no Current Tobacco Use: no RISK FACTORS HISTORY OF: Hip Fracture (Right/Left): no Spine Fracture: yes History of Wrist Fracture: no Surgery to Spine/Hip(right/left)/Wrist (right/left): Lt Hip replaced, LS-Spine surgery with hardware When: 2017 MEDICATIONS: Thyroid Medications: no Osteoporosis Medications: no EXAM MEASUREMENTS: Bone mineral density about the R hip (g/cm2): 1.186 T Score values are as follows: -----R Neck: 1.0 -----R Total: 1.4 Z Score values are as follows: -----R Neck:2.5 -----R Total: 2.6 Bone mineral density has: decreased -0.3 % since study of: 10/06/2021 Bone mineral density about the L Wrist (g/cm2): 0.616 T Score values are as follows: -----Dist. R+U: -0.4 -----Prox. R+U: -0.8 -----Radius total: -1.0 Z Score values are as follows: -----Dist. R+U: 2.0 -----Prox. R+U: 1.6 -----Radius total: 1.4 Bone mineral density has: decreased -13.9 % since study of: 10/06/2021 FRAX%s: The graph provided illustrates a 5.6% chance for a major osteoporotic fx and a 0.3% chance fo r the hips probability for fx in 10 years time. IMPRESSION: Normal (Values between +1 and -1 indicate normal bone mass). Consider repeating this study in 5 year s or sooner if there is some new clinical indication. NOTE: T-SCORE=SD OF THE YOUNG ADULT MEAN. [facility], , 03/23/2024 9:29 PM
== END | disposition home or self-care (01) ==
LOC: RADMAMWWP 14:16
PROVIDERS: ATTEND Internal Medicine Geriatric Medicine
DX: Z12.31 Encounter for screening mammogram for malignant neoplasm of breast (principal); R92.323 Mammographic fibroglandular density, bilateral breasts; Z78.0 Asymptomatic menopausal state; Z80.3 Family history of malignant neoplasm of breast
CPT/HCPCS: 77063; 77067; 77080

== ENCOUNTER → 2024-05-27 | Outpatient (CLI) | payer MEDICARE, BC ==
[2024-05-27 14:50] VITALS: BP 133/80; PULSE 72; RESP 13
--- NOTE | 2024-05-27 15:24 | P.PAINPG ---
PQRS Measure Charge Sheet Comment: A 74 yr old female w at side with a history of severe and chronic low back pain x years secondary to post laminectomy syndrome, BL Sacroiliitis presents today for evaluation s/p Caudal YENIFER w Lysis. Pt states she experienced 60-70 % pain relief x 1 yr s/p procedure. Pain level is provoked at 6 /10 in intensity, predominantly axial, constant, achy in character w sharp/ shooting towards the thighs. Pain is provoked by walking/standing in cold weather. Pain is alleviated with PT semi weekly x 3 mo which she is currently in, heat, meds, heating pad use, sitting w LEs elevated, repositioning and rest. Interventional pain procedures completed include BL SI injection x4, Caudal YENIFER w lysis x2 (Mar 2023), TPIs L L3-L5 Patient is currently on [place], Advil, Voltaren gel Patient denies any side effects of the medication(s), denies excessive drowsiness or sleepiness, denies suicidal ideation and reports that the current pain medication is helping to control the pain and improve activities of daily living. Patient denies any motor or sensory deficits. Patient denies any fever or night sweats, denies any change in the bowel movements or urination. Physical Examination: -Constitutional: Cooperative. Not in acute distress . - Neurologic: Cranial nerve II to XII intact. No focal neurological def icits. - Psychatric: Alert & oriented x 3. Matching mood & appropriate affect. Judgment and insight intact. - Musculoskeletal: Cervical spine: Muscle bulk/ tone/ strength in the bilateral upper extremities normal Vertebral body tenderness to palpation over Spurling test positive Distraction test positive Facet loading test positive Thoracic spine Muscle bulk / tone/ strength in the bilateral paraspinal muscles normal Vertebral body tender to palpation over Facet loading test positive Lumbar spine: Motor bulk/ tone/ strength lower extremities , thigh and legs : 5/5 Deep tendon reflexes : Normal Knee Jerk. Normal Ankle Jerk . Vertebral body tenderness to palpation over L2 Jerez test positive BL L2-L3 Lumbar Facet Loading Test positive Straight Leg Raise: positive at <30 degrees right side/ left side Gaenslen's Test positive Sacral spine : Severe tenderness over the Sacroiliac joint: right side / left side Range of motion: Flexion of the lumbar spine <60 degrees Range of motion: Extension of the lumbar spine <20 degrees Gaenslen's Test positive BL Parvez test: positive right side / left side BL Thigh Thrust Test Sacral Thrust Test Imaging: MRI without contrast of the lumbar spine from 12/28/21 reviewed Assessment and plan: Chronic LBP secondary to post laminectomy syndrome, BL Sacroiliitis Recommendation of YENIFER L2-L3 #2. Risks, benefits of procedure discussed and pt verbalized understanding. Protocol for discontinuation/ continuation of medications urszula procedure discussed. All patient questions answered I have spent less than 30 minutes on patient care today. Dr Humphreys was available by phone for the evaluation of this patient. The time was used to review the medical records including relevant urine studies and Prescription history (MAPs), review of the available imaging, evaluation and examination of the patient, coordination of care with the medical staff and if applicable referring physicians, as well as creation of the medical record - Pain Location Lower Back Non-Pharmacological Interventions: Heat Pharmacological Interventions: PRN Medication, Topical Medication PQRS Narrative: Smoking Status Never smoker Narcotic Agreement Date Signed 10/16/18 Hx Alcohol Use (MH) Yes: social Home Medications: Ambulatory Orders Levothyroxine Sodium [Synthroid] 75 mcg PO QAM 09/12/17 Ibuprofen [Advil] 600 mg PO QID PRN 08/21/18 Cyclobenzaprine [Flexeril] 5 mg PO HS PRN 01/02/20 HYDROcodone/APAP 5-325MG [[place] 5-325] 1 tab PO Q6H PRN 01/02/20 Omeprazole 20 mg PO BID 01/24/20 traZODone HCL [Desyrel] 25 mg PO HS PRN 12/23/21 Atorvastatin [Lipitor] 40 mg PO HS 30 Days #30 tab 06/17/22 Aspirin [Adult Low Dose Aspirin EC] 81 mg PO BID 11/18/22 Cyanocobalamin (Vitamin B-12) [Vitamin B-12] 5,000 mcg PO QAM 03/01/23 Fluticasone Nasal [place] [Flonase Nasal [place]] 1 spray NASAL BID PRN 03/01/23 Fluticasone/Umeclidin/Vilanter [Trelegy Ellipta 200-62.5-25] 1 dose INHALATION DAILY PRN 03/01/23 Montelukast [Singulair] 10 mg PO QAM 03/01/23 diazePAM [Valium] 10 mg PO ONCE 1 Days #2 tab 05/27/24 Controlled Substance Measures - Controlled Substance Measures Is patient prescribed a controlled substance at discharge?: Yes When asked, does pt state using other controlled substances?: No If prescribed controlled substance>3 days was MAPS reviewed?: Prescribed <3 Days
== END ==
LOC: PNWHC3 14:26
PROVIDERS: ATTEND Specialist
DX: M96.1 Postlaminectomy syndrome, not elsewhere classified (principal); M46.1 Sacroiliitis, not elsewhere classified; G89.29 Other chronic pain; Z88.1 Allergy status to other antibiotic agents; Z91.09 Other allergy status, other than to drugs and biological substances; Z88.2 Allergy status to sulfonamides
CPT/HCPCS: 99212

== ENCOUNTER → 2024-06-27 | Outpatient (CLI) | payer MEDICARE, BC ==
[2024-06-27 15:07] VITALS: BP 159/88; PULSE 95; RESP 16
--- NOTE | 2024-06-27 15:40 | P.PAINPG ---
PQRS Measure Charge Sheet Comment: A 74 yr old female w at side with a history of severe and chronic low back pain x years secondary to post laminectomy syndrome, BL Sacroiliitis presents today for evaluation s/p YENIFER L2-L3 #2. Pt states she experienced 60 % pain relief x 2 wks s/p procedure. Pain level is provoked at 6 /10 in intensi ty, predominantly axial, constant, achy in character w sharp/ shooting towards the BLEs. Pain is provoked by walking/standing in cold weather. Pain is alleviated with PT semi weekly x 3 mo which she is currently in, heat, meds, heating pad use, sitting w LEs elevated, repositioning and rest. Interventional pain procedures completed include BL SI injection x4, Caudal YENIFER w lysis x2 (Mar 2023), TPIs L L3-L5, YENIFER L2-L3 x1 (06/25) Patient is currently on [place], Advil, Voltaren gel Patient denies any side effects of the medication(s), denies excessive drowsiness or sleepiness, denies suicidal ideation and reports that the current pain medication is helping to control the pain and improve activities of daily living. Patient denies any motor or sensory deficits. Patient denies any fever or night sweats, denies any change in the bowel movements or urination. Physical Examination: -Constitutional: Cooperative. Not in acute distress . - Neurologic: Cranial nerve II to XII intact. No focal neurological deficits. - Psychatric: Alert & oriented x 3. Matching mood & appropriate affect. Judgment and insight intact. - Musculoskeletal: Cervical spine: Muscle bulk/ tone/ strength in the bilateral upper extremities normal Vertebral body tenderness to palpation over Spurling test positive Distraction test positive Facet loading test positive Thoracic spine Muscle bulk / tone/ strength in the bilateral paraspinal muscles normal Vertebral body tender to palpation over Facet loading test positive Lumbar spine: Motor bulk/ tone/ strength lower extremities , thigh and legs : 5/5 Deep tendon reflexes : Normal Knee Jerk. Normal Ankle Jerk . Vertebral body tenderness to palpation over L5 Jerez test positive BL L5-S1 Lumbar Facet Loading Test positive Straight Leg Raise: positive at <30 degrees right side/ left side Gaenslen's Test positive Sacral spine : Severe tenderness over the Sacroiliac joint: right side / left side Range of motion: Flexion of the lumbar spine <60 degrees Range of motion: Extension of the lumbar spine <20 degrees Gaenslen's Test positive BL Parvez test: positive right side / left side BL Thigh Thrust Test Sacral Thrust Test Imaging: MRI without contrast of the lumbar spine from 12/28/21 reviewed Assessment and plan: Chronic LBP secondary to post laminectomy syndrome, BL Sacroiliitis Recommendation of Caudal YENIFER w Lysis. Risks, benefits of procedure discussed and pt verbalized understanding. Protocol for discontinuation/ continuation of medications urszula procedure discussed. All patient questions answered I have spent less than 30 minutes on patient care today. Dr Humphreys was available by phone for the evaluation of this patient. The time was used to review the medical records including relevant urine studies and Prescription history (MAPs), review of the available imaging, evaluation and examination of the patient, coordination of care with the medical staff and if applicable referring physicians, as well as creation of the medical record PQRS Narrative: Smoking Status Never smoker Narcotic Agreement Date Signed 10/16/18 Hx Alcohol Use (MH) Yes: social Home Medications: Ambulatory Orders Levothyroxine Sodium [Synthroid] 75 mcg PO QAM 09/12/17 Ibuprofen [Advil] 600 mg PO QID PRN 08/21/18 Cyclobenzaprine [Flexeril] 5 mg PO HS PRN 01/02/20 Omeprazole 20 mg PO DAILY 01/24/20 traZODone HCL [Desyrel] 25 mg PO HS PRN 12/23/21 Atorvastatin [Lipitor] 40 mg PO HS 30 Days #30 tab 06/17/22 Aspirin [Adult Low Dose Aspirin EC] 162 mg PO BID 11/18/22 Cyanocobalamin (Vitamin B-12) [Vitamin B-12] 5,000 mcg PO QAM 03/01/23 Fluticasone Nasal [place] [Flonase Nasal [place]] 1 spray NASAL BID PRN 03/01/23 Fluticasone/Umeclidin/Vilanter [Trelegy Ellipta 200-62.5-25] 1 dose INHALATION DAILY PRN 03/01/23 Montelukast [Singulair] 10 mg PO HS 03/01/23 diazePAM [Valium] 10 mg PO ONCE 1 Days #2 tab 05/27/24 Biotin 1000mcg 1 tab PO DAILY 06/05/24 HYDROcodone/APAP 10-325MG [[place] 10-325] 1 tab PO DIRECTED PRN 06/05/24 Loratadine [Claritin] 10 mg PO DAILY PRN 06/05/24 Unk Calcium/Vit D 1 tab PO DAILY 06/05/24 Unk Multi Vitamin 1 tab PO DAILY 06/05/24 Controlled Substance Measures - Controlled Substance Measures Is patient prescribed a controlled substance at discharge?: Yes When asked, does pt state using other controlled substances?: No If prescribed controlled substance>3 days was MAPS reviewed?: Prescribed <3 Days
[2024-06-28 03:10] LABS: Blood Urea Nitrogen 25.2 mg/dL (9.0-27.0)
== END ==
LOC: PNWHC3 14:55
PROVIDERS: ATTEND Specialist
DX: M96.1 Postlaminectomy syndrome, not elsewhere classified (principal); M46.1 Sacroiliitis, not elsewhere classified; G89.29 Other chronic pain; Z88.2 Allergy status to sulfonamides; Z91.09 Other allergy status, other than to drugs and biological substances; Z88.1 Allergy status to other antibiotic agents
CPT/HCPCS: 82565; 84520; G0463; 99211

== ENCOUNTER → 2024-07-03 | Outpatient (CLI) | payer MEDICARE, BC ==
--- NOTE | 2024-07-03 13:18 | CT ---
EXAMINATION TYPE: CT lumbar spine w con CT DLP: 841 mGycm, Automated exposure control for dose reduction was used. DATE OF EXAM: 07/03/2024 12:57 PM COMPARISON: MRI lumbar spine 12/28/2021, CT lumbar spine 08/11/2017. CLINICAL INDICATION:Female, 74 years old with history of M96.1 Post laminectomy pain syndrome; PHH, b ack pain after multiple back and hip sx., pain TECHNIQUE: Multiple axial images were obtained from the midportion of T11 through the sacroiliac fabio nts. Soft tissue and bone windows in coronal and sagittal planes were obtained and reviewed. Contrast used:80ml mL of Isovue 300 with IV Contrast, none. Oral contrast used: none. FINDINGS: Postsurgical changes from posterior lumbar fusion with laminectomy with bilateral pedicle screws and rods involving L2-S1. Hardware appears intact with appropriate alignment. Disc spacer identified at L 4-L5. Hardware creates streak artifact which limits evaluation. No acute fracture. Vertebral body hei ghts are maintained with normal alignment. Slight S-shaped scoliotic curvature of the thoracolumbar s pine. Multilevel disc space narrowing with endplate sclerosis and vacuum disc disease most pronounced involving the upper lumbar spine. No paravertebral fluid collections identified. No significant degenerative disc disease or facet arthropathy at T11-T12. Broad-based disc bulge with mild effacement of the anterior thecal sac at T12-L1. Bilateral facet art hropathy. Mild bilateral neural foraminal stenosis. Broad-based disc bulge with mild effacement of the anterior thecal sac at L1-L2. Bilateral facet arth ropathy. Mild central canal stenosis. Moderate right and mild left neural foraminal stenosis. No gross evidence of significant central canal or neural foraminal stenosis at L2-L3. No gross evidence of significant central canal or neural foraminal stenosis at L3-L4. No gross evidence of significant central canal or neural foraminal stenosis at L4-L5. No gross evidence of significant central canal or neural foraminal stenosis at L5-S1. Degenerative changes of the bilateral SI joints. Atherosclerotic calcification of the aorta. Cholelithiasis. Distal colonic diverticulosis without vis ualized acute diverticulitis. IMPRESSION: 1. No evidence for acute spinal fracture. 2. Postsurgical changes of the lumbosacral spine from L2 through S1 as described above. Hardware appe ars intact. This creates streak artifact limits evaluation. No high-grade stenosis involving the lowe r lumbar spine within limitations. 3. Moderate multilevel degenerative disease of the visualized upper lumbar spine. 4. Cholelithiasis. 5. Colonic diverticulosis. [facility], , 07/03/2024 1:16 PM
== END | disposition home or self-care (01) ==
LOC: RADCTMAIN 11:41
PROVIDERS: ATTEND Specialist
DX: M96.1 Postlaminectomy syndrome, not elsewhere classified (principal); M51.360 Other intervertebral disc degeneration, lumbar region with discogenic back pain only; K80.20 Calculus of gallbladder without cholecystitis without obstruction; K57.30 Diverticulosis of large intestine without perforation or abscess without bleeding
CPT/HCPCS: 72132; Q9967

== ENCOUNTER 2024-08-02 09:08 | Day surgery (SDC) | payer MEDICARE, BC ==
[2024-08-02 09:52] VITALS: TEMP 98.8
[2024-08-02] MEDS: LACTATED RINGERS 1,000 ML IV SCH (09:58)
[2024-08-02] MEDS: IV FLUID CONTINUATION 1,000 ML IV ONE (10:00)
[2024-08-02] MEDS ORDERED: MIDAZOLAM 2 MG/2 ML VIAL ONE (10:18)
[2024-08-02] MEDS ORDERED: fentaNYL (PF) 50 MCG/ML 2 ML AMP ONE (10:18)
[2024-08-02] MEDS ORDERED: methylPREDNISolone ACETATE 40 MG/ML 1 ML VIAL ONE (10:18)
[2024-08-02] MEDS ORDERED: IOPAMIDOL M200 10 ML VIAL ONE (10:18)
--- NOTE | 2024-08-02 10:40 | P.PCN ---
Date of Procedure: 08/02/24 Procedure(s) Performed: PREOP DIAGNOSIS: 1- Lumbar postlaminectomy syndrome. 2-sacroiliitis POSTOP DIAGNOSIS:1- Lumbar postlaminectomy syndrome. 2-sacroiliitis PROCEDURE: 1-Caudal epidural steroid injection with epidurolysis and epidurogram under fluoroscopic guidance. (Fluoroscopy images available in the radiology Department ) 2-caudal epidurogram. ANESTHESIA: Moderate sedation with Versed 2 mg and fentanyl 100 mcg, (sedation is started 10:18 ended 10:31 ) EBL: Minimal. PROCEDURE INDICATION: The patient with post-laminectomy syndrome with low back pain and radiculopathy radiating down in both legs, here for a caudal epidural steroid injection with epidurolysis. PROCEDURE DESCRIPTION: The patient was seen and identified in the preoperative area. Risks, benefits, complications, and alternatives were discussed with the patient. The patient agreed to proceed with the procedure and signed the consent. and vital signs were stable. Patient was taken to the OR and time out was completed. The patient was placed in the prone position on procedure table and a pillow was placed under the abdomen to reduce lumbar lordosis. The lumbosacral area was prepped and draped in the usual sterile fashion. Vital signs were closely monitored during the procedure. lateral view and the anterior-posterior plates of the sacrum were identified with infiltration of the area overlying the sacral hiatus with 1% lidocaine .A 17 gauge RK epidural needle was used to advance through the sacral hiatus into the caudal epidural space. Omnipaque 180 dye. 2cc was injected and the position of the needle was verified to be in the midline. A Racz catheter was introduced into the epidural space and was advanced towards the L5-S1 interspace under direct fluoroscopic guidance. Multiple passes were made with the catheter for lysis of epidural adhesions. Depo-Medrol 40 mg ( preservative-free ) with 3ml of preservative free Lidocaine 1% and 5 ml of preservative free normal saline was injected slowly. Additional spread was seen to L4 under fluoroscopy. The needle and the catheter were withdrawn intact. EPIDUROGRAM: Omnipaque 180 mg dye 2 ml was injected with spread of the dye into the caudal epidural space and with spread cutoff at L5 prior to epidurolysis. Post epidurolysis dye 2 ml was injected and spread was seen to L3-4.There was further spread of the solution together with the dye above the L3 COMPLICATIONS: None. DISPOSITION / PLANS: The patient was placed in a supine position and transferred to the recovery area in a stable condition for observation and was discharged from the recovery room after meeting discharge criteria. Home discharge instructions given to the patient by the staff. The patient was reexamined prior to discharge. The patient will schedule a follow up in the clinic in 2-4 weeks.
[2024-08-02] MEDS: IV FLUID CONTINUATION 800 ML IV ONE (10:42)
[2024-08-02 10:45] VITALS: RESP 16
--- NOTE | 2024-08-02 10:48 | FL ---
EXAMINATION TYPE: FL guided pain mgmt statistic DATE OF EXAM: 08/02/2024 CLINICAL INDICATION: Female, 74 years old with history of PAIN; [facility], TECHNIQUE: Fluoroscopy. COMPARISON: None. FINDINGS: Fluoroscopic guidance was provided during pain relief procedure performed by Dr. Humphreys . A total of 9.3 seconds of fluoroscopic time was utilized during the procedure and two spot images are acquired. Images acquired shows needle localization in the posterior sacrum. Extensive postsurgi marisel change to the lower lumbar spine extending into the sacrum is present. Multilevel degenerative ch anges are seen. Total DAP: 0.11688 mGym2. IMPRESSION: As Above. [facility], , 08/02/2024 10:45 AM
[2024-08-02 10:58] VITALS: BP 137/84; PULSE 80
== END 2024-08-02 11:27 | disposition home or self-care (01) ==
LOC: ORPAIN 09:08
PROVIDERS: ATTEND Specialist
DX: M96.1 Postlaminectomy syndrome, not elsewhere classified (principal); M46.1 Sacroiliitis, not elsewhere classified
CPT/HCPCS: 62264; J2250; J3010; Q9966; J1010; 99152

== ENCOUNTER → 2024-08-23 | Outpatient (CLI) | payer MEDICARE, BC ==
--- NOTE | 2024-08-24 11:17 | MR ---
EXAMINATION TYPE: MR lumbar spine wo con DATE OF EXAM: 08/23/2024 11:39 AM COMPARISON: CT 07/03/2024 CLINICAL INDICATION: Female, 74 years old with history of M54.16 RADICULOPATHY LUMBAR REGION, Low sana k pain in left buttocks and leg TECHNIQUE: Multiplanar, multisequence images of the lumbar spine were acquired. IV Contrast: mL (None, if empty) FINDINGS: Cord ends at the L1-L2 level. Pedicle screws and fixation rods are extending from L2 throu gh S1. This causes some mass effect susceptibility artifact causing moderate limitation at the disc l evels. There is disc space narrowing and degenerative endplate changes L5-S1 mild diffuse disc space narrowing is seen in the remaining lumbar spine. L5-S1: No focal disc herniation or significant disc bulge. No spinal canal stenosis. Neural foramen are patent. Laminectomy is present. L4-L5: No focal disc herniation or significant disc bulge. No spinal canal stenosis. Neural foramen are patent. L3-L4: No focal disc herniation or significant disc bulge. No spinal canal stenosis. Moderate right foraminal narrowing is present. L2-L3: No focal disc herniation or significant disc bulge. No spinal canal stenosis. Right foramen i s not well visualized L1-L2: No focal disc herniation or significant disc bulge. No spinal canal stenosis. Neural foramen are patent. Facet hypertrophy has posterior lateral thecal sac impression. Some lateral canal narrow ing appears to be present. T12-L1: No focal disc herniation or significant disc bulge. No spinal canal stenosis. Moderate to se trevon left foraminal stenosis may be present. IMPRESSION: 1. There is some limitation of the examination due to magnetic susceptibility artifact from prior fix ation pedicle screws. 2. There may be some moderate to severe left foraminal stenosis T12-L1, right L2-3 and moderate right L3-4. Correlate with radicular symptoms. 2. Some lateral canal narrowing secondary to facet hypertrophy with posterior lateral thecal sac comp ression is present L1-2. [facility], , 08/24/2024 11:15 AM
== END | disposition home or self-care (01) ==
LOC: RADMRIMAIN 10:35
PROVIDERS: ATTEND Neurological Surgery
DX: M48.061 Spinal stenosis, lumbar region without neurogenic claudication (principal); M47.26 Other spondylosis with radiculopathy, lumbar region; M43.27 Fusion of spine, lumbosacral region
CPT/HCPCS: 72148

== ENCOUNTER → 2024-08-28 | Outpatient (CLI) | payer MEDICARE, BC ==
[2024-08-28 13:42] VITALS: BP 138/92; PULSE 86; RESP 16
--- NOTE | 2024-08-28 16:55 | P.PAINPG ---
PQRS Measure Charge Sheet Comment: A 74 yr old female w at side with a history of severe and chronic low back pain x years secondary to L2-S1 fixation, L5-S1 radiculopathy, BL Sacroiliitis presents today for evaluation s/p Caudal YENIFER w Lysis. Pt states she experienced 80 % pain relief x 3 wks s/p procedure. Pain level is provoked at 7 /10 in intensity, predominantly axial, constant, achy in character w sharp/ shooting towards the BLEs. Pain is provoked by walking/standing in cold weather. Pain is alleviated with PT semi weekly x 3 mo which she is currently in, heat, meds, heating pad use, sitting w LEs elevated, repositioning and rest. Interventional pain procedures completed include BL SI injection x4, Caudal YENIFER w lysis x3 (03/23, 08/23), TPIs L L3-L5, YENIFER L2-L3 x1 (06/25) Patient is currently on [place], Advil, Voltaren gel Patient denies any side effects of the medication(s), denies excessive drowsiness or sleepiness, denies suicidal ideation and reports that the current pain medication is helping to control the pain and improve activities of daily living. Patient denies any motor or sensory deficits. Patient denies any fever or night sweats, denies any change in the bowel movements or urination. Physical Examination: -Constitutional: Cooperative. Not in acute distress . - Neurologic: Cranial nerve II to XII intact. No focal neurological deficits. - Psychatric: Alert & oriented x 3. Matching mood & appropriate affect. Judgment and insight intact. - Musculoskeletal: Cervical spine: Muscle bulk/ tone/ strength in the bilateral upper extremities normal Vertebral body tenderness to palpation over Spurling test positive Distraction test positive Facet loading test positive Thoracic spine Muscle bulk / tone/ strength in the bilateral paraspinal muscles normal Vertebral body tender to palpation over Facet loading test positive Lumbar spine: Motor bulk/ tone/ strength lower extremities , thigh and legs : 5/5 Deep tendon reflexes : Normal Knee Jerk. Normal Ankle Jerk . Vertebral body tenderness to palpation over L5 Jerez test positive BL L5-S1 Lumbar Facet Loading Test positive Straight Leg Raise: positive at <30 degrees right side/ left side Gaenslen's Test positive Sacral spine : Severe tenderness over the Sacroiliac joint: right side / left side Range of motion: Flexion of the lumbar spine <60 degrees Range of motion: Extension of the lumbar spine <20 degrees Gaenslen's Test positive BL Parvez test: positive right side / left side BL Thigh Thrust Test Sacral Thrust Test Imaging: MRI without contrast of the lumbar spine from 08/23/24 reviewed Assessment and plan: Chronic LBP secondary to L2-S1 fixation, L5-S1 radiculopathy, BL Sacroiliitis Recommendation of Caudal YENIFER #2. Risks, benefits of procedure discussed and pt verbalized understanding. Protocol for discontinuation/ continuation of medications urszula procedure discussed. Behavioral health script for SCS trial, likely at [facility] in [place] M54.16, G89.4. All patient questions answered I have spent less than 30 minutes on patient care today. Dr Humphreys was available by phone for the evaluation of this patient. The time was used to review the medical records including relevant urine studies and Prescription history (MAPs), review of the available imaging, evaluation and examination of the patient, coordination of care with the medical staff and if applicable referring physicians, as well as creation of the medical record PQRS Narrative: Smoking Status Never smoker Narcotic Agreement Date Signed 10/16/18 Hx Alcohol Use (MH) Yes: social Home Medications: Ambulatory Orders Levothyroxine Sodium [Synthroid] 75 mcg PO QAM 09/12/17 Ibuprofen [Advil] 600 mg PO QID PRN 08/21/18 Cyclobenzaprine [Flexeril] 5 mg PO HS PRN 01/02/20 Omeprazole 20 mg PO DAILY 01/24/20 traZODone HCL [Desyrel] 25 mg PO HS PRN 12/23/21 Atorvastatin [Lipitor] 40 mg PO HS 30 Days #30 tab 06/17/22 Aspirin [Adult Low Dose Aspirin EC] 162 mg PO DAILY 11/18/22 Cyanocobalamin (Vitamin B-12) [Vitamin B-12] 5,000 mcg PO QAM 03/01/23 Fluticasone Nasal [place] [Flonase Nasal [place]] 1 spray NASAL BID PRN 03/01/23 Fluticasone/Umeclidin/Vilanter [Trelegy Ellipta 200-62.5-25] 1 dose INHALATION DAILY PRN 03/01/23 Montelukast [Singulair] 10 mg PO HS 03/01/23 Biotin 1000mcg 1 tab PO DAILY 06/05/24 HYDROcodone/APAP 10-325MG [[place] 10-325] 1 tab PO DIRECTED PRN 06/05/24 Loratadine [Claritin] 10 mg PO DAILY PRN 06/05/24 Unk Calcium/Vit D 1 tab PO DAILY 06/05/24 Unk Multi Vitamin 1 tab PO DAILY 06/05/24 LORazepam 1 mg PO DAILY 1 Days #2 tab 08/28/24 Controlled Substance Measures - Controlled Substance Measures Is patient prescribed a controlled substance at discharge?: Yes When asked, does pt state using other controlled substances?: No If prescribed controlled substance>3 days was MAPS reviewed?: Prescribed <3 Days
== END ==
LOC: PNWHC3 13:00
PROVIDERS: ATTEND Specialist
DX: M47.27 Other spondylosis with radiculopathy, lumbosacral region (principal); M46.1 Sacroiliitis, not elsewhere classified; G89.29 Other chronic pain; Z91.048 Other nonmedicinal substance allergy status; Z88.8 Allergy status to other drugs, medicaments and biological substances; Z88.2 Allergy status to sulfonamides
CPT/HCPCS: 99211

== ENCOUNTER 2024-09-06 06:31 | Day surgery (SDC) | payer MEDICARE, BC ==
[2024-09-04 14:33] VITALS: BMI 26.4
[2024-09-06 07:02] VITALS: TEMP 96.8
[2024-09-06] MEDS ORDERED: methylPREDNISolone ACETATE 80 MG/ML 1 ML VIAL ONE (07:41)
[2024-09-06] MEDS ORDERED: IOPAMIDOL M200 10 ML VIAL ONE (07:41)
--- NOTE | 2024-09-06 07:58 | P.PCN ---
Date of Procedure: 09/06/24 Procedure(s) Performed: PREOPERATIVE DIAGNOSIS: Lumbar post laminectomy syndrome. POSTOPERATIVE DIAGNOSIS: Lumbar post laminectomy syndrome. PROCEDURE: 1. Caudal epidural steroid injection under fluoroscopic guidance. (Fluoroscopy images available in the radiology department ) 2. Caudal epidurogram ANESTHESIA: Local with 1% lidocaine; 5ml . EBL: None. PROCEDURE INDICATION: The patient with neuropathic pain radiating distally returns for caudal epidural steroid injection. PROCEDURE DESCRIPTION: The patient was seen and identified in the preoperative area. Risks, benefits, complications, and alternatives were discussed with the patient. The patient agreed to proceed with the procedure and signed the consent, and vital signs were stable. Patient was taken to the OR and time out was completed. The patient was placed in the prone position on procedure table and a pillow was placed under the abdomen to reduce lumbar lordosis. The lumbosacral area was prepped and draped in the usual sterile fashion. Critical pause was taken. Vital signs were closely monitored during the procedure. Using lateral fluoroscopy the anterior-posterior plates of the sacrum were identified and the skin and deeper tissues corresponding into sacrococcygeal ligament were anesthetized using approximately 3 mL of 1% lidocaine. Then under fluoroscopy, a 3-1/2-inch 20-gauge Tuohy epidural needle was guided through the sacrococcygeal ligament, and into the epidural space. After negative aspiration, a 2 mL of Isovue 200 contrast dye was injected with excellent epidurogram. Again after negative aspiration for CSF, blood, and with no paresthesias, then Depo-Medrol 60mg, 2ml of 1% preservative free Lidocaine with 6 ml of preservative free normal saline(total of 10ml)solution was injected with washout of epidurogram. Needle was withdrawn intact. Skin was cleansed, and bandage was applied. COMPLICATIONS: None DISPOSITION / PLANS: The patient was placed in a supine position and transferred to the recovery area in a stable condition for observation and was discharged from the recovery room after meeting discharge criteria. Home discharge instructions given to the patient by the staff. The patient was reexamined prior to discharge. The patient will schedule a follow up in the clinic in 2-4 weeks.
--- NOTE | 2024-09-06 08:04 | FL ---
EXAMINATION TYPE: FL guided pain mgmt statistic Intraoperative/procedural fluoroscopic services were provided. CLINICAL INDICATION:Female, 74 years old with history of Caudal Inj; , [facility] FINDINGS: Fluoroscopic images demonstrating caudal injection. No radiographic evidence for complication. Total fluoroscopy time is 21.5 seconds. DAP: [id number] mGym2 Please see the operative/procedural note for further details. [facility], , 09/06/2024 8:02 AM
[2024-09-06 08:09] VITALS: RESP 18
[2024-09-06 08:20] VITALS: BP 128/78; PULSE 66
== END 2024-09-06 08:29 | disposition home or self-care (01) ==
LOC: ORPAIN 06:31
PROVIDERS: ATTEND Specialist
DX: M96.1 Postlaminectomy syndrome, not elsewhere classified (principal); L23.1 Allergic contact dermatitis due to adhesives; Z88.2 Allergy status to sulfonamides
CPT/HCPCS: 62323; Q9966; J1010